=== PATIENT | male | born 1945 | race Caucasian/White ===

== ENCOUNTER 2018-04-29 17:33 | Inpatient (IN) ==
[2018-04-29] MEDS ORDERED: CARDIZEM ONE (17:41)
[2018-04-29] MEDS ORDERED: CARDIZEM IV ONE ×2 (17:46→18:08)
[2018-04-29] MEDS ORDERED: NITROGLYCERIN TOP ONE ×2 (17:47→19:08)
[2018-04-29 17:54] LABS: BE -1.7 mmoll (-3.0-3.0); BLOOD TYPE ARTERIAL; HCO3-(ACT) 23.5 mmoll (20.0-26.0); METHB 0.4 % (0.0-1.5); PCO2(98.6) 38 mmHg (35-45); PO2(98.6) 68 mmHg (60-100); SAMPLE BLOOD; SAO2 93.6 % (95.0-100.0); SRATE 20 BPM; THB 11.6 g/dL (11.5-17.4); pH(98.6) 7.39 (7.35-7.45)
--- NOTE | 2018-04-29 17:54 | EKG Report ---
Test Performed on : 04/29/2018 5:36:53 PM Test Reason : CHF Blood Pressure : / mmHG Vent. Rate : 139 BPM Atrial Rate : 133 BPM P-R Int : 000 ms QRS Dur : 136 ms QT Int : 358 ms P-R-T Axes : 000 234 170 degrees QTc Int : 544 ms Atrial fibrillation. with rapid ventricular response. with premature ventricular or aberrantly conduc angie complexes. Right superior axis deviation Nonspecific intraventricular block Cannot rule out Anteroseptal infarct (cited on or before 22-DEC-2017) Abnormal ECG When compared with ECG of 22-DEC-2017 23:27, Atrial fibrillation. has replaced Sinus rhythm. Vent. rate has increased BY 64 BPM Nonspecific intraventricular block has replaced Incomplete right bundle branch block Questionable change in initial forces of Anteroseptal leads Unconfirmed Result
[2018-04-29 18:04] LABS: ALLEN TEST YES; MODALITY BI PAP
[2018-04-29 18:15] LABS: BASO# 0.04 X1000 (0.0-0.2); BASO% 0.3 % (0.0-0.8); EOS# 0.08 X1000 (0.0-0.7); EOS% 0.6 % (0.0-10.0); HEMATOCRIT 36.1 % (42.0-52.0); HEMOGLOBIN 11.1 g/dL (14.0-18.0); IMM GRAN# 0.04 X1000 (0.0-0.04); IMM GRAN% 0.3 % (0.0-0.5); MCH 24.4 PG (27-31); MCHC 30.7 g/dL (33-37); MCV 79.3 FL (81-99); MONO% 6.4 % (1.7-9.3); MPV 10.5 FL (7.4-10.4); NEUT% 87.4 % (42.2-75.2); PLT 262 X1000 (130-400); RBC 4.55 XMIL (4.7-6.1); RDW 17.3 % (11.5-14.5); WBC 13.96 X1000 (4.8-10.8)
[2018-04-29] MEDS ORDERED: VANCOMYCIN 1 GM/NS 1 GM/250 ML IVPB IV ONE ×2 (18:32→21:00)
[2018-04-29] MEDS ORDERED: ZOSYN 3.375 GM in NS 50 ML IV ONE (18:33)
[2018-04-29] MEDS ORDERED: OFIRMEV 1000 MG/ISOTONIC SOLN 1,000 MG/100 ML BOTTLE IV STA (18:34)
[2018-04-29 18:43] LABS: INR 1.13; PROTIME 15.1 Seconds (11.0-16.0)
--- NOTE | 2018-04-29 18:43 | Diag Imaging Result Doc PS360 ---
EXAM: CHEST-PORTABLE INDICATION: sob TECHNIQUE: One view COMPARISON: 03/29/2018 FINDINGS: Lung volumes are low. There has been interval removal of the PICC line seen on the previous study. Central vasculature is prominent suggesting pulmonary venous congestion. There is suggestion of a small left effusion with adjacent atelectasis. Cardiac silhouette appears prominent similar to the previous study. IMPRESSION: Pulmonary venous congestion and left pleural effusion. Electronically signed by Tremaine Barajas 04/29/2018 6:40 PM
[2018-04-29 18:44] LABS: PTT 35.5 Seconds (22.3-41.8)
[2018-04-29] MEDS ORDERED: LASIX IV ONE (18:45)
[2018-04-29] MEDS ORDERED: ROCEPHIN 1 GM in NS 50 ML IV ONE (18:45)
[2018-04-29 18:49] LABS: AGAP 16; ALBUMIN 3.2 g/dL (3.5-5.0); ALKALINE PHOSPHATASE 64 U/L (32-122); BUN 9 mg/dL (8-22); CALCIUM 8.9 mg/dL (8.8-10.2); CHLORIDE 102 mmol/L (98-107); CK PROFILE 81 U/L (24-204); COSMO 281; CREATININE 0.5 mg/dL (0.7-1.2); ESTIMATED GFR > 60; GLUCOSE 192 mg/dL (70-104); GOT 23 U/L (10-34); GPT 7 U/L (10-44); POTASSIUM 3.7 mmol/L (3.5-5.1); SODIUM 139 mmol/L (136-145); TCO2 21 mmol/L (25-35); TOTAL PROTEIN 8.1 g/dL (6.3-8.3)
[2018-04-29] MEDS ORDERED: VANCOMYCIN IV PER PHARMACY MISC SCH (19:15)
--- NOTE | 2018-04-29 19:23 | PROVIDER DOCUMENTATION ---
This chart was entered by Eli Washington Scribe, acting as scribe for Venancio Gomez MD. HPI-Respiratory General - General Chief Complaint: Shortness of Breath Stated Complaint: RESPIRATORY Time Seen by Provider: 04/29/18 17:38 Source: patient Allergies/Adverse Reactions: Patient Allergies Allergy/AdvReac Type Severity Reaction Status Date / Time No Known Allergies Allergy Verified 04/28/18 19:16 Home Medications: Home Medication List Medication Instructions Recorded Confirmed Last Taken Type Bisoprolol Fumarate/Hctz 1 each PO DAILY 11/06/17 04/29/18 04/28/18 08:30 History [Bisoprolol-Hctz 5-6.25 mg Tab] Citalopram Hydrobromide 40 mg PO DAILY 11/06/17 04/29/18 04/28/18 08:30 History [Citalopram HBr] Metformin HCl [Metformin HCl ER] 500 mg PO TID 11/06/17 04/29/18 04/28/18 08:30 History Amlodipine [Norvasc] 10 mg PO DAILY #30 tab 11/10/17 04/29/18 04/28/18 08:30 Rx Hydralazine [Apresoline] 25 mg PO TID #90 tab 11/10/17 04/29/18 04/28/18 08:30 Rx Aspirin 81 mg PO DAILY 12/22/17 04/29/18 04/28/18 08:30 History Montelukast Sodium [Singulair] 10 mg PO DAILY 12/22/17 04/29/18 04/28/18 08:30 History SIMVAstatin [Zocor] 40 mg PO QHS 12/22/17 04/29/18 04/27/18 21:00 History Omeprazole [Prilosec] 40 mg PO DAILY@0700 capsule 12/27/17 04/29/18 04/28/18 08 :30 Rx Albuterol 2.5MG/Ipratrop 0.5MG 3 ml INH RTQ4H neb 02/24/18 04/28/18 Unknown Rx [Duoneb (A & A)] Clotrimazole/Bmethasone Cream 0 gm TOP BID tube 02/24/18 04/28/18 Unknown Rx [Lotrisone Cream] Furosemide [Lasix] 40 mg PO BID #60 02/24/18 04/29/18 04/28/18 08:30 Rx Insulin Glargine [Basaglar] 50 unit SUBQ HS insuln.pen 02/24/18 04/28/18 21:00 Rx Insulin Lispro [Humalog] 15 unit SQ TID AC #3 cartridge 02/24/18 04/28/18 08:30 Rx - History of Present Illness-Resp Nature of Presenting Problem: 73y/o white male with hx of diabetes, CHF, HTN who was recently treated with IV antibiotics for infection of R great toe presents via EMS with sob and productive cough with white sputum since yesterday. He denies chest pain currently. He denies hx of renal disease, cardiac disease, NM, stent placement. He denies smoking and alcohol use. He reports taking aspirin today. EMS gave the patient BiPAP, 4 units of nitro, and 40mg lasix en route to the ED. He denies diarrhea. Quality of Pain: reports: other (unsure) Severity in ED: reports: mild Onset/Duration: reports: 24 hours ago (yesterday) Timing: reports: still present, constant Cough Quality/Degree: reports: productive cough, sputum (white), blood streaked sputum Modifying Factors: improves with: nothing Associated Symptoms: reports: shortness of breath. denies: chest pain/soreness Similar Symptoms Previously?: No Recently seen or treated by another doctor?: No Review of Systems - Adult - REVIEW OF SYSTEMS - ADULT Constitutional: reports: fever. denies: chills Eyes: denies: discharge, dry eyes Ears, Nose, Mouth & Throat: denies: ear discharge, ear pain Cardiovascular: denies: chest pain, palpitations Respiratory: reports: cough, shortness of breath Gastrointestinal: denies: abdominal pain, diarrhea, vomiting Genitourinary: denies: dysuria, hematuria Musculoskeletal: denies: back pain, muscle aches, muscle weakness Integumentary: reports: no symptoms reported Neurological: denies: dizziness/vertigo, headache/migraines Psychiatric: reports: no symptoms reported Endocrine: reports: no symptoms reported Hematologic/Lymphatic: reports: no symptoms reported Allergic/Immunologic: reports: no symptoms reported All Other Systems: Reviewed and Negative Past History - Adult - PAST MEDICAL HISTORY-ADULT Review of Records: reports: Old Records Reviewed, Nursing Assessment Review, Medications Reviewed Major Childhood Illnesses: reports: denies history Cardiovascular: reports: CHF, HTN, hyperlipidemia Respiratory: reports: pneumonia Gastrointestinal: reports: denies history Obstetrical/Gynecological: reports: denies history Genitourinary: reports: denies history Musculoskeletal: reports: arthritis Neurological: reports: CVA, dementia Psychiatric: reports: depression Endocrine/Immune: reports: Diabetes Other Conditions: reports: denies history - PRIOR SURGERIES/PROCEDURES Surgical/Procedure History: reports: none - PRIOR HOSPITALIZATIONS Prior Hospitalizations: reports: none - IMMUNIZATION STATUS Childhood Immunizations: See Nurse Assessment Flu Vaccine: See Nurse Assessment - FAMILY HISTORY Family History: reviewed, not pertinent - SOCIAL HISTORY Smoking: non-smoker Substance Use: denies Living Situation: family Physical Exam-General - PHYSICAL EXAM-ADULT Exam Limited by: obesity Initial Vital Signs Reviewed: Yes - CONSTITUTIONAL General Appearance: alert, moderate distress, obese - EYES Eyes: PERRL/EOMI, pink conjunctivae - HEAD, EARS, NOSE, MOUTH & THROAT HENMT: pharynx normal. negative: moist mucous membranes (dry) - NECK Neck: non-tender, supple - RESPIRATORY Respiratory: respiratory distress, decreased breath sounds, accessory muscle use , crackles, rales, rhonchi, other (tachypneic) - CARDIOVASCULAR Cardiovascular: tachycardia - GASTROINTESTINAL (ABDOMEN) Abdominal Exam: non tender, soft - GENITOURINARY Male Genitalia: scrotal swelling. negative: erythema - MUSCULOSKELETAL Extremity: non-tender, pedal edema (LLE, RLE) - SKIN Integumentary: normal color, warm/dry, abrasion(s) (healing, RLE) - NEUROLOGIC Neurologic: grossly normal, no motor/sensory deficits - PSYCHIATRIC Psych/Mental Status: normal mood/affect, normal thought content, normal thought process, oriented x 3 Progress - PLAN OF CARE/RESULTS Progress/Plan/Lab Results: Vital Signs - 8 hr 04/29/18 17:35 04/29/18 17:36 04/29/18 18:07 Temperature Pulse Rate 146 H 145 H 130 H Respiratory Rate 36 H 36 H 30 H Blood Pressure 182/74 170/88 O2 Sat by Pulse Oximetry 95 94 L 94 L 04/29/18 18:24 04/29/18 18:45 Temperature 101.4 F H Pulse Rate 138 H Respiratory Rate 27 H Blood Pressure 149/77 O2 Sat by Pulse Oximetry 92 L Laboratory Results - last 24 hr 04/29/18 04/29/18 04/29/18 17:30 17:55 17:55 WBC 13.96 H RBC 4.55 L Hgb 11.1 L Hct 36.1 L MCV 79.3 L MCH 24.4 L MCHC 30.7 L RDW Std Deviation 17.3 H Plt Count 262 MPV 10.5 H Immature Gran % (Auto) 0.3 Neut % (Auto) 87.4 H Lymph % (Auto) 5.0 L Bailey % (Auto) 6.4 Eos % (Auto) 0.6 Baso % (Auto) 0.3 Immature Gran # (Auto) 0.04 Neut # (Auto) 12.20 H Lymph # (Auto) 0.70 L Bailey # (Auto) 0.90 H Eos # (Auto) 0.08 Baso # (Auto) 0.04 PT INR PTT (Actin FS) Specimen Type ARTERIAL Sample Site R RADIAL pH 7.39 pCO2 38 pO2 68 HCO3 23.5 Base Excess -1.7 Oxyhemoglobin 92.0 L ABG O2 Sat (Calculated) 15.0 ABG O2 Saturation 93.6 L ABG Carboxyhemoglobin 1.30 ABG Methemoglobin 0.4 Yeison Test YES A-a O2 Difference 241.0 Total Hemoglobin 11.6 Lactate 3.50 H Blood Gas Modality BI PAP Vent Mode BIPAP Spontaneous Rate 20 FiO2 % 50.0 Inspiratory BiPAP 22.0 Expiratory BiPAP 8.0 Sodium 139 Potassium 3.7 Chloride 102 Carbon Dioxide 21 L Anion Gap 16 BUN 9 Creatinine 0.5 L Estimated GFR/1.73 m2 > 60 BUN/Creatinine Ratio 18 Glucose 192 H Calculated Osmolality 281 Calcium 8.9 Magnesium Total Bilirubin 0.90 AST 23 ALT 7 L Alkaline Phosphatase 64 Creatine Kinase 81 Troponin T [id number] Pept Total Protein 8.1 Albumin 3.2 L Globulin 5.0 Albumin/Globulin Ratio 1.0 Plasma Lactate 04/29/18 04/29/18 04/29/18 17:55 17:55 17:55 WBC RBC Hgb Hct MCV MCH MCHC RDW Std Deviation Plt Count MPV Immature Gran % (Auto) Neut % (Auto) Lymph % (Auto) Bailey % (Auto) Eos % (Auto) Baso % (Auto) Immature Gran # (Auto) Neut # (Auto) Lymph # (Auto) Bailey # (Auto) Eos # (Auto) Baso # (Auto) PT 15.1 INR 1.13 PTT (Actin FS) 35.5 Specimen Type Sample Site pH pCO2 pO2 HCO3 Base Excess Oxyhemoglobin ABG O2 Sat (Calculated) ABG O2 Saturation ABG Carboxyhemoglobin ABG Methemoglobin Yeison Test A-a O2 Difference Total Hemoglobin Lactate Blood Gas Modality Vent Mode Spontaneous Rate FiO2 % Inspiratory BiPAP Expiratory BiPAP Sodium Potassium Chloride Carbon Dioxide Anion Gap BUN Creatinine Estimated GFR/1.73 m2 BUN/Creatinine Ratio Glucose Calculated Osmolality Calcium Magnesium Total Bilirubin AST ALT Alkaline Phosphatase Creatine Kinase Troponin T < 0.010 [id number]-Uzivzlqafxi Pept 1868 H Total Protein Albumin Globulin Albumin/Globulin Ratio Plasma Lactate 04/29/18 04/29/18 17:55 19:00 WBC RBC Hgb Hct MCV MCH MCHC RDW Std Deviation Plt Count MPV Immature Gran % (Auto) Neut % (Auto) Lymph % (Auto) Bailey % (Auto) Eos % (Auto) Baso % (Auto) Immature Gran # (Auto) Neut # (Auto) Lymph # (Auto) Bailey # (Auto) Eos # (Auto) Baso # (Auto) PT INR PTT (Actin FS) Specimen Type Sample Site pH pCO2 pO2 HCO3 Base Excess Oxyhemoglobin ABG O2 Sat (Calculated) ABG O2 Saturation ABG Carboxyhemoglobin ABG Methemoglobin Yeison Test A-a O2 Difference Total Hemoglobin Lactate Blood Gas Modality Vent Mode Spontaneous Rate FiO2 % Inspiratory BiPAP Expiratory BiPAP Sodium Potassium Chloride Carbon Dioxide Anion Gap BUN Creatinine Estimated GFR/1.73 m2 BUN/Creatinine Ratio Glucose Calculated Osmolality Calcium Magnesium 1.6 Total Bilirubin AST ALT Alkaline Phosphatase Creatine Kinase Troponin T Yyv-I-Eobjmfyzegy Pept Total Protein Albumin Globulin Albumin/Globulin Ratio Plasma Lactate 3.3 H Orders Category Date Time Status Admit - [facility] Routine AdmDCTranf 04/29/18 19:01 Active Activity - Strict Bedrest ORDERED Care 04/29/18 19:01 Active Cardiac Monitoring DIRECTED Care 04/29/18 17:34 Active Oxygen Therapy- ED Nursing DIRECTED Care 04/29/18 17:34 Active Resuscitation Status Routine Care 04/29/18 19:01 Ordered Saline Loc NOW Care 04/29/18 17:34 Active Vital Signs Order RTQ1H Care 04/29/18 19:01 Active Z-Document. for Tele Applied ORDERED Care 04/29/18 19:05 Active NPO Diet 04/29/18 19:04 Active CHEST-PORTABLE [RAD] Stat Exams 04/29/18 17:36 Completed ABG [RESP] Routine Lab 04/29/18 17:30 Completed BLOOD CULTURE [BLDCUL] Stat Lab 04/29/18 18:40 Ordered CBC WITH ELECTRONIC DIFF [HEME] Stat Lab 04/29/18 17:55 Completed CK PROFILE [SP CHEM] Stat Lab 04/29/18 17:55 Completed COMPREHENSIVE METABOLIC PANEL [CHEM] Stat Lab 04/29/18 17:55 Completed LACTATE, PLASMA [CHEM] Stat Lab 04/29/18 19:00 Completed MAGNESIUM [CHEM] Stat Lab 04/29/18 17:55 Completed PRO B-NATRIURETIC PEPTIDE Stat Lab 04/29/18 17:55 Completed PROTIME WITH INR [COAG] Stat Lab 04/29/18 17:55 Completed PTT [COAG] Stat Lab 04/29/18 17:55 Completed TROPONIN T Q4H Lab 04/29/18 20:00 Ordered TROPONIN T Q4H Lab 04/30/18 00:00 Ordered TROPONIN T Stat Lab 04/29/18 17:55 Completed Acetaminophen [Ofirmev 1000 mg/Isotonic Soln] Med 04/29/18 18:34 Discontinued 1,000 mg in 100 ml IV STAT CefTRIAXONE [Rocephin] 1 gm Med 04/29/18 18:45 Discontinued 0.9% Sodium Chloride Inj [Ns] 50 ml IV NOW Diltiazem [Cardizem] Med 04/29/18 17:46 Discontinued 10 mg IV NOW ONE Diltiazem [Cardizem] Med 04/29/18 18:08 Discontinued 10 mg IV NOW ONE Diltiazem [Cardizem] Med 04/29/18 17:41 Discontinued 25 mg .ROUTE .STK-MED ONE Furosemide [Lasix] Med 04/29/18 19:15 Ordered 40 mg IV Q12H Furosemide [Lasix] Med 04/29/18 18:45 Discontinued 60 mg IV NOW ONE Nitroglycerin Med 04/29/18 19:08 Discontinued 0.5 inch TOP NOW ONE Nitroglycerin Med 04/29/18 17:47 Discontinued 1 inch TOP NOW ONE Pharmacy Order [Vancomycin IV Per Pharmacy] Med 04/29/18 19:15 Ordered 1 each MISC DIRECTED Piperacillin/Tazobactam [Zosyn] 3.375 gm Med 04/29/18 18:33 Discontinued 0.9% Sodium Chloride Inj [Ns] 50 ml IV NOW Piperacillin/Tazobactam [Zosyn] 3.375 gm Med 04/29/18 19:15 Ordered 0.9% Sodium Chloride Inj [Ns] 50 ml IV Q6H Vancomycin 1 gm/Ns Med 04/29/18 18:32 Active 1 gm in 250 ml IV NOW BIPAP Stat Oth 04/29/18 17:40 Active CP/SOB/Palp >45 yrs of Age Stat Oth 04/29/18 17:34 Ordered Telemetry [OM.EQ] Routine Oth 04/29/18 19:01 Active EKG [EKG] Stat Ther 04/29/18 17:34 Draft Transfer/Admit Order [TRANSFER] Routine Transfer 04/29/18 19:06 Ordered patient is currently in right sided heart failure. IV fluid bolus would be contraindicated and very harmful to patient Result Diagrams: 04/29/18 17:55 04/29/18 17:55 - EKG 1 Time of EKG reading by physician:: 17:37 EKG Read and Signed by:: Satish Jennings EKG Interpretation (*Must complete 3 of following elements*): Abnormal Rate: 139 Rhythm: Atrial fibrillation w rapid vent response w erick. vent or aberr. cond. cpxs [place]: right Comments: wide based tachycardia, PVC's 2 Time of EKG reading by physician:: 18:00 EKG Read and Signed by:: Satish Jennings EKG Interpretation (*Must complete 3 of following elements*): Abnormal Rate: 135 Rhythm: Atrial fibrillation w rapid vent response w erick. vent or aberr. cond. cpxs [place]: right ST Wave: non-specific ST changes Comments: wide based tachycardia - CONSULTS/PCP/HOSPITALIST Notification #1 *Consult/PCP/Hospitalist*: Dr. Castle Time Discussed: 18:45 Consult Disposition: other (Patient has new onset A-fib and R-sided corpulmonale ) #2 Consult: Dr. Reed Time Discussed: 18:55 Consult Disposition: Admit - CHANGE OF SHIFT REPORT (ED Provider) Report Given and Care Transferred to:: Dr. Jennings transfer to Dr. Gomez Time of Transfer: 19:00 Items Pending: Other Departure - Departure Date of Disposition Decision: 12/29/18 Time of Disposition Decision: 19:25 DIAGNOSIS: New onset atrial fibrillation, Febrile illness, Diabetic foot infection CHF (congestive heart failure) Qualifiers: Heart failure type: right-sided Heart failure chronicity: acute Qualified Code( s): I50.811 - Acute right heart failure Disposition: ADMITTED INPATIENT 09 Certified Medical Emergency: Emergent Condition: Stable Additional Freetext Instructions: ED Follow Up Instructions: You have been treated by a care provider in the Emergency Department. These instructions are being provided to you so you can have an understanding of how to care for yourself upon discharge. Upon discharge from the Emergency Department, you are responsible for making arrangements for follow-up care by a physician of your choice. Take all prescribed medications as directed. Return to the Emergency Department immediately for any new or worsening symptoms. You may call the Physician Referral phone number at [phone] to obtain a list of Physicians who are taking new patients. - Critical Care Note This patient required my direct & personal management of CC.: Yes Total Time (mins): 95 Critical Care Statement: This patient required my direct personal management to treat or rule out processes, the absence of which, could potentiallly result in sudden, clinically significant life or limb threatening deterioration. Attestation - Physician/ NANNETTE Attestation Patient care was provided by Advanced Practice Provider:: Yes Advanced Practice Provider:: Cookie Carey Advanced Practice Provider documentation review:: The Mid-level provider documentation, treatment plan and medical decision making was reviewed by the physician who agrees with all treatment and medical decision making by the MLP. The physician spent face to face time with patient:: Yes Advanced Practice Provider documentation review:: Supervising physician onsite and consulted in the evaluation and care of this patient. The physician did have a face to face encounter with the patient. This chart was documented by the indicated scribe, (Eli Washington Scribe) and accurately reflects the services I performed and decisions made by me, Venancio Gomez MD, as attested by the provider's signature.
[2018-04-29] MEDS ORDERED: LOVENOX SUBQ ONE (19:28)
[2018-04-29] MEDS: TYLENOL PO PRN (21:51)
[2018-04-29] MEDS ORDERED: VANCOMYCIN 500 MG/NS 500 MG/100 ML IVPB IV ONE (22:00)
[2018-04-30] MEDS: ZOSYN 3.375 GM in NS 50 ML IV SCH ×4 (01:03→21:12)
[2018-04-30] MEDS: TYLENOL PR PRN (03:06)
[2018-04-30] MEDS: LASIX IV SCH ×3 (05:39→18:18)
[2018-04-30] MEDS ORDERED: XYLOCAINE 2% JELLY UROJECT TOP ONE (11:47)
--- NOTE | 2018-04-30 13:19 | EKG Report ---
Test Performed on : 04/30/2018 1:01:09 PM Test Reason : RYTHEM CHANGE Blood Pressure : / mmHG Vent. Rate : 109 BPM Atrial Rate : 129 BPM P-R Int : 392 ms QRS Dur : 078 ms QT Int : 354 ms P-R-T Axes : -76 056 -36 degrees QTc Int : 476 ms Unusual P axis, possible ectopic atrial tachycardia. with undetermined rhythm irregularity. Low voltage QRS Septal infarct (cited on or before 22-DEC-2017) Abnormal ECG When compared with ECG of 29-APR-2018 17:59, (Unconfirmed) Ectopic atrial rhythm. has replaced Atrial fibrillation. Questionable change in QRS duration Questionable change in initial forces of Anterior leads Confirmed by Satish Jennings MD ([id number]) on 05/02/2018 7:39:01 AM
[2018-04-30] MEDS ORDERED: LOVENOX SUBQ ONE (13:57)
[2018-04-30] MEDS ORDERED: MAGNESIUM SULFATE 2 GM/S.W.I. 2 GM/50 ML IVPB IV ONE (15:42)
[2018-04-30] MEDS ORDERED: HUMALOG DOSE (PARKWAY) SUBQ SCH (16:00)
[2018-04-30] MEDS ORDERED: CARDIZEM 125/NS 125 MG/125 ML IVPB IV SCH ×2 (16:00→19:00)
[2018-04-30] MEDS: VANCOMYCIN 2.5 GM in NS 500 ML IV SCH (17:49)
[2018-04-30] MEDS ORDERED: VANCOMYCIN 2.5 GM in NS 500 ML IV SCH (18:00)
[2018-04-30 18:36] LABS: URINE SOURCE CATH
[2018-04-30 18:40] LABS: BILIRUBIN URINE NEGATIVE (NEGATIVE); BLOOD URINE TRACE (NEGATIVE); COLOR YELLOW; GLUCOSE URINE NEGATIVE (NEGATIVE); KETONE URINE NEGATIVE (NEGATIVE); LEUKOCYTES URINE NEGATIVE (NEGATIVE); NITRITE URINE NEGATIVE (NEGATIVE); PH URINE 5.5; PROTEIN URINE 50 mg/dL (NEGATIVE); SP GRAVITY URINE 1.007; TURBIDITY URINE CLEAR (CLEAR); UROBILINOGEN URINE NORMAL (NORMAL)
[2018-04-30 18:41] LABS: UR EPITHELIAL CELLS <10 /HPF (<10); URINE BACTERIA NEGATIVE /HPF; URINE RBC <10 /HPF (<10); URINE WBC <10 /HPF (<10)
[2018-04-30 20:42] LABS: AGAP 14; BUN 13 mg/dL (8-22); CALCIUM 8.9 mg/dL (8.8-10.2); CHLORIDE 105 mmol/L (98-107); COSMO 286; CREATININE 0.7 mg/dL (0.7-1.2); ESTIMATED GFR > 60; GLUCOSE 151 mg/dL (70-104); MAGNESIUM 1.8 mg/dL (1.5-2.7); PHOSPHORUS 3.7 mg/dL (2.7-4.5); POTASSIUM 3.2 mmol/L (3.5-5.1); SODIUM 142 mmol/L (136-145); TCO2 23 mmol/L (25-35)
[2018-04-30] MEDS ORDERED: KLOR-CON PO SCH (21:00)
[2018-04-30] MEDS ORDERED: BASAGLAR SUBQ SCH (21:00)
[2018-04-30] MEDS: HUMALOG SUBQ SCH (21:11)
[2018-04-30] MEDS: ZOCOR PO SCH (21:12)
[2018-04-30] MEDS: PROTONIX IV SCH (21:12)
[2018-04-30] MEDS: LOTRISONE CREAM TOP SCH (21:12)
[2018-04-30] MEDS: GLUCOPHAGE XR PO SCH (21:12)
--- NOTE | 2018-04-30 21:56 | CARDIOLOGY CONSULTATION ---
DATE: 04/30/2018 INDICATION: Appearance of new onset atrial fibrillation CHIEF COMPLAINT: On presentation was shortness of breath. HISTORY OF PRESENT ILLNESS: Mr. Norton is a 73-year-old gentleman who appears to have a history of cor pulmonale and likely obstructive sleep apnea. He presented for evaluation of shortness of breath that has been going on over the last week or possibly longer. He has not had any heart racing with the exception of episodes that occur when he gets up and out of bed. He denies any orthopnea. The patient reports compliance with his medications. He has been on some outpatient antibiotic therapy for a diabetic foot wound. He has reported subjective fevers at home as high as 101. He did have a temperature of 101.4 degrees occurring yesterday evening at 1824 hours. Currently he is on diuretics however he has had some issues regarding voiding as he may have an obstruction and so his input and output is somewhat difficult to assess. PAST MEDICAL HISTORY: Per chart review is significant for 1. Morbid obesity. 2. Hypertension. 3. Hyperlipidemia. 4. Diabetes. 5. Lymphedema. 6. Osteoarthritis. 7. Diabetic foot wounds. 8. Likely obstructive sleep apnea. SOCIAL HISTORY: The patient does not currently smoke or drink alcohol. He is and lives in [place]. FAMILY HISTORY: Significant for diabetes, hypertension. REVIEW OF SYSTEMS: A 10 system review of systems is negative except for those things mentioned in HPI. PHYSICAL: T-max 101.4 degrees yesterday at 1824 hours. His heart rate is in the low 100s to 110s. His blood pressure is 135/71.General: He is in no acute distress. He is ill-appearing white male morbidly obese, lying relatively flat in bed. HEENT: Oropharynx is moist. He has poor dentition. His eye examination shows pink conjunctivae, white sclerae. Neck: Examination shows no obvious thyromegaly or thyroid tenderness. Cardiovascular: He sounds to be in a irregularly irregular rhythm. His current monitor seems to show a narrow complex tachycardia with some irregularity however it is a very difficult EKG, there does appear to be some occasional organized atrial activity suggesting the possibility of an atrial tach. He has marked bilateral lower extremity edema with skin changes consistent with lymphedema warm and well perfused. Chest: Has coarse breath sounds diffusely. Rales and rhonchi are heard throughout all lung vance as well as significant upper airway noise. No increased work of breathing. Abdomen: Soft, nontender, nondistended. He has no obvious organomegaly but it is a difficult exam secondary to his morbid obesity. Skin: Warm and dry throughout. He has lymphedema skin changes in his distal extremities with multiple areas of skin cracking. Neurological: He seems to be moving all extremities well. PERTINENT DATA: His original EKG yesterday at 1736 hours shows a wide complex tachycardia. This appears to be possibly aberrant conduction as there is some irregularity in it. His subsequent EKG occurring today at 1301 shows a narrow complex tachycardia 109 beats per minute. This may be an atrial tach. His chest x-ray demonstrates pulmonary venous congestion as well as a left pleural effusion. Does appear to be evidence of significant cardiomegaly on this examination. Difficult film. His laboratory data demonstrates white count of 13.9 which is up from his level of 6.2 on the 27 of March, his platelet count is 262,000, his hematocrit is 36, his sedimentation rate was 56 in March with a CRP of 22. His sodium is 139, potassium 3.7, BUN 9, creatinine 0.5. Cardiac enzymes are negative. His proBNP is 1868. ASSESSMENT: Mr. Norton is a 73-year-old morbidly obese white male with a history of a recent diabetic foot wound on home antibiotics. He presented with a new onset cardiac arrhythmia which appears most consistent with either atrial tach or atrial fibrillation. PLAN: I agree with continued use of diuretics. He is pending transfer over to [facility] for definitive management of his potential urinary obstruction/outlet issue. We will replete his magnesium. We will use a diltiazem infusion initially to try to control his heart rate. We will check a limited echocardiogram tomorrow to reevaluate his heart function. cc: MD Hayden Levine MD
[2018-04-30] MEDS ORDERED: POTASSIUM CHLORIDE 20% LIQUID PO ONE (22:14)
--- NOTE | 2018-04-30 22:36 | HISTORY AND PHYSICAL ---
CHIEF COMPLAINT: Shortness of breath. PRIMARY CARE PHYSICIAN: Dr. Alejandre. HISTORY OF PRESENT ILLNESS: This is a 73-year-old gentleman with a history of insulin-dependent diabetes mellitus, peripheral neuropathy, hypertension, cor pulmonale and recent MRSA secondary to osteomyelitis of his right great toe. He presents to the emergency room via EMS which he called for shortness of breath. On his arrival to the emergency room, he was on BiPAP and at that time he had an O2 saturation of 94-95% with blood gases with a pH of 7.39, pCO2 of 38 and pO2 of 68. He was found to be an atrial fibrillation with rapid ventricular rate and subsequently he was admitted to ICU for further evaluation and treatment. At the time of my exam, the patient is lying flat in the bed in the ICU with BiPAP in use, respirations are 18 to 20, heart rate 94 and he does state that he feels much better. PHYSICAL EXAMINATION: EYES: Pupils are equal, round, react to light. EOMs are intact. Sclerae are anicteric. HEENT: Head is normocephalic, atraumatic. Mucous membranes are dry. NECK: Supple with trachea midline. CARDIOVASCULAR: S1 and S2 are heard. He does have a 2-3/6 murmur at the apex. He has bilateral lower extremity edema with peripheral pulses palpable x4 extremities. PULMONARY: Breath sounds have wheezes scattered throughout. Chest rises and falls symmetrically with respiration. Chest wall is nontender to palpation. GASTROINTESTINAL: Abdomen is soft, nontender, nondistended with bowel sounds in all 4 quadrants. GENITOURINARY: Urine is light dante. NEUROLOGIC: He follows commands. He is alert. He nods yes and no to questions and he does try to talk through BiPAP. SKIN: Warm and dry. He does have a scab to his right foot with redness around his right great toe with known osteomyelitis. LABS: WBC is 13 with hemoglobin 11.1, hematocrit 36.1, and platelets 262,000. Sodium is 139, potassium 3.7, BUN 9, creatinine 0.5 with a glucose of 192. Troponins are negative on multiple occasions. Blood cultures are pending. Chest x-ray revealed pulmonary venous congestion and left pleural effusion. ASSESSMENT AND PLAN: 1. Tachycardia. It is not really clear if this is atrial fibrillation or aberrantly conducted complexes. We will consult Cardiology. We will give Lovenox 1 mg/kg and further treatment will be per Cardiology's expertise. 2. Uncontrolled diabetes mellitus. He will be placed on pattern blood glucose with sliding scale insulin. 3. Hypertension. We will trend his vital signs and restart home medications as appropriate. 4. Hyperlipidemia, aware. 5. Gastric reflux disease. We will start Protonix. 6. Cor pulmonale. We are aware. As stated above, cardiology consult. We will continue diuresis with Lasix 40 mg q.12 hours. 7. Recent osteomyelitis for methicillin-resistant Staphylococcus aureus to right toe. The patient has just recently completed antibiotics for 6 weeks, but as he has a white count we will get blood cultures and we will restart vancomycin and Zosyn and then further antibiotics will be culture dependent. Of course, we will continue telemetry. We will order CBC, CMP and magnesium in the morning. Further treatments pending hospital course. Dictated by CAROLINE Ruano for Delmar Reed MD This chart was documented by, CAROLINE Ruano and accurately reflects the services performed, treatment plan and medical decisions as attested by the providers signature Delmar eRed MD. cc: CAROLINE Ruano MD Bharat K. Vakharia, MD
[2018-04-30 22:38] LABS: ALLEN TEST YES; BE 4.8 mmoll (-3.0-3.0); BLOOD TYPE ARTERIAL; HCO3-(ACT) 28.7 mmoll (20.0-26.0); METHB 0.8 % (0.0-1.5); O2(CT) 14.3 mL/dL (15.0-23.0); O2HB 95.7 % (95.0-99.0); PCO2(98.6) 36 mmHg (35-45); PO2(98.6) 106 mmHg (60-100); SAMPLE BLOOD; SAO2 96.9 % (95.0-100.0); THB 10.5 g/dL (11.5-17.4)
[2018-04-30 22:38] LABS: AGAP 14; BUN 13 mg/dL (8-22); CALCIUM 8.8 mg/dL (8.8-10.2); CHLORIDE 104 mmol/L (98-107); COSMO 286; CREATININE 0.7 mg/dL (0.7-1.2); ESTIMATED GFR > 60; GLUCOSE 140 mg/dL (70-104); POTASSIUM 3.1 mmol/L (3.5-5.1); SODIUM 142 mmol/L (136-145); TCO2 24 mmol/L (25-35)
[2018-04-30 22:39] LABS: MODALITY CANNULA
--- NOTE | 2018-04-30 22:54 | HISTORY AND PHYSICAL ---
ADDENDUM: The patient seen and examined by myself. Full note dictated and discussed with nurse practitioner. Patient presented to the ER with a diabetic foot and ho was noted to be in atrial fibrillation with rapid ventricular response. Therefore, we will place him in the hospital ICU, ask Cardiology for assistance, continue his antibiotics for his foot and we will follow. cc: MD Hayden Almanza MD
--- NOTE | 2018-05-01 01:11 | HISTORY AND PHYSICAL ---
HISTORY OF PRESENT ILLNESS: Mr. Norton, who is a patient of Dr. Alejandre, went to [facility] for shortness of breath. He was found to be in congestive heart failure. He had left-sided pleural effusion, and was hospitalized there in the ICU. He was seeing Dr. Delmar Reed there. He was transferred this afternoon over here. He is being treated for congestive heart failure. He has a history of atrial fibrillation, without having any heart attack. He has a history of congestive heart failure. He says he gets lot of fluid on his legs. He was admitted in January here at [place] under Dr. Alejandre for stasis dermatitis and severe bilateral edema. There is a possibility of cirrhosis because he has splenomegaly. However, he says he does not have cirrhosis. He has insulin-dependent diabetes. MEDICATIONS: Diltiazem, furosemide, insulin, and Protonix at the present time. His medications at home include amlodipine, aspirin, bisoprolol HCT, citalopram, clotrimazole, or Lotrisone cream, furosemide tablets, hydralazine, Basaglar 75 units, Humalog, lisinopril, metformin, montelukast, omeprazole, and simvastatin. Currently, he stays at home with his . PAST SURGICAL HISTORY: No apparent surgeries in the past. He had a colonoscopy, which was negative. REVIEW OF SYSTEMS: Other than shortness of breath, he denies having any chest pain. He denies having any other issues, except for shortness of breath. PHYSICAL EXAMINATION: VITAL SIGNS: Pulse 121, irregularly irregular, respiratory rate 23 per minute, blood pressure 157/89, and his mean arterial blood pressure was felt. HEAD: Normocephalic. EYES: Pupils PERRLA. Fundus examination not done. NECK: Supple. JVP normal. ENT: Unremarkable. PERIPHERAL VASCULAR: There is no evidence of lymphadenopathy, thyroid enlargement, pedal edema, calf tenderness, anemia, cyanosis, or clubbing. Pedal pulses feeble. He has gross bilateral edema, but at present, with Lasix, the edema in the legs is about cleared up. BREAST: Reveals gynecomastia. He is grossly obese. HEART: PMI cannot be located. Heart sounds normal. No murmur, gallop, or rub noted. Heart is irregular. ABDOMEN: Obese. Hernial orifices normal. No guarding, rigidity, free fluid, masses, or organomegaly. Bowel sounds normal. RECTAL: Deferred. INDUSTRIAL PSYCHOLOGY PROFESSOR: Higher functions are normal. Cranial nerves normal. Motor and sensory system examination unremarkable. Deep tendon reflexes normal. Plantars downgoing. Skull and spine examination normal for age. He is in the bed, cannot move much. Gait was not checked. CLINICAL IMPRESSION: Congestive heart failure. Plan to continue the current management outlined for congestive heart failure. He had a Cardiology consult with Dr. Castle, and he has been followed by the type inspector. cc: MD Hayden Roca MD
[2018-05-01] MEDS: ZOSYN 3.375 GM in NS 50 ML IV SCH ×4 (02:34→21:32)
[2018-05-01] MEDS: TYLENOL PO PRN (02:43)
[2018-05-01 05:57] LABS: BASO# 0.04 X1000 (0.0-0.2); BASO% 0.5 % (0.0-0.8); EOS# 0.33 X1000 (0.0-0.7); EOS% 3.9 % (0.0-10.0); HEMATOCRIT 32.4 % (42.0-52.0); HEMOGLOBIN 9.8 g/dL (14.0-18.0); LYMPH# 0.89 X1000 (1.2-3.4); LYMPH% 10.6 % (20.5-51.1); MCH 24.4 PG (27-31); MCHC 30.2 g/dL (33-37); MCV 80.8 FL (81-99); MONO# 1.02 X1000 (0.11-0.59); MONO% 12.1 % (1.7-9.3); MPV 10.3 FL (7.4-10.4); NEUT# 6.13 X1000 (1.4-6.5); NEUT% 72.9 % (42.2-75.2); PLT 195 X1000 (130-400); RBC 4.01 XMIL (4.7-6.1); RDW 17.4 % (11.5-14.5); WBC 8.41 X1000 (4.8-10.8)
[2018-05-01] MEDS: LASIX IV SCH ×2 (06:09→17:13)
[2018-05-01] MEDS: HUMALOG SUBQ SCH ×6 (06:21→21:33)
[2018-05-01 06:52] LABS: AGAP 18; ALB/GLOB RATIO 0.5; ALBUMIN 2.5 g/dL (3.5-5.0); ALKALINE PHOSPHATASE 63 U/L (32-122); BUN 13 mg/dL (8-22); CALCIUM 8.7 mg/dL (8.8-10.2); CHLORIDE 93 mmol/L (98-107); COSMO 272; CREATININE 0.8 mg/dL (0.7-1.2); ESTIMATED GFR > 60; GLUCOSE 129 mg/dL (70-104); GOT 14 U/L (10-34); GPT 5 U/L (10-44); MAGNESIUM 1.7 mg/dL (1.5-2.7); POTASSIUM 3.3 mmol/L (3.5-5.1); SODIUM 135 mmol/L (136-145); TCO2 24 mmol/L (25-35); TOTAL BILIRUBIN 1.13 mg/dL (0.20-1.00); TOTAL PROTEIN 7.6 g/dL (6.3-8.3)
[2018-05-01] MEDS: PRINIVIL PO SCH (09:05)
[2018-05-01] MEDS: APRESOLINE PO SCH ×3 (09:05→17:12)
[2018-05-01] MEDS: ZIAC 5/6.25 MG PO SCH (09:05)
[2018-05-01] MEDS: ASPIRIN PO SCH (09:05)
[2018-05-01] MEDS: CELEXA PO SCH (09:05)
[2018-05-01] MEDS: NORVASC PO SCH (09:06)
[2018-05-01] MEDS: SINGULAIR PO SCH (09:06)
[2018-05-01] MEDS: LOTRISONE CREAM TOP SCH ×2 (09:06→21:34)
--- NOTE | 2018-05-01 10:27 | EKG Report ---
Test Performed on : 04/30/2018 10:12:21 PM Test Reason : CCU. No order in [place] Blood Pressure : / mmHG Vent. Rate : 118 BPM Atrial Rate : 131 BPM P-R Int : 000 ms QRS Dur : 078 ms QT Int : 332 ms P-R-T Axes : 000 106 244 degrees QTc Int : 465 ms Accelerated Junctional rhythm. with frequent premature ventricular complexes. Low voltage QRS Lateral infarct , age undetermined ST & T wave abnormality, consider inferior ischemia ST & T wave abnormality, consider anterior ischemia Abnormal ECG When compared with ECG of 30-APR-2018 22:11, (Unconfirmed) No significant change was found Confirmed by Alexandra PILLAI, Yeison Cole ([id number]) on 05/01/2018 3:19:40 PM
[2018-05-01] MEDS: VANCOMYCIN 2.5 GM in NS 500 ML IV SCH (11:53)
[2018-05-01] MEDS ORDERED: MAGNESIUM SULFATE 2 GM/S.W.I. 2 GM/50 ML IVPB IV ONE (13:30)
[2018-05-01] MEDS: POTASSIUM CHLORIDE 20% LIQUID PO SCH ×2 (13:49→21:33)
--- NOTE | 2018-05-01 14:19 | CARDIOLOGY PROGRESS NOTE ---
DATE: 05/01/2018 SUBJECTIVE: Mr. Norton has no complaints today. He reports he feels a little bit better. His breathing has improved. He has had no palpitations. He appears to have converted into a sinus mechanism. PHYSICAL EXAMINATION: Vital Signs: He is afebrile. His heart rate is in the 50s predominantly. His blood pressure is 111/56. His in and outs over the last 24 hours are -2.3 L. General: He is in no acute distress. Cardiovascular: He is in a regular rate and rhythm. He has no murmurs. No S3. He has marked bilateral lower extremity edema and lymphedema type changes. Chest: Clear but he has very poor inspiratory effort and distant heart sounds. Abdomen: Soft, nontender. PERTINENT DATA: White count 8.4, hematocrit is 32, his platelet count is 195, 000. His sodium is 135, potassium 3.3. His BUN is 13, creatinine 0.8. His magnesium level is 1.7. ASSESSMENT: Mr. Norton is a 73-year-old gentleman who presents with heart failure and new onset atrial fibrillation. PLAN: I have repleted his potassium and magnesium. We will discontinue his diltiazem. He is relatively bradycardic right now so would just continue on the current meds that he is on. I will check an echocardiogram on the patient, basic metabolic panel and a BNP and magnesium will be checked tomorrow morning. cc: MD Hayden Levine MD MTDD
[2018-05-01] MEDS ORDERED: LOVENOX SUBQ SCH (15:30)
--- NOTE | 2018-05-01 15:37 | PROGRESS NOTE ---
DATE: 05/01/2018 SUBJECTIVE: Mr. Norton is a 73-year-old, white gentleman, admitted with febrile illness. Patient had diabetic foot, some fever, chills. Also found to have atrial fibrillation with rapid ventricular response. The patient had shortness of breath. Initially admitted to [facility] ICU. They had hard time putting Kessler catheter. Plan was to send patient to [place] and they have sent patient here for urology evaluation. In [place], nurses were able to place the Kessler catheter. Regional Economist is following patient with us. The patient is feeling some better. The patient converted to sinus rhythm. He denied any chest pain. No nausea or vomiting. Denied any fever or chills. No typical chest pain. His vital sign for the admission history and physical noted. OBJECTIVE: Vital Signs: Noted. Blood pressure low normal. Neck: Supple. No JVD. Lungs: Bibasilar crepitations. Heart: S1 and S2 heard. Abdomen: Soft, globular. Bowel sounds present. Extremities: No cyanosis, clubbing. Patient does have bilateral leg swelling. Some toe infection. Central Nervous System: Alert, awake, answering questions fairly well. LABORATORY DATA: Done today, hemoglobin 9.8, hematocrit 32.4. WBC count 8.41 and platelet count 195,000. Electrolytes: Patient does have hypokalemia. His magnesium is 1.7. The patient's admission chest x-ray did reveal pulmonary venous congestion and left pleural effusion. ASSESSMENT: 1. Consideration atrial fibrillation with rapid ventricular response. Now converted to sinus rhythm. 2. Pulmonary edema. 3. Infected foot. 4. Morbid obesity. 5. Sleep apnea. 6. Chronic respiratory failure. 7. Hypertension. 8. Diabetes mellitus. I am going to cut back his insulin dose. 9. Hypokalemia, will supplement potassium. Overall plan discussed at length with the patient. cc: Hayden Alejandre MD
[2018-05-01] MEDS ORDERED: INSULIN PEN NEEDLES ONE (21:28)
[2018-05-01] MEDS: GLUCOPHAGE XR PO SCH (21:32)
[2018-05-01] MEDS: ZOCOR PO SCH (21:33)
[2018-05-01] MEDS: PROTONIX IV SCH (21:33)
[2018-05-01] MEDS: BASAGLAR SUBQ SCH (21:34)
[2018-05-02] MEDS: ZOSYN 3.375 GM in NS 50 ML IV SCH ×4 (02:57→20:31)
[2018-05-02] MEDS: TYLENOL PO PRN (03:03)
[2018-05-02] MEDS: LASIX IV SCH (06:04)
[2018-05-02] MEDS: HUMALOG SUBQ SCH ×4 (06:28→20:31)
[2018-05-02 07:54] LABS: BASO# 0.04 X1000 (0.0-0.2); BASO% 0.5 % (0.0-0.8); EOS# 0.45 X1000 (0.0-0.7); EOS% 5.5 % (0.0-10.0); HEMATOCRIT 31.5 % (42.0-52.0); HEMOGLOBIN 9.5 g/dL (14.0-18.0); IMM GRAN# 0.02 X1000 (0.0-0.04); IMM GRAN% 0.2 % (0.0-0.5); LYMPH# 0.71 X1000 (1.2-3.4); LYMPH% 8.7 % (20.5-51.1); MCH 24.7 PG (27-31); MCHC 30.2 g/dL (33-37); MCV 81.8 FL (81-99); MONO# 1.05 X1000 (0.11-0.59); MONO% 12.9 % (1.7-9.3); MPV 10.1 FL (7.4-10.4); NEUT% 72.2 % (42.2-75.2); PLT 218 X1000 (130-400); RBC 3.85 XMIL (4.7-6.1); RDW 17.7 % (11.5-14.5); WBC 8.17 X1000 (4.8-10.8)
[2018-05-02 08:14] LABS: AGAP 12; ALB/GLOB RATIO 0.6; ALBUMIN 2.9 g/dL (3.5-5.0); ALKALINE PHOSPHATASE 52 U/L (32-122); BUN 21 mg/dL (8-22); CALCIUM 8.2 mg/dL (8.8-10.2); CHLORIDE 101 mmol/L (98-107); COSMO 278; CREATININE 1.6 mg/dL (0.7-1.2); ESTIMATED GFR 43; GLUCOSE 117 mg/dL (70-104); GOT 10 U/L (10-34); GPT < 5 U/L (10-44); POTASSIUM 4.2 mmol/L (3.5-5.1); SODIUM 137 mmol/L (136-145); TCO2 24 mmol/L (25-35); TOTAL BILIRUBIN 0.89 mg/dL (0.20-1.00); TOTAL PROTEIN 7.5 g/dL (6.3-8.3)
--- NOTE | 2018-05-02 08:34 | Diag Imaging Result Doc PS360 ---
EXAM: CHEST-PORTABLE INDICATION: dyspnea TECHNIQUE: One view COMPARISON: 04/29/2018 FINDINGS: There has been interval complete opacification of the left hemithorax probably due to development of a large pleural effusion and/or marked atelectasis. On the right, pulmonary venous congestion and pulmonary edema have worsened. The cardiac silhouette is largely obscured by the dense opacification on the left. IMPRESSION: Interval development of complete opacification of the left lung as described with worsening pulmonary edema and pulmonary venous congestion. Electronically signed by Tremaine Barajas 05/02/2018 8:32 AM
[2018-05-02] MEDS: SINGULAIR PO SCH (08:36)
[2018-05-02] MEDS: PRINIVIL PO SCH (08:36)
[2018-05-02] MEDS: NORVASC PO SCH (08:36)
[2018-05-02] MEDS: ZIAC 5/6.25 MG PO SCH (08:36)
[2018-05-02] MEDS: CELEXA PO SCH (08:36)
[2018-05-02] MEDS: LOTRISONE CREAM TOP SCH ×2 (08:36→20:30)
[2018-05-02] MEDS: APRESOLINE PO SCH ×3 (08:36→17:34)
[2018-05-02] MEDS: ASPIRIN PO SCH (08:37)
--- NOTE | 2018-05-02 11:57 | ECHO REPORT ---
ORDER DATE: 05/01/2018 INDICATION: Congestive heart failure. FINDINGS: 1. The right atrium is moderately to severely enlarged with a dimension of 5 cm. 2. Mild tricuspid regurgitation. RV systolic pressure of 45. 3. Poor visualization of the right ventricle due to the patient's body habitus, but there appears to be moderate reduction in RV systolic function with an enlargement of the right ventricle. 4. No significant pulmonic insufficiency. 5. Severe left atrial enlargement with a dimension of 5.2 cm and a suggested volume index of 78. 6. No mitral valve prolapse. Trace mitral regurgitation. 7. The left ventricle is mildly dilated at 5.8 cm. Normal wall thicknesses with a posterior and interventricular septal wall thickness 1.1 cm each. Likely normal LV systolic function with an estimated EF of 60%. Definity echo contrast was used to help visualize. 8. The aortic valve opens well. No evidence of stenosis or insufficiency. 9. The aorta appears somewhat dilated with a dimension of 3.9 cm. This was noted previously on echo in August 2017. 10. No pericardial effusion seen. 11. The right ventricle and left ventricle appear to be relatively stable from the echo in August 2017. cc: MD Hayden Levine MD
[2018-05-02] MEDS ORDERED: D5 1/2 NS 500 ML IV SCH (12:45)
--- NOTE | 2018-05-02 13:28 | CARDIOLOGY PROGRESS NOTE ---
DATE: 05/02/2018 SUBJECTIVE: Mr. Norton reports he is feeling a little bit worse today but overall his breathing has improved. He has no other complaints. No pain complaints. PHYSICAL EXAMINATION: Vital signs: Patient is afebrile. His heart rates seem to be in the 50s to 70s. His telemetry currently shows sinus rhythm. His blood pressure is 113/66. His I's and O's seem to be positive over the last 24 hours. General: He is in no acute distress. Cardiovascular: He is in a regular rate and rhythm. He has no obvious murmurs. He has 1+ bilateral lower extremity edema with warm and well perfused lower extremities. Chest: Exam is clear bilaterally with poor inspiratory effort. Abdomen: Soft, nontender. PERTINENT DATA: His white count is 8.1, hematocrit 31, platelet count 218,000. His sodium is 137, potassium 4.2, BUN 21, creatinine 1.6, which is up from 13 and 0.8. ProBNP is 1,546. ASSESSMENT: Mr. Norton is a 73-year-old gentleman with what appears to be right-sided heart failure. In addition, he previously had atrial fibrillation during this hospitalization. PLAN: I will give him a slight fluid challenge. We will recheck his laboratories in the morning. I have stopped his diuretics. cc: MD Hayden Levine MD
--- NOTE | 2018-05-02 14:11 | PROGRESS NOTE ---
DATE: 05/02/2018 SUBJECTIVE: Mr. Norton is doing fair. Patient complaining of hemoptysis. He denied any typical chest pain. Mild cough. No high-grade fever or chills. Does have mild shortness of breath. No nausea or vomiting. Oral intake is poor. At times dysphagia. Urine output was low. Ssis Architect evaluated the patient. No leg swelling. OBJECTIVE: Vital Signs: Blood pressure 113/66, pulse 57, respirations 24, temperature 97.8 degrees. Skin: Senile turgor. The patient does have stasis dermatitis both the legs. CVS: S1 and S2 heard. Abdomen: Soft, globular. Bowel sounds present. Extremities: No cyanosis, clubbing. Dermatitis both the legs. TRIM ATTACHER: Alert, awake answering questions fairly well. LABORATORY DATA: Done today, hemoglobin 9.5, hematocrit 31.5, WBC count 8.17, platelet 218,000. Electrolytes potassium 4.2, BUN was 21, creatinine 1.6. ProBNP was 1546. Chest x-ray revealed interval development of complete opacification of the left lung with worsening pulmonary edema and pulmonary venous congestion. CONSIDERATION: 1. Paroxysmal atrial fibrillation. 2. Diabetes mellitus. 3. Pleural effusion. The patient does have hemoptysis. 4. Morbid obesity. 5. Osteoarthritis. The patient lab and medication noted. I am going to get pulmonary consult with Dr. Delgado for further evaluation. Overall plan discussed with the patient and he is in agreement. cc: Hayden Alejandre MD
[2018-05-02] MEDS ORDERED: D5 1/2 NS 1,000 ML IV SCH (14:15)
[2018-05-02] MEDS: DUONEB (A & A) INH SCH ×3 (15:39→23:44)
[2018-05-02] MEDS ORDERED: DUONEB (A & A) INH SCH (16:00)
--- NOTE | 2018-05-02 17:23 | Diag Imaging Result Doc PS360 ---
EXAM: CT THORAX W/O CONTRAST INDICATION: Atelectasis left lung TECHNIQUE: This exam was performed using automated exposure control, adjustment of mA or kV according to patient size, and/or use of iterative reconstruction technique. COMPARISON: 11/06/2017 FINDINGS: There is complete opacification of the left mainstem bronchus likely from severe mucous plugging. This has resulted in complete collapse of the left lung. There is a small amount of mucoid debris in the distal trachea. The right mainstem bronchus is clear. There is also a large pleural effusion on the left. There is a small to moderate-sized effusion on the right and there is right basilar subsegmental atelectasis. There are interstitial and airspace opacities involving the aerated portion of the right lung indicating edema most likely. There is marked cardiomegaly. There are calcified mediastinal and right hilar lymph nodes indicating prior granulomatous disease. There are other small shotty noncalcified lymph nodes in the mediastinum that are probably reactive. There is leftward mediastinal shift related to the volume loss on the left. There is material in the esophagus that appears semisolid. This may be due to gastroesophageal reflux. Limited views of the upper abdomen reveal a cirrhotic liver. There is splenomegaly and there are dilated splenic varices. There is small volume ascites tracking around the liver and the spleen. Cholelithiasis is noted incidentally. IMPRESSION: 1.Obstruction of the left mainstem bronchus that is probably due to severe mucous plugging with associated complete collapse of the left lung. 2.Large left pleural effusion and small to moderate-sized right pleural effusion. 3.Suggestion of pulmonary edema involving the aerated portion of the right lung. 4.Material within the esophagus which may represent food products or may be due to gastroesophageal reflux. 5.Cirrhosis with splenomegaly and dilated splenic varices suggesting portal hypertension. 6.Ascites. 7.Cholelithiasis. Electronically signed by Tremaine Barajas 05/02/2018 5:20 PM
--- NOTE | 2018-05-02 19:36 | PULMONOLOGY CONSULTATION ---
DATE: 05/02/2018 REQUESTING PHYSICIAN: Dr. Hayden Alejandre. REASON FOR CONSULTATION: Respiratory failure. HISTORY OF PRESENT ILLNESS: Mr. Norton is a 73-year-old white male with morbid obesity and a BMI of greater than 40, cirrhosis with portal hypertension, and gastroesophageal reflux. He presented to the emergency room on 04/30/2018 with increasing cough, increasing shortness of breath, and fevers. The patient was noted to be in atrial fibrillation with rapid ventricular response. His temperature in the emergency room was 101.4 degrees. He was in fluid overload and did improve following diuresis. A chest x-ray today reveals near-complete opacification of the left hemithorax which has developed over the last 48 hours. The patient does report a cough productive of bloody, purulent sputum. PAST MEDICAL HISTORY/PROBLEM LIST: 1. Morbid obesity. 2. Diabetes mellitus. 3. Cirrhosis with portal hypertension. 4. Depression. 5. Prior admission to the hospital with probable reflux and aspiration event. 6. Gastroesophageal reflux disease. 7. BPH. 8. New-onset atrial fibrillation 9. Prior evaluation by pulmonary in 2015. Sleep study was recommended, but I do not believe it was completed. SOCIAL HISTORY: No tobacco or alcohol use listed. FAMILY HISTORY: Noncontributory to current presentation. REVIEW OF SYSTEMS: As noted in the HPI but otherwise negative. PHYSICAL EXAMINATION: GENERAL: Reveals a morbidly obese white male who appears to be resting comfortably with no increased work of breathing on nasal cannula. HEENT: Pupils are equal and reactive. Oropharynx appears clear. NECK: Supple. CHEST: Reveals near-absence of breath sounds in the left lung. CARDIAC: Irregularly irregular. Normal S1 and S2. ABDOMEN: Obese and soft. EXTREMITIES: Reveal chronic dermatitis in both lower extremities . LABORATORIES: Chest x-ray reveals near-complete opacification on the left with increased pulmonary venous congestion. Arterial blood gas last evening revealed a pH of 7.52, pCO2 of 36, pO2 of 106. Chemistry: Sodium 137, potassium 4.2, chloride 101, bicarbonate 24, BUN 21, creatinine 1.6. White blood count 8.17, hemoglobin 9.5, platelet count 218,000. IMPRESSION: A 73-year-old with morbid obesity and gastroesophageal reflux with history of diastolic heart failure who presents with acute hypoxemic respiratory failure, cor pulmonale with fluid overload, pleural effusion. The patient now has complete opacification of the left lung. There are no breath sounds present. I suspect that this may be a combination of atelectasis and effusion, given the rapid onset. He may have had an aspiration event, given his prior history. RECOMMENDATIONS: 1. Obtain CT scan of the thorax to better evaluate the left hemithorax. 2. Agree with holding blood thinners. 3. Continue broad-spectrum antibiotics. 4. Initiate Mucomyst as a mucolytic. 5. Cycle BiPAP at bedtime. and p.r.n. 6. Patient may require bronchoscopy, depending on the results of the CT scan, but he would be a high-risk candidate for any procedures. cc: MD Hayden Epstein MD
[2018-05-02] MEDS: MUCOMYST 20% INH SCH (20:05)
[2018-05-02] MEDS: PROTONIX IV SCH (20:31)
[2018-05-02] MEDS: BASAGLAR SUBQ SCH (20:32)
[2018-05-02] MEDS: ZOCOR PO SCH (20:32)
[2018-05-02] MEDS: GLUCOPHAGE XR PO SCH (20:32)
[2018-05-03] MEDS: ZOSYN 3.375 GM in NS 50 ML IV SCH (00:44)
[2018-05-03] MEDS: DUONEB (A & A) INH SCH ×6 (03:29→23:12)
[2018-05-03 05:15] LABS: CALCIUM 8.1 mg/dL (8.8-10.2); CREATININE 2.3 mg/dL (0.7-1.2); MAGNESIUM 2.1 mg/dL (1.5-2.7); POTASSIUM 4.5 mmol/L (3.5-5.1)
[2018-05-03] MEDS ORDERED: NS 1,000 ML IV SCH ×2 (05:45→06:45)
[2018-05-03] MEDS: HUMALOG SUBQ SCH ×4 (06:34→21:57)
--- NOTE | 2018-05-03 07:03 | PROGRESS NOTE ---
DATE: 05/03/2018 SUBJECTIVE: Mr. Norton is doing fair. Mild cough, scanty sputum production which was bloody. No high-grade fever or chills. Nurses reported decreased urine output. O2 saturation at times staying low. I appreciate Dr. Delgado's help managing this patient. No diarrhea, blood or mucus in the stool. The patient does have, at times, problems swallowing. No typical chest pain or palpitations. History part is limited. OBJECTIVE: Vital Signs: Vital signs noted. Blood pressure 114/58, pulse 83, respirations 8 and 13, O2 saturation was 92%. Patient was afebrile. Neck: Supple. No JVD. Difficult to comment on thyromegaly. Lungs: Decreased air entry, left base. Occasional wheezing. CVS: S1 and S2 heard. Abdomen: Soft, globular. Bowel sounds present. Extremities: Minimal swelling. No acute DVT. CIRCLE EDGER: Alert, awake. Able to move all 4 limbs. Answering questions fairly well. Lab Data: Done today, his electrolytes, BUN was 29, creatinine 2.3. Patient's urine output was low. CONSIDERATION: 1. Patient admitted with paroxysmal atrial fibrillation. 2. Had left pleural effusion. Chest x-ray done yesterday did reveal opacification of left lung. The patient had CT scan done of the chest which did reveal obstruction of the left mainstem bronchus, probably due to severe mucus plugging with associated complete collapse of the left lung, large left pleural effusion, and small to moderate size right pleural effusion, suggestion of pulmonary edema involving the aerated portion of the right lung. 3. Gastroesophageal reflux disease. 4. Cirrhosis with splenomegaly and dilated splenic varices suggestive of portal hypertension. 5. Ascites. 6. Cholelithiasis. 7. Other problems include acute on chronic kidney disease, diabetes mellitus, hypertension. PLAN: Overall prognosis fair to guarded. The patient is morbidly obese. Because of renal failure, I am going to hold his metformin. We will do gentle hydration. Continue rest of the treatment and close observation. I did talk to his yesterday and discussed about his condition and prognosis. cc: Hayden Alejandre MD
--- NOTE | 2018-05-03 07:19 | Diag Imaging Result Doc PS360 ---
EXAM: CHEST-PORTABLE 05/03/2018 HISTORY: respiratory failure TECHNIQUE: AP portable at 0550 COMMENT: The left hemithorax is completely opacified. There may be pleural fluid on the left however the mediastinum is shifted to the left suggesting a degree of atelectasis and possible mucous plugging. There is interstitial and alveolar pulmonary edema on the right. IMPRESSION: 1. Left-sided mucous plugging and atelectasis. 2. Pulmonary edema. Electronically signed by Terry Díaz 05/03/2018 7:17 AM
[2018-05-03] MEDS: MUCOMYST 20% INH SCH ×2 (07:58→20:10)
[2018-05-03] MEDS: ZOSYN 2.25 GM in NS 50 ML IV SCH ×3 (08:11→21:57)
[2018-05-03] MEDS: NORVASC PO SCH (08:12)
[2018-05-03] MEDS: ZIAC 5/6.25 MG PO SCH (08:12)
[2018-05-03] MEDS: SINGULAIR PO SCH (08:13)
[2018-05-03] MEDS: ASPIRIN PO SCH (08:13)
[2018-05-03] MEDS: CELEXA PO SCH (08:13)
[2018-05-03] MEDS: APRESOLINE PO SCH ×3 (08:13→16:14)
[2018-05-03] MEDS: PRINIVIL PO SCH (08:14)
[2018-05-03] MEDS: LOTRISONE CREAM TOP SCH ×2 (09:15→21:58)
--- NOTE | 2018-05-03 09:27 | EKG Report ---
Test Performed on : 04/29/2018 5:59:34 PM Test Reason : ER Blood Pressure : / mmHG Vent. Rate : 135 BPM Atrial Rate : 141 BPM P-R Int : 000 ms QRS Dur : 136 ms QT Int : 364 ms P-R-T Axes : 000 249 177 degrees QTc Int : 546 ms Atrial fibrillation. with rapid ventricular response. with premature ventricular or aberrantly conduc angie complexes. Right superior axis deviation Nonspecific intraventricular block Cannot rule out Anteroseptal infarct (cited on or before 22-DEC-2017) T wave abnormality, consider inferolateral ischemia Abnormal ECG When compared with ECG of 29-APR-2018 17:36, (Unconfirmed) T wave inversion now evident in Inferior leads Unconfirmed Result
--- NOTE | 2018-05-03 11:25 | PULMONOLOGY PROGRESS NOTE ---
DATE: 05/03/2018 SUBJECTIVE: The patient is coughing. He is having minimal sputum production. He has no specific complaints. OBJECTIVE: Vital signs: Blood pressure 101/36, heart rate 59, respiratory rate 16, oxygen saturation 93% on nasal cannula. HEENT: Pupils are equal and reactive. Oropharynx is clear. Neck: Supple. Chest: Reveals absence of breath sounds in the left hemithorax. Cardiac: S1, S2. Abdomen: Obese and soft. Extremities: Reveal 1+ peripheral edema. LABORATORIES: Sodium 140, potassium 4.5, chloride 103, bicarbonate 24, BUN 29, creatinine 2.3. Chest x-ray reveals complete continued opacification of the left hemithorax. IMPRESSION: A 73-year-old with morbid obesity, gastroesophageal reflux, diastolic heart failure, cor pulmonale, fluid overload, and pleural effusion. CT scan of the thorax reveals moderate right- and left-sided pleural effusion with atelectasis of the left lung likely due to mucous plugging in the left mainstem. Despite nebulizer treatments including bronchodilators and mucolytics, he has not had an improvement in his chest x-ray. The patient has eaten breakfast this morning. He does not appear to be in overt respiratory distress. RECOMMENDATION: 1. N.P.O. after midnight. 2. Proceed with bronchoscopy for persistent mucous plugging likely related to a blood clot in the left mainstem tomorrow morning. cc: MD Hayden Epstein MD
--- NOTE | 2018-05-03 13:36 | CARDIOLOGY PROGRESS NOTE ---
DATE: 05/03/2018 SUBJECTIVE: Mr. Norton has no complaints today. OBJECTIVE: Vital signs: He is afebrile. His heart rate is 88. His blood pressure is 101/36. General: He is in no acute distress. Cardiovascular: He sounds to be in a regular rate and rhythm. I believe his telemetry currently seems to show sinus. He has lymphedema changes to his lower extremities. Abdomen: Soft, nontender, nondistended. He has no obvious organomegaly. Chest: Exam suggest reduced breath sounds on the left, clear on the right. LABORATORY DATA: Sodium is 140, potassium 4.5, BUN 29, creatinine 2.3, which is worsened from yesterday. ASSESSMENT: Mr. Norton is a 73-year-old male who presented with heart failure. Since that time, he has developed significant pleural effusions and renal insufficiency. He was given a fluid challenge yesterday and was positive around 1.5 L. It would be reasonable to give him slight fluid challenges secondary to his renal insufficiency, but must be cautious secondary to his respiratory status. His chest x-ray shows left-sided mucous plugging and atelectasis. He does have a preserved LV systolic function based on his echo. cc: MD Hayden Levine MD
[2018-05-03] MEDS ORDERED: NS 1,000 ML ONE (18:06)
[2018-05-03 18:27] LABS: URINE SOURCE CATH
[2018-05-03 18:41] LABS: BILIRUBIN URINE NEGATIVE (NEGATIVE); BLOOD URINE LARGE (NEGATIVE); COLOR BROWN; GLUCOSE URINE NEGATIVE (NEGATIVE); KETONE URINE NEGATIVE (NEGATIVE); LEUKOCYTES URINE MODERATE (NEGATIVE); NITRITE URINE NEGATIVE (NEGATIVE); PH URINE 5.5; PROTEIN URINE 200 mg/dL (NEGATIVE); SP GRAVITY URINE 1.019; TURBIDITY URINE TURBID (CLEAR); UR EPITHELIAL CELLS <10 /HPF (<10); URINE BACTERIA NEGATIVE /HPF; URINE RBC TNTC /HPF (<10); UROBILINOGEN URINE NORMAL (NORMAL)
[2018-05-03 18:47] LABS: URINE CASTS NONE SEEN; URINE CRYSTALS NONE SEEN; URINE SMALL ROUND CELLS NONE SEEN; URINE YEAST NONE SEEN
[2018-05-03 18:57] LABS: UR CREAT RANDOM 112.3 mg/dL (14-26); UR PROT RANDOM > 600.0 mg/dL; UR SODIUM 43 mmoll
[2018-05-03] MEDS: PROTONIX IV SCH (21:57)
[2018-05-03] MEDS: ZOCOR PO SCH (21:57)
[2018-05-04] MEDS: DUONEB (A & A) INH SCH ×6 (03:19→23:05)
[2018-05-04] MEDS: ZOSYN 2.25 GM in NS 50 ML IV SCH ×3 (03:38→20:04)
--- NOTE | 2018-05-04 04:07 | NEPHROLOGY CONSULTATION ---
DATE: 05/03/2018 REASON FOR CONSULTATION: Acute kidney injury. HISTORY OF PRESENT ILLNESS: Mr. Norton is a 73-year-old, white male with multiple medical problems including cor pulmonale, possible cirrhosis, a history of varices, COPD, etc. He has never had kidney disease of which he is aware. He presented to the hospital on the evening of the with a complaint of shortness of breath. No pain. He does have a cough with minimal sputum. He has been anorexic with some nausea. He relates some hematemesis as well. Minimal bowel movements. Minimal intake, however. He has had very little change in his symptomatology since admission. On admission, he did have atrial fibrillation with a rapid ventricular response. He was treated medically for this. He has a history of atrial fibrillation. In this context, he has had a couple of episodes of transient hypotension but he has not required vasopressor support. He was in negative fluid balance with diuretics over the first 48 hours. Since that time, his urine output has fallen dramatically and his creatinine has risen progressively from 0.8 on the to 2.3 today. He has not received any IV contrast. Review of his records finds no nephrotoxic medications with the possible exception of vancomycin. Vancomycin levels are 21 and 24 over the last 24 hours. PAST MEDICAL HISTORY: As above. HOME MEDICATIONS: Include citalopram, metformin, bisoprolol, hydrochlorothiazide, hydralazine, amlodipine, montelukast, simvastatin, aspirin, omeprazole, insulin, furosemide, lisinopril, and clotrimazole. ALLERGIES: None. SOCIAL HISTORY: He is and lives with his . He states she is in poor health as well. FAMILY HISTORY: Noncontributory. REVIEW OF SYSTEMS: Otherwise noncontributory. He is fixated on visual and auditory hallucinations related to a granddaughter. PHYSICAL EXAMINATION: Vital Signs: Blood pressure 139/64, heart rate 65, respirations 12, afebrile. General: No acute distress. Skin: Warm and dry. He has lichenification on the lower extremities. HEENT: Conjunctivae are pink. Pupils are equal. Oropharynx is clear. Neck: Supple. Neck veins are not appreciated. Trachea is midline. Heart: PMI is difficult to palpate. Auscultation demonstrates an irregular rhythm, rate controlled, with a systolic murmur. Lungs: Have equal breath sounds, with a few scattered crackles throughout. Decreased breath sounds on the left. He has increased respiratory rate. Abdomen: Obese and soft. Bowel sounds are present but diminished. No organomegaly or masses. Extremities: Have 2+ edema, primarily around the hips. No clubbing or cyanosis. IMPRESSION: Acute kidney injury. The pattern suggests acute tubular necrosis. He has been receiving intravenous fluids and has been in positive fluid balance over the last 2 days without improvement in his urine output. There is a suggestion in the chart that he has cirrhosis but his synthetic function does not appear to be that bad and it does not appear to be consistent with the diagnosis of hepatorenal syndrome. I will repeat his urinalysis as well as urine electrolytes, eosinophils, and protein. We will stop his intravenous fluids this afternoon and stop his GERALDINE inhibitor. Also stop his hydrochlorothiazide. Observe his response over the next 24 hours. No indications for hemodialysis at this time. cc: MD Hayden Lui MD
[2018-05-04] MEDS ORDERED: DIPRIVAN 1% 500 MG/50 ML BOTTLE ONE (06:32)
[2018-05-04] MEDS ORDERED: KETAMINE ONE (06:34)
[2018-05-04] MEDS ORDERED: FENTANYL ONE (06:42)
--- NOTE | 2018-05-04 06:58 | Diag Imaging Result Doc PS360 ---
EXAM: CHEST-PORTABLE HISTORY: respiratory failure TECHNIQUE: Chest, single view COMPARISON: 05/03/2018 FINDINGS: There is opacification of the left hemithorax similar to the prior study. There is vascular distention within the right lung. No right-sided pleural effusion identified. IMPRESSION: No interval improvement. Electronically signed by Bobo Jennings 05/04/2018 6:56 AM
[2018-05-04] MEDS ORDERED: XYLOCAINE 2% VISCOUS ONE (07:03)
[2018-05-04] MEDS ORDERED: SODIUM CHLORIDE 0.9% 20 ML ONE (07:03)
[2018-05-04] MEDS ORDERED: XYLOCAINE 2% ONE (07:03)
[2018-05-04] MEDS ORDERED: EPINEPHRINE ONE (07:03)
[2018-05-04] MEDS ORDERED: XYLOCAINE-MPF 2% ONE (07:26)
[2018-05-04] MEDS ORDERED: VERSED ONE (07:43)
[2018-05-04] MEDS: HUMALOG SUBQ SCH ×4 (08:35→20:05)
[2018-05-04] MEDS: MUCOMYST 20% INH SCH ×2 (08:39→09:37)
[2018-05-04] MEDS ORDERED: DIPRIVAN 1% ONE (08:39)
[2018-05-04] MEDS: DIPRIVAN 1% 1,000 MG/100 ML BOTTLE IV SCH ×9 (08:41→23:50)
--- NOTE | 2018-05-04 08:49 | OPERATIVE NOTE ---
PROCEDURE DATE: PROCEDURE PERFORMED: Bronchoscopy. CLINICAL INDICATIONS: Complete atelectasis of the left lung with respiratory failure. DESCRIPTION OF PROCEDURE: The patient was identified in the operating room. He reported that he had no questions prior to the initiation of the procedure. The procedure was initiated with light sedation/monitored anesthesia care but, midway into the procedure, the patient had progressive hypoxemia and was semiurgently intubated. He had no bradycardia associated with the intubation. PROCEDURE: Topical anesthesia was achieved. Viscous lidocaine to the left nostril with 2% lidocaine instilled above the vocal cords and 2% lidocaine below the vocal cords. The bronchoscope was advanced through the left nostril to the level of the vocal cords. The vocal cords had good movement. No lesions were identified. The bronchoscope was advanced into the trachea. There was copious amounts of purulent secretions noted in the trachea. A sample was suctioned for cultures and cytology. Airways to the right upper lobe, right middle lobe, and right lower lobe were patent without lesions. A large amount of mucus was obstructing the left mainstem. This required a significant amount of suctioning to clear. The airways were friable and bled easily. The patient had an oxygen desaturation at which point intubation was carried out as outlined above. When the patient was intubated, bronchoscope was advanced through the established airway and the airways were suctioned clear. All airways were examined. No endobronchial lesions were identified. There was mild bleeding which had ceased by the time the procedure was complete. There was some airway bruising associated with suctioning. The patient will be transported back to the Intensive Care Unit and placed on mechanical ventilation. cc: MD Hayden Epstein MD [facility]
[2018-05-04 08:55] LABS: ALLEN TEST YES; BE -2.5 mmoll (-3.0-3.0); BLOOD TYPE ARTERIAL; METHB 0.5 % (0.0-1.5); O2(CT) 15.8 mL/dL (15.0-23.0); O2HB 97.2 % (95.0-99.0); PCO2(98.6) 46 mmHg (35-45); PO2(98.6) 311 mmHg (60-100); SAMPLE BLOOD; SRATE 14 BPM; TVOL 700 mL; pH(98.6) 7.32 (7.35-7.45)
[2018-05-04 08:57] LABS: MODALITY VENTILATOR
[2018-05-04] MEDS ORDERED: ZEBETA PO SCH (09:00)
[2018-05-04 09:19] LABS: ALBUMIN 2.7 g/dL (3.5-5.0); CALCIUM 8.5 mg/dL (8.8-10.2); CREATININE 3.5 mg/dL (0.7-1.2); PHOSPHORUS 6.9 mg/dL (2.7-4.5); POTASSIUM 4.7 mmol/L (3.5-5.1); RANDOM VANCOMYCIN 17.8 ug/mL (5.0-80)
--- NOTE | 2018-05-04 09:20 | Diag Imaging Result Doc PS360 ---
EXAM: CHEST-1 VIEW HISTORY: intubation TECHNIQUE: Chest single view COMPARISON: 05/04/2018 at 5:23 AM FINDINGS: Interval placement of an endotracheal tube. The tip is located 2 cm above the melanie. There continues to be complete opacification of the left hemithorax as well as dense infiltrates/pulmonary edema on the right. IMPRESSION: Endotracheal tube in good position. Electronically signed by Bobo Jennings 05/04/2018 9:17 AM
--- NOTE | 2018-05-04 09:44 | Diag Imaging Result Doc PS360 ---
EXAM: CHEST/ABD TUBE PLACEMENT HISTORY: OG confirm placement TECHNIQUE: Portable chest abdomen single view COMPARISON: 05/04/2018 FINDINGS: Interval placement of a catheter which overlies the esophagus and upper stomach. There are multiple lines overlying the chest. Complete opacification of the left hemithorax remains. Electronically signed by Bobo Jennings 05/04/2018 9:42 AM
[2018-05-04] MEDS: LOTRISONE CREAM TOP SCH ×2 (09:45→20:04)
[2018-05-04] MEDS: APRESOLINE PO SCH ×3 (09:45→16:42)
[2018-05-04] MEDS: NORVASC PO SCH (09:45)
[2018-05-04] MEDS: ASPIRIN PO SCH (09:48)
[2018-05-04] MEDS: SINGULAIR PO SCH (09:48)
[2018-05-04] MEDS: CELEXA PO SCH (09:48)
--- NOTE | 2018-05-04 10:03 | NEPHROLOGY PROGRESS NOTE ---
DATE: 05/04/2018 SUBJECTIVE: He remained short of breath today. Still coughing, but perhaps less. OBJECTIVE: Vital Signs: Blood pressure 97/44, heart rate 55, respirations 15, afebrile. Intake 2.8 L; output 375 mL. General appearance: On physical exam, a chronically ill-appearing man with some increased work of breathing. Skin: Warm and dry. No new changes. Eyes: Conjunctivae are pink. Pupils are equal. Neck: Neck veins are distended with hepatojugular reflux. Oropharynx is dry. Heart: Regular with systolic murmur. Lungs: Have decreased breath sounds on the left with a few scattered rhonchi and crackles. Abdomen: Soft, obese, nontender. Bowel sounds present. Extremities: With 2+ edema. No clubbing or cyanosis. IMPRESSION: Acute kidney injury. Oliguric. BUN and creatinine are rising. He does not meet criteria for acute hemodialysis today, so we will continue close observation without change. He is not receiving maintenance intravenous fluids, and I have reviewed his medication again. The only change I see for today would be to decrease his piperacillin dose to every 8 hours. No other changes. cc: MD Hayden Lui MD
--- NOTE | 2018-05-04 12:42 | CARDIOLOGY PROGRESS NOTE ---
DATE: 05/04/2017 SUBJECTIVE: Mr. Norton is currently intubated and sedated. The results of the bronchoscopy were reviewed from earlier this morning. PHYSICAL EXAMINATION: Patient is afebrile. His heart rate is in the 50s. He is in sinus. His blood pressure is 118/52. Input and output, he has had a positive fluid balance documented over the last 48 hours or so. Generally, he is in no acute distress. Again, sedated on the ventilator. Cardiovascular: He sounds to be in a regular rate and rhythm. He has no murmurs. He has no S3. He has marked bilateral lower extremity with lymphedema-type changes. His chest exam shows improved air movement on the left with still some reduction on the left side. Right side is clear. He has no increased work of breathing. Abdomen is soft, nontender. PERTINENT DATA: His ABG was reviewed. His sodium is 136, potassium 4.7, BUN 43, creatinine 3.5. Yesterday, they were 29 and 2.3 respectively. ASSESSMENT: Mr. Norton is a 73-year-old gentleman with right-sided heart failure who had significant mucous plugging on the left and subsequently underwent a bronchoscopy. PLAN: I have no acute recommendations. He currently is in sinus rhythm. His renal function seems to be worsening overall. Hopefully, with adequate fluids, he will recover renal function. cc: MD Hayden Levine MD
--- NOTE | 2018-05-04 17:05 | Diag Imaging Result Doc PS360 ---
EXAM: US RENAL 2 (RETROPER) COMPLETE - 05/04/2018 HISTORY: decreased renal function TECHNIQUE: Bilateral renal ultrasound COMPARISON: 09/20/2017 FINDINGS: The right kidney measures 15.4 x 7.1 x 6.6 cm in size. The left is not visualized and presumably is obscured by artifacts. There is no right renal mass, stone, or hydronephrosis identified. There is fluid on the left which likely represents pleural fluid at the base of chest, although abdominal fluid such as ascites is not excluded. IMPRESSION: No visible right renal abnormality. No right hydronephrosis. The left kidney is obscured by artifacts. Fluid on the left which likely represents pleural fluid at the base of the chest, although fluid in the abdomen abdomen, such as ascites, is not excluded. Electronically signed by Anup Tolentino 05/04/2018 5:02 PM
[2018-05-04] MEDS: D5 1/2 NS 1,000 ML IV SCH (19:46)
[2018-05-04] MEDS: SODIUM CHLORIDE 0.9% INJ SCH (20:04)
[2018-05-04] MEDS: PROTONIX IV SCH (20:04)
[2018-05-04] MEDS: ZOCOR PO SCH (20:04)
[2018-05-04] MEDS: HYDROPHOR OINTMENT TOP SCH (20:05)
--- NOTE | 2018-05-04 20:27 | PROGRESS NOTE ---
DATE: 05/04/2018 SUBJECTIVE: Mr. Norton is doing fair. Patient underwent bronchoscopy and lavage today. Patient became hypoxemic requiring intubation and mechanical ventilation. The patient had collapse of his left lung, bilateral pleural effusions. Patient does have multiple medical problems, including cirrhosis of the liver. Renal failure which was deteriorating, diabetes mellitus. No high-grade fever or chills. The patient is intubated now, not able to give any history. OBJECTIVE: Neck: Supple. No JVD. Lungs: Bibasilar crepitation. Heart: S1 and S2 heard. Abdomen: Soft, globular. Bowel sounds present. Extremities: Patient does have dermatitis both the legs. Central Nervous System: Patient is sedated on the vent. CONSIDERATION: 1. Respiratory failure, acute on chronic on mechanical ventilation. 2. Acute on chronic kidney failure. 3. Cirrhosis of the liver. 4. Urinalysis done today did reveal UTI. The patient is on broad-spectrum antibiotics, longstanding diabetes mellitus, hypertension. LABORATORY DATA: Done today noted blood gas results reviewed. We will continue current treatment. Close observation. cc: Hayden Alejandre MD
[2018-05-05] MEDS: DIPRIVAN 1% 1,000 MG/100 ML BOTTLE IV SCH ×5 (01:25→14:36)
[2018-05-05] MEDS: ZOSYN 2.25 GM in NS 50 ML IV SCH ×3 (02:08→21:39)
[2018-05-05] MEDS: DUONEB (A & A) INH SCH ×6 (03:24→23:11)
[2018-05-05 04:30] LABS: ALLEN TEST YES; BE -5.1 mmoll (-3.0-3.0); BLOOD TYPE ARTERIAL; HCO3-(ACT) 20.9 mmoll (20.0-26.0); METHB 0.6 % (0.0-1.5); O2(CT) 15.3 mL/dL (15.0-23.0); O2HB 96.1 % (95.0-99.0); PCO2(98.6) 46 mmHg (35-45); PO2(98.6) 108 mmHg (60-100); SAMPLE BLOOD; SAO2 97.1 % (95.0-100.0); SRATE 12 BPM; THB 11.2 g/dL (11.5-17.4); TVOL 800 mL; pH(98.6) 7.28 (7.35-7.45)
[2018-05-05 04:31] LABS: MODALITY VENTILATOR
[2018-05-05 04:57] LABS: HEMATOCRIT 31.3 % (42.0-52.0); HEMOGLOBIN 9.5 g/dL (14.0-18.0); MCH 24.1 PG (27-31); MCHC 30.4 g/dL (33-37); MCV 79.2 FL (81-99); MPV 10.3 FL (7.4-10.4); RBC 3.95 XMIL (4.7-6.1); RDW 17.6 % (11.5-14.5); WBC 7.15 X1000 (4.8-10.8)
[2018-05-05 05:20] LABS: MAGNESIUM 2.4 mg/dL (1.5-2.7); PHOSPHORUS 7.1 mg/dL (2.7-4.5)
[2018-05-05 05:44] LABS: ALBUMIN 2.6 g/dL (3.5-5.0); CALCIUM 8.7 mg/dL (8.8-10.2); CREATININE 3.9 mg/dL (0.7-1.2); POTASSIUM 4.6 mmol/L (3.5-5.1); TOTAL BILIRUBIN 0.6 mg/dL (0.20-1.00); TOTAL PROTEIN 7.5 g/dL (6.3-8.3)
[2018-05-05 06:02] LABS: ALBUMIN 2.6 g/dL (3.5-5.0); CALCIUM 8.4 mg/dL (8.8-10.2); CREATININE 3.8 mg/dL (0.7-1.2); PHOSPHORUS 7.1 mg/dL (2.7-4.5); POTASSIUM 4.7 mmol/L (3.5-5.1)
[2018-05-05] MEDS: HUMALOG SUBQ SCH ×4 (06:38→21:46)
--- NOTE | 2018-05-05 06:41 | Diag Imaging Result Doc PS360 ---
EXAM: CHEST-PORTABLE HISTORY: respiratory failure TECHNIQUE: Portable chest single view COMPARISON: 05/04/2018 FINDINGS: Endotracheal tube in good position. The lungs are poorly expanded. Partial reexpansion of the upper left lung. There continues to be opacification of the lower right hemithorax. There is pulmonary edema although it is slightly less pronounced. There is cardiomegaly. IMPRESSION: Overall interval improvement. Electronically signed by Bobo Jennings 05/05/2018 6:39 AM
--- NOTE | 2018-05-05 06:46 | PROGRESS NOTE ---
DATE: 05/05/2018 SUBJECTIVE: Mr. Norton is doing fair. The patient is on ventilator. At times, bradycardic. Blood pressure is doing fair. Urine output was low. No vomiting. The patient is getting feeding through NG tube. No diarrhea, blood, or mucus in the stool. OBJECTIVE: His vital signs noted. Neck supple. No JVD. Lungs: Decreased air entry bilateral lung base. CVS: S1 and S2. Bradycardia. Abdomen soft, globular. Bowel sounds present. HELP DESK OPERATOR: Patient is on vent and sedated. Uncooperative for detailed exam. LABORATORY DATA: Lab data done today: Hemoglobin 9.5, hematocrit 31.3. WBC count 7.15. Blood gas: pH 7.28, pCO2 of 46, PO2 of 108. This was done on ventilator assist control at the rate of 12. FiO2 of 40%. Electrolytes: Sodium 134, potassium 4.7, chloride 99. CO2 was 18. BUN 48, creatinine 3.8. PROBLEMS: 1. Acute respiratory failure. 2. [id number] renal failure. 3. The patient does have cirrhosis of the liver. 4. Diastolic heart failure. 5. The patient does have aspiration pneumonia. The patient's labs and medication noted. Overall prognosis fair to guarded. Chest x-ray official result is pending. We will continue current treatment and close observation. I appreciate partner management consultant's help managing this patient. cc: Hayden Alejandre MD
[2018-05-05] MEDS: MUCOMYST 20% INH SCH ×2 (08:03→19:24)
[2018-05-05] MEDS: LOVENOX SUBQ SCH (08:07)
[2018-05-05] MEDS: SINGULAIR PO SCH (08:08)
[2018-05-05] MEDS: ZEBETA PO SCH (08:09)
[2018-05-05] MEDS: ASPIRIN PO SCH (08:09)
[2018-05-05] MEDS: CELEXA PO SCH (08:10)
[2018-05-05] MEDS: APRESOLINE PO SCH ×3 (09:47→18:23)
[2018-05-05] MEDS: HYDROPHOR OINTMENT TOP SCH ×2 (09:48→21:40)
[2018-05-05] MEDS: LOTRISONE CREAM TOP SCH ×2 (09:50→21:39)
[2018-05-05] MEDS: NORVASC PO SCH (09:50)
[2018-05-05] MEDS ORDERED: HEPARIN IV PRN (09:57)
[2018-05-05] MEDS ORDERED: NS 2,000 ML MISC PRN (09:57)
[2018-05-05] MEDS ORDERED: TIGHT: 0.2 ML/HR FOR DIALYSIS MISC PRN (09:57)
[2018-05-05] MEDS: D5 1/2 NS 1,000 ML IV SCH (11:24)
--- NOTE | 2018-05-05 11:27 | NEPHROLOGY PROGRESS NOTE ---
DATE: 05/05/2018 SUBJECTIVE: Mr. Norton is now intubated following his procedure yesterday, sedated. OBJECTIVE: Vital Signs: Blood pressure 135/52, heart rate 55, respirations 13. Intake 2.9 L. Output 260 mL. General: On physical exam, sedated, intubated. No distress. Skin: Warm and dry. HEENT: Conjunctivae are pink. Oropharynx is moist. Neck: Neck veins are not appreciated. Heart: Regular. No gallops. Lungs: Equal. No crackles. Few scattered crackles. Abdomen: Soft. Decreased bowel sounds. Obese. Extremities: Have 3+ edema. No clubbing or cyanosis. IMPRESSION: Acute kidney injury. No recovery and falling urine output. I discussed the case directly with Dr. Alejandre and with his . They are both in agreement that dialysis is appropriate and acceptable. I have consulted Dr. Dewey for placement of a Vas- Cath and we will plan for 3 hour treatment today using a 2 potassium bath and a goal of 2 L ultrafiltration as tolerated. cc: MD Hayden Lui MD
--- NOTE | 2018-05-05 12:52 | Diag Imaging Result Doc PS360 ---
EXAM: CHEST-PORTABLE 05/05/2018 HISTORY: VAs cath placement TECHNIQUE: AP portable at 1241 COMMENT: There is an endotracheal tube with its tip at thoracic inlet and an NG tube which apparently passes below the diaphragm. Compared to 05/05/2018 the left hemithorax is almost completely opacified and there is increased interstitial and alveolar opacity in the right lower chest. There is a right internal jugular central venous catheter tip of which is in the area of the superior vena cava. There is no evidence of pneumothorax. IMPRESSION: Worsened atelectasis on the left. Worsened pulmonary edema. Electronically signed by Terry Díaz 05/05/2018 12:49 PM
--- NOTE | 2018-05-05 12:54 | OPERATIVE NOTE ---
PROCEDURE DATE: 05/05/2018 I had been asked to place a Vas-Cath. The patient was placed in Trendelenburg. The right side of the neck was prepped and draped in a sterile fashion. We imaged the right internal jugular vein with ultrasound and proved it to be patent. We then made a small stab incision on his neck and introduced the large needle into the vein under direct visualization. We got good aspiration of blood. We then passed the guidewire without difficulty. We then dilated the tract sequentially and passed the Trialysis catheter to the extent that it would go. Blood came back in each lumen spontaneously. We then flushed each lumen with saline. We secured the flange to the skin with a nylon contained within the tray. The ChloraPrep again was used at the exit site again, and then dried, and then a sterile OpSite was applied. He tolerated it well. A chest x-ray was ordered. cc: MD Hayden Cintron MD
[2018-05-05] MEDS: PROTONIX IV SCH (21:39)
[2018-05-05] MEDS ORDERED: APRESOLINE IV PRN (22:09)
[2018-05-06] MEDS: D5 1/2 NS 1,000 ML IV SCH (00:07)
[2018-05-06] MEDS ORDERED: NS 500 ML ONE (01:19)
[2018-05-06] MEDS: DUONEB (A & A) INH SCH ×6 (03:18→23:37)
[2018-05-06] MEDS: TYLENOL PR PRN (03:25)
[2018-05-06] MEDS: DIPRIVAN 1% 1,000 MG/100 ML BOTTLE IV SCH ×4 (03:26→23:11)
[2018-05-06 04:57] LABS: ALLEN TEST YES; BE 0.4 mmoll (-3.0-3.0); BLOOD TYPE ARTERIAL; HCO3-(ACT) 25.2 mmoll (20.0-26.0); METHB 1.2 % (0.0-1.5); O2HB 95.3 % (95.0-99.0); PCO2(98.6) 37 mmHg (35-45); PO2(98.6) 92 mmHg (60-100); SAMPLE BLOOD; SAO2 96.9 % (95.0-100.0); SRATE 12 BPM; THB 9.6 g/dL (11.5-17.4); TVOL 800 mL; pH(98.6) 7.43 (7.35-7.45)
[2018-05-06 04:58] LABS: MODALITY VENTILATOR
[2018-05-06] MEDS: ZOSYN 2.25 GM in NS 50 ML IV SCH ×3 (04:58→20:47)
[2018-05-06 05:07] LABS: HEMOGLOBIN 8.9 g/dL (14.0-18.0)
[2018-05-06 05:39] LABS: ALB/GLOB RATIO 0.7; ALBUMIN 2.6 g/dL (3.5-5.0); CALCIUM 8.2 mg/dL (8.8-10.2); PHOSPHORUS 6.8 mg/dL (2.7-4.5); TOTAL BILIRUBIN 0.59 mg/dL (0.20-1.00); TOTAL PROTEIN 6.2 g/dL (6.3-8.3)
[2018-05-06 06:13] LABS: HEMATOCRIT 28.4 % (42.0-52.0); MCH 24.7 PG (27-31); MCHC 31.3 g/dL (33-37); MCV 78.7 FL (81-99); MPV 10.8 FL (7.4-10.4); RBC 3.61 XMIL (4.7-6.1); RDW 17.7 % (11.5-14.5); WBC 7.91 X1000 (4.8-10.8)
[2018-05-06] MEDS: HUMALOG SUBQ SCH ×4 (06:28→20:55)
--- NOTE | 2018-05-06 07:06 | Diag Imaging Result Doc PS360 ---
EXAM: CHEST-PORTABLE 05/06/2018 HISTORY: respiratory failure TECHNIQUE: AP portable chest at 0602 COMMENT: There is an endotracheal tube with its tip at the thoracic inlet. There is an NG tube with its tip below the diaphragm. The left hemithorax is completely opacified and there is shift of the mediastinum to the left presumably due to complete atelectasis of the lung. There is some interstitial as well as alveolar pulmonary edema in the right lung particularly in the lower lobe. This is slightly improved since the previous study. IMPRESSION: Complete atelectasis of the left lung which is probably due to mucous plugging. There may also be a pleural effusion on the left. Pulmonary edema. Electronically signed by Terry Díaz 05/06/2018 7:04 AM
[2018-05-06] MEDS: SINGULAIR PO SCH (08:10)
[2018-05-06] MEDS: ASPIRIN PO SCH (08:10)
[2018-05-06] MEDS: ZEBETA PO SCH (08:10)
[2018-05-06] MEDS: CELEXA PO SCH (08:10)
[2018-05-06] MEDS: HYDROPHOR OINTMENT TOP SCH ×2 (08:11→20:48)
[2018-05-06] MEDS: LOTRISONE CREAM TOP SCH ×2 (08:11→20:49)
[2018-05-06] MEDS: LOVENOX SUBQ SCH (08:11)
[2018-05-06] MEDS: MUCOMYST 20% INH SCH ×2 (08:33→19:42)
[2018-05-06] MEDS: NORVASC PO SCH (08:39)
[2018-05-06] MEDS: APRESOLINE PO SCH ×3 (09:24→16:01)
[2018-05-06] MEDS ORDERED: NS 2,000 ML MISC PRN ×2 (09:36→12:58)
[2018-05-06] MEDS ORDERED: VANCOMYCIN 1 GM/NS 1 GM/250 ML IVPB IV SCH (09:45)
[2018-05-06] MEDS ORDERED: HEPARIN IV PRN (12:58)
--- NOTE | 2018-05-06 13:00 | PROGRESS NOTE ---
DATE: 05/06/2018 SUBJECTIVE: The patient is asleep, on a ventilator. He is getting dialysis right now. OBJECTIVE: Vital Signs: Blood pressure 101/53, respirations 14, pulse 68, temperature 98.6 degrees Fahrenheit. HEENT: Normocephalic. Lungs: Faint breath sounds. Chest x-ray shows almost complete collapse of the left lung vance and some opacification of the right lung field as well. Heart: Regular rate and rhythm. Abdomen: Soft with active bowel sounds. ASSESSMENT: 1. Respiratory distress and arrest. 2. Renal failure. 3. Cirrhosis. 4. Diastolic heart failure. 5. Pneumonia. PLAN: Continue support. Condition critical. cc: MD Hayden Larios Jr, MD
--- NOTE | 2018-05-06 15:02 | NEPHROLOGY PROGRESS NOTE ---
DATE: 05/06/2018 SUBJECTIVE: Sedated, unresponsive, on the ventilator. OBJECTIVE: Vital Signs: Blood pressure 96/53, heart rate 62, respirations 14, afebrile. General: No acute distress. Skin: Warm and dry. Conjunctivae are pink. Neck: Neck veins are not visible. Heart: Regular with systolic murmur. Lungs: Equal. Decreased. A few scattered crackles. Abdomen: Soft, obese, nontender. Bowel sounds are present. Extremities: 3+ edema. No clubbing or cyanosis. IMPRESSION: Acute kidney injury. Continue sustained low-efficiency dialysis today with 4-K bath, 27-bicarbonate, with a goal of 3 to 4 L ultrafiltration. Chest x-ray again has opacity on the left consistent with atelectasis. Defer to Pulmonary. cc: MD Hayden Lui MD
[2018-05-06] MEDS ORDERED: VANCOMYCIN 1 GM/NS 1 GM/250 ML IVPB IV ONE (17:00)
[2018-05-06] MEDS: PROTONIX IV SCH (20:47)
[2018-05-07] MEDS: DIPRIVAN 1% 1,000 MG/100 ML BOTTLE IV SCH ×5 (03:24→23:32)
[2018-05-07] MEDS: ZOSYN 2.25 GM in NS 50 ML IV SCH ×3 (03:26→20:56)
[2018-05-07] MEDS: DUONEB (A & A) INH SCH ×6 (03:37→23:40)
[2018-05-07 05:07] LABS: HEMATOCRIT 27.2 % (42.0-52.0); HEMOGLOBIN 8.3 g/dL (14.0-18.0); MCH 24.6 PG (27-31); MCHC 30.5 g/dL (33-37); MCV 80.7 FL (81-99); MPV 10.8 FL (7.4-10.4); RBC 3.37 XMIL (4.7-6.1); RDW 17.7 % (11.5-14.5); WBC 6.55 X1000 (4.8-10.8)
[2018-05-07 05:25] LABS: ALB/GLOB RATIO 0.5; ALBUMIN 2.1 g/dL (3.5-5.0); CALCIUM 8.1 mg/dL (8.8-10.2); CREATININE 2.4 mg/dL (0.7-1.2); PHOSPHORUS 5.2 mg/dL (2.7-4.5); POTASSIUM 4.8 mmol/L (3.5-5.1); TOTAL BILIRUBIN 0.52 mg/dL (0.20-1.00); TOTAL PROTEIN 6.4 g/dL (6.3-8.3)
[2018-05-07 05:30] LABS: ALLEN TEST YES; BE 0.1 mmoll (-3.0-3.0); BLOOD TYPE ARTERIAL; METHB 0.5 % (0.0-1.5); MODALITY VENTILATOR; O2(CT) 7.2 mL/dL (15.0-23.0); PCO2(98.6) 38 mmHg (35-45); PO2(98.6) 111 mmHg (60-100); SAMPLE BLOOD; SAO2 98.1 % (95.0-100.0); SRATE 12 BPM; THB 5.1 g/dL (11.5-17.4); TVOL 800 mL; pH(98.6) 7.42 (7.35-7.45)
[2018-05-07] MEDS: HUMALOG SUBQ SCH ×4 (06:20→20:59)
--- NOTE | 2018-05-07 07:28 | Diag Imaging Result Doc PS360 ---
EXAM: CHEST-PORTABLE 05/07/2018 HISTORY: respiratory failure TECHNIQUE: AP portable at 0436 COMMENT: There is marked improvement with regard to the atelectasis in the left upper lobe. There is still opacification of the left base and hazy pulmonary edema in the parahilar region of the right lung. The endotracheal tube remains with its tip at the thoracic inlet and the NG tube passes below the diaphragm. IMPRESSION: Pulmonary edema and/or pneumonia. Improved atelectasis in the left upper lobe. Electronically signed by Terry Díaz 05/07/2018 7:26 AM
[2018-05-07] MEDS: APRESOLINE PO SCH ×3 (08:06→16:18)
[2018-05-07] MEDS: MUCOMYST 20% INH SCH ×2 (08:06→19:40)
[2018-05-07] MEDS: NORVASC PO SCH (08:07)
[2018-05-07] MEDS: ZEBETA PO SCH (08:07)
[2018-05-07] MEDS: CELEXA PO SCH (08:10)
[2018-05-07] MEDS: SINGULAIR PO SCH (08:10)
[2018-05-07] MEDS: LOVENOX SUBQ SCH (08:10)
[2018-05-07] MEDS: ASPIRIN PO SCH (08:11)
[2018-05-07] MEDS: HYDROPHOR OINTMENT TOP SCH ×2 (08:12→20:56)
[2018-05-07] MEDS: LOTRISONE CREAM TOP SCH ×2 (08:13→20:57)
[2018-05-07 10:33] LABS: HEPATITIS PROFILE ACUTE SEE COMMENTS
--- NOTE | 2018-05-07 12:50 | PROGRESS NOTE ---
DATE: 05/07/2018 SUBJECTIVE: The patient is asleep on the ventilator. OBJECTIVE: Vital Signs: Blood pressure 116/64, respirations 15, pulse 55, temperature 97.2 degrees core temperature. Sputum has grown out some yeast. HEENT: Normocephalic. Lungs: Dull, especially in the left base. Sounds better in the left upper lobe than it did yesterday. Heart: Regular rate and rhythm without murmurs, gallops, friction rubs at this time. Abdomen: Soft. Active bowel sounds. No organomegaly or tenderness. Neurological: Exam hard to methods analyst at this point as he is on the ventilator. IMAGING: Chest x-ray also shows clearing of the opacification of left upper lobe, but continued opacification of left lower lobe. LABORATORY: White count 6550, hemoglobin 8.3, hematocrit 27.2, blood gas is 7.42, pCO2 of 38, PO2 of 111, creatinine is 2.4. BUN is 25. ASSESSMENT: 1. Respiratory arrest. 2. Renal failure. 3. Cirrhosis. 4. Diastolic heart failure. 5. Pneumonia. 6. Yeast in sputum. We will place him on diflucan. cc: MD Hayden Larios Jr, MD
[2018-05-07] MEDS: DIFLUCAN 100 MG/NS 100 MG/50 ML IVPB IV SCH (13:56)
[2018-05-07] MEDS: PROTONIX IV SCH (20:56)
[2018-05-08] MEDS: DUONEB (A & A) INH SCH ×6 (03:10→23:48)
[2018-05-08 04:36] LABS: ALLEN TEST YES; BE -2.2 mmoll (-3.0-3.0); BLOOD TYPE ARTERIAL; HCO3-(ACT) 23.2 mmoll (20.0-26.0); METHB 0.6 % (0.0-1.5); O2(CT) 10.4 mL/dL (15.0-23.0); O2HB 96.5 % (95.0-99.0); PCO2(98.6) 35 mmHg (35-45); PO2(98.6) 108 mmHg (60-100); SAMPLE BLOOD; SAO2 97.6 % (95.0-100.0); SRATE 12 BPM; THB 7.5 g/dL (11.5-17.4); TVOL 800 mL; pH(98.6) 7.41 (7.35-7.45)
[2018-05-08 04:37] LABS: MODALITY VENTILATOR
[2018-05-08] MEDS: ZOSYN 2.25 GM in NS 50 ML IV SCH ×3 (04:43→19:50)
[2018-05-08] MEDS: DIPRIVAN 1% 1,000 MG/100 ML BOTTLE IV SCH ×6 (04:44→22:20)
[2018-05-08 05:28] LABS: HEMOGLOBIN 8.6 g/dL (14.0-18.0); MCH 24.7 PG (27-31); MCHC 30.7 g/dL (33-37); MCV 80.5 FL (81-99); MPV 10.6 FL (7.4-10.4); RBC 3.48 XMIL (4.7-6.1); RDW 18.2 % (11.5-14.5); WBC 6.95 X1000 (4.8-10.8)
[2018-05-08 05:49] LABS: ALBUMIN 2.5 g/dL (3.5-5.0); CALCIUM 8.8 mg/dL (8.8-10.2); CREATININE 3.1 mg/dL (0.7-1.2); PHOSPHORUS 6.6 mg/dL (2.7-4.5); POTASSIUM 5.1 mmol/L (3.5-5.1)
[2018-05-08 05:52] LABS: ALB/GLOB RATIO 0.5; ALBUMIN 2.3 g/dL (3.5-5.0); CALCIUM 8.8 mg/dL (8.8-10.2); CREATININE 3.2 mg/dL (0.7-1.2); TOTAL BILIRUBIN 0.45 mg/dL (0.20-1.00); TOTAL PROTEIN 6.6 g/dL (6.3-8.3)
[2018-05-08] MEDS: HUMALOG SUBQ SCH ×4 (06:07→20:54)
--- NOTE | 2018-05-08 06:12 | Diag Imaging Result Doc PS360 ---
EXAM: CHEST-PORTABLE HISTORY: respiratory failure TECHNIQUE: Portable chest single view COMPARISON: 05/07/2018 FINDINGS: No change in the endotracheal tube or nasogastric tube. The heart is not enlarged. Pulmonary edema remains. There is a [id number] sized left pleural effusion with basilar atelectasis. The overall appearance is similar to the prior study. IMPRESSION: No interval improvement. A chest abdomen film is suggested to determine the location of the nasogastric tube to ensure it is not coiled back into the esophagus. Electronically signed by Bobo Jennings 05/08/2018 6:10 AM
[2018-05-08] MEDS ORDERED: NS 2,000 ML MISC PRN (07:06)
--- NOTE | 2018-05-08 07:10 | PROGRESS NOTE ---
DATE: 05/08/2018 SUBJECTIVE: Mr. Norton is with respiratory failure and on ventilator. Patient had possible aspiration pneumonia, left pleural effusion, acute on chronic kidney disease, diabetes mellitus, cirrhosis of the liver, tolerating vent well. Patient is getting hemodialysis, not able to give any history. OBJECTIVE: Vital signs: Blood pressure 112/84, pulse 73, respirations 20. Temperature 100.2 degrees. Lungs: Decreased air entry both bases. CVS: S1 and S2 heard. Abdomen: Soft, globular. Bowel sounds present. Extremities: Patient does have callosity on the feet. 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 LABORATORY DATA DONE TODAY: Hemoglobin 8.6, hematocrit 28, WBC count 6.95, platelet 199,000. Blood gas: pH 7.41, pCO2 35, pO2 was 108. This was done on FiO2 of 40% on PEEP of 5. BUN 36, creatinine 3.1. Hepatitis panel was negative. CONSIDERATION: 1. Respiratory failure on ventilatory support. 2. Possible aspiration pneumonia. 3. Left pleural effusion. 4. Diabetes mellitus. 5. Acute on chronic kidney disease on hemodialysis. PLAN: Overall prognosis fair to guarded. I did discuss with his on telephone on Tuesday, and she is aware. We will continue current treatment and close observation. cc: Hayden Alejandre MD
[2018-05-08] MEDS: NORVASC PO SCH (08:24)
[2018-05-08] MEDS: MUCOMYST 20% INH SCH ×2 (08:29→19:48)
--- NOTE | 2018-05-08 08:30 | Diag Imaging Result Doc PS360 ---
EXAM: CHEST/ABD TUBE PLACEMENT HISTORY: check NGT placement TECHNIQUE: Portable chest abdomen COMPARISON: 5:31 AM FINDINGS: Nasogastric tube overlies the esophagus and stomach. This appears to be in good position. Electronically signed by Bobo Jennings 05/08/2018 8:28 AM
[2018-05-08] MEDS: APRESOLINE PO SCH ×3 (08:52→16:24)
[2018-05-08] MEDS: LOVENOX SUBQ SCH (08:52)
[2018-05-08] MEDS: TYLENOL PO PRN (08:53)
[2018-05-08] MEDS: CELEXA PO SCH (08:53)
[2018-05-08] MEDS: ASPIRIN PO SCH (08:53)
[2018-05-08] MEDS: ZEBETA PO SCH (08:53)
[2018-05-08] MEDS: SINGULAIR PO SCH (08:53)
[2018-05-08] MEDS: HYDROPHOR OINTMENT TOP SCH ×2 (08:54→20:59)
[2018-05-08] MEDS: LOTRISONE CREAM TOP SCH ×2 (08:54→20:59)
--- NOTE | 2018-05-08 11:27 | PULMONOLOGY PROGRESS NOTE ---
DATE: 05/08/2018 SUBJECTIVE: Patient is sedated but is responsive. He is currently on hemodialysis. OBJECTIVE: Vital Signs: BP 126/54, heart rate 72, respiratory rate 12. Oxygen saturation 95% on mechanical ventilation. Maximum temperature in the last 24 hours of 100.2 degrees. HEENT: Pupils are equal and reactive. Oropharynx appears clear. Neck: Supple. Chest: Reveals decreased breath sounds, left base. Cardiac exam: S1-S2. Abdomen: Obese and soft. Extremities: Reveal decreased peripheral edema. LABORATORIES: Chest x-ray reveals increased vascular markings. Small pleural effusion and atelectasis at the left base. No change consultant the last 24 hours. Arterial blood gas, pH 7.41, pCO2 of 35, pO2 of 108. White blood count 6.95, hemoglobin 8.6, platelet count 199,000. Sodium 136, potassium 5.1, chloride 101, bicarbonate 20. BUN 36, creatinine 3.1. IMPRESSION: A 73-year-old with: 1. Morbid obesity. 2. Diastolic heart failure. 3. Cor pulmonale. 4. Fluid overload. 5. Acute hypoxemic respiratory failure. 6. Acute renal failure. He remains on mechanical ventilation. His rapid shallow breathing index remains over 100. RECOMMENDATIONS: 1. Continue full ventilatory support. We will discontinue PEEP because this will make it difficult to dialyze extra fluid and to extubate. 2. Tube feeding as tolerated. 3. Continue bronchodilators and mucolytics. 4. Continue current antibiotic regimen. Time spent in critical care management: 30+ minutes cc: MD Hayden Epstein MD MTDD
--- NOTE | 2018-05-08 11:33 | EKG Report ---
Test Performed on : 05/06/2018 00:18:56 AM Test Reason : CCU. No order in [place] Blood Pressure : / mmHG Vent. Rate : 079 BPM Atrial Rate : 074 BPM P-R Int : 400 ms QRS Dur : 096 ms QT Int : 476 ms P-R-T Axes : 000 039 078 degrees QTc Int : 545 ms Sinus rhythm. with 1st degree AV block. Low voltage QRS Incomplete right bundle branch block Nonspecific T wave abnormality Prolonged QT Abnormal ECG When compared with ECG of 30-APR-2018 22:12, sinus rhythm has returned, non-sustained V-tach is no longer seen. QRS axis is now normal, suspect lead reversal on 30 APR 2018(lateral infarct no longer suggested) Confirmed by Leona PILLAI, Floyd Blandon ([id number]) on 05/08/2018 9:25:47 PM
--- NOTE | 2018-05-08 13:04 | NEPHROLOGY PROGRESS NOTE ---
DATE: 05/08/2018 TIME SEEN: 0725. SUBJECTIVE: Mr. Norton remains sedated and ventilator dependent. OBJECTIVE: His most recent vital signs. His last temperature during the night was 100.2, blood pressure 120/55, heart rate 73, respirations 14. He remains on 40% FiO2. His last recorded saturation is 95%. He has had 1897 in with only 300 mL out to Kessler catheter. LABS: Sodium is 137, potassium 5, chloride 102, CO2 of 20, BUN 37, creatinine 3.2, glucose 110. Anion gap of 15, calcium 8.8, phosphorus 6.6, albumin 2.5. White count 6.95, hemoglobin 8.6, hematocrit 28, platelet count 199. ABGs: pH 7.41, CO2 of 35, pO2 of 108, bicarb 23.2 on 40% FiO2. PHYSICAL EXAMINATION: General: This is a 73-year-old white male. He is in no acute distress. He remains ventilator dependent with sedation, unresponsive. HEENT: Normocephalic, atraumatic. Conjunctiva is pale pink. Mucous membranes are dry. Oral ET tube is in place. Neck: Supple. Unable to determine JVD. Cardiovascular: Regular rate and rhythm. Unable to determine murmur or gallop with a previous systolic murmur present. Lungs: He does have fine, scattered crackles. Diminished breath sounds to the bases anteriorly. Remains on O2 support. Abdomen: Slightly distended. Positive bowel sounds. Genitourinary: Not inspected. Minimal urine out to Kessler catheter. Extremities: Continues with 3+ edema. No clubbing or cyanosis. ASSESSMENT AND PLAN: 1. Acute kidney injury. The patient is requiring dialysis support secondary to fluid volume overload. We will place him on SLED today. He will be on a 4 K bath 27 bicarb with a goal of 4 to 6 L of ultrafiltration if tolerated. 2. Electrolytes, acid-base balance. These are acceptable. 3. Anemia. This is low but acceptable. 4. Respiratory failure. We will defer to Pulmonary. I would like to thank you for allowing us to follow with this patient. Dictated by CAROLINE Charles for Benito Watson MD Face to face encounter, data reviewed, discussed with Ever [place] on 05/08/18. I agree with the above assessment and plan of care. cc: CAROLINE Charles MD Bharat K. Vakharia, MD MTDD
[2018-05-08] MEDS: DIFLUCAN 100 MG/NS 100 MG/50 ML IVPB IV SCH (13:08)
--- NOTE | 2018-05-08 16:24 | CARDIOLOGY PROGRESS NOTE ---
DATE: 05/08/2018 SUBJECTIVE: Mr. Norton is sedated, on the ventilator. OBJECTIVE: Vital Signs: His most recent temperature was 99.0 degrees. He is currently on dialysis. Heart rate in the 60s. Blood pressure 107/47. General: He is in no acute distress, ill-appearing. Cardiovascular: He sounds to be in a regular rate and rhythm. He has no obvious murmurs. He has no S3. He has lower extremity edema and skin changes consistent with lymphedema type changes. Chest: Exam is difficult. Mechanical breath sounds are heard throughout his lung vance. Abdomen: Soft, nontender. Did not hear any obvious bowel sounds. PERTINENT DATA: His white count is 6.9. His hematocrit is 28. His platelet count is 199,000. His sodium is 136, potassium 5.1, BUN 36, creatinine 3.1. ASSESSMENT: Mr. Norton is a 73-year-old gentleman with respiratory failure. PLAN: I have no acute recommendations from a cardiovascular standpoint. He seems to be maintaining sinus rhythm. Unfortunately, he has not recovered renal function yet and continues on dialysis. In addition, he continues on the ventilator. cc: MD Hayden Levine MD
[2018-05-08] MEDS ORDERED: VANCOMYCIN 1 GM/NS 1 GM/250 ML IVPB IV ONE (17:00)
[2018-05-08] MEDS: PROTONIX IV SCH (20:58)
[2018-05-09] MEDS: DIPRIVAN 1% 1,000 MG/100 ML BOTTLE IV SCH ×3 (00:57→06:21)
[2018-05-09] MEDS: DUONEB (A & A) INH SCH ×6 (03:48→22:30)
[2018-05-09] MEDS: ZOSYN 2.25 GM in NS 50 ML IV SCH ×3 (04:39→20:40)
[2018-05-09 05:32] LABS: HEMATOCRIT 28.7 % (42.0-52.0); HEMOGLOBIN 8.7 g/dL (14.0-18.0); MCH 24.8 PG (27-31); MCHC 30.3 g/dL (33-37); MCV 81.8 FL (81-99); MPV 10.4 FL (7.4-10.4); RBC 3.51 XMIL (4.7-6.1); RDW 18.1 % (11.5-14.5); WBC 7.1 X1000 (4.8-10.8)
[2018-05-09 05:37] LABS: ALLEN TEST YES; BLOOD TYPE ARTERIAL; HCO3-(ACT) 22.6 mmoll (20.0-26.0); METHB 0.6 % (0.0-1.5); O2(CT) 14.4 mL/dL (15.0-23.0); O2HB 96.7 % (95.0-99.0); PCO2(98.6) 38 mmHg (35-45); PO2(98.6) 123 mmHg (60-100); SAMPLE BLOOD; SRATE 8 BPM; THB 10.4 g/dL (11.5-17.4); TVOL 800 mL; pH(98.6) 7.37 (7.35-7.45)
[2018-05-09 05:39] LABS: MODALITY VENTILATOR
[2018-05-09 06:04] LABS: ALB/GLOB RATIO 0.6; ALBUMIN 2.6 g/dL (3.5-5.0); CREATININE 2.2 mg/dL (0.7-1.2); TOTAL BILIRUBIN 0.49 mg/dL (0.20-1.00); TOTAL PROTEIN 7.1 g/dL (6.3-8.3)
[2018-05-09] MEDS: HUMALOG SUBQ SCH ×4 (06:21→20:24)
[2018-05-09] MEDS ORDERED: NS 2,000 ML MISC PRN ×2 (06:54→07:34)
[2018-05-09] MEDS ORDERED: HEPARIN IV PRN (06:54)
[2018-05-09] MEDS ORDERED: TIGHT: 0.2 ML/HR FOR DIALYSIS MISC PRN (06:54)
--- NOTE | 2018-05-09 07:27 | Diag Imaging Result Doc PS360 ---
EXAM: CHEST-PORTABLE 05/09/2018 HISTORY: respiratory failure TECHNIQUE: AP portable at 0521 COMMENT: There is an endotracheal tube with its tip at the thoracic inlet and an NG tube which passes below the diaphragm. There is a double-lumen right internal jugular central venous catheter with its tip in the superior vena cava. There is cardiomegaly. There is opacification of the retrocardiac portion of the left lower lobe. Considering differences in technique there has been little change since the previous study of 05/08/2018 and compared to the previous study of that date at 0531 there has been some slight improvement in the opacities in the medial right base. IMPRESSION: Cardiomegaly. Slightly improved pulmonary edema versus pneumonia. Electronically signed by Terry Díaz 05/09/2018 7:25 AM
--- NOTE | 2018-05-09 07:49 | PROGRESS NOTE ---
DATE: 05/09/2018 SUBJECTIVE: Mr. Norton is on the ventilator. Nurse reported some purulent drainage from his penis, some scrotal dermatitis. The patient is on vancomycin and Zosyn, which we will continue. No high-grade fever or chills. Tolerating feeding well. OBJECTIVE: Vital Signs: Noted. Neck: Supple. Lungs: Decreased air entry, left lower lung field. Cardiovascular: S1 and S2 heard. Abdomen: Soft, globular. Bowel sounds present. Extremities: Leg swelling improving. 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 Laboratory Data: Done today, WBC count 7.1, hemoglobin 8.7, hematocrit 28.7, platelet count 212,000. Blood gas results reviewed. Potassium was 5, sodium 135. The patient does have purulent drainage from the penis. We are going to send for culture and sensitivity. Currently, the patient is covered with vancomycin and Zosyn, which we will continue. Chest x-ray, official result is pending. PLAN: Plan is to continue current treatment. Close observation. Renal function improving. We are going to continue dialysis. cc: Hayden Alejandre MD
[2018-05-09] MEDS: MUCOMYST 20% INH SCH ×2 (07:52→19:00)
[2018-05-09] MEDS: LOVENOX SUBQ SCH (08:40)
[2018-05-09] MEDS: ASPIRIN PO SCH (08:40)
[2018-05-09] MEDS: ZEBETA PO SCH (08:40)
[2018-05-09] MEDS: CELEXA PO SCH (08:40)
[2018-05-09] MEDS: NORVASC PO SCH (08:40)
[2018-05-09] MEDS: SINGULAIR PO SCH (08:40)
[2018-05-09] MEDS: APRESOLINE PO SCH ×3 (08:40→20:50)
[2018-05-09] MEDS: HYDROPHOR OINTMENT TOP SCH ×2 (09:27→21:00)
[2018-05-09] MEDS: LOTRISONE CREAM TOP SCH ×2 (09:28→21:00)
[2018-05-09 10:11] LABS: ALLEN TEST YES; BE -1.5 mmoll (-3.0-3.0); BLOOD TYPE ARTERIAL; HCO3-(ACT) 23.8 mmoll (20.0-26.0); METHB 0.6 % (0.0-1.5); O2HB 95.6 % (95.0-99.0); PCO2(98.6) 41 mmHg (35-45); PO2(98.6) 83 mmHg (60-100); SAMPLE BLOOD; SAO2 96.7 % (95.0-100.0); THB 8.8 g/dL (11.5-17.4); pH(98.6) 7.37 (7.35-7.45)
[2018-05-09 10:12] LABS: MODALITY VENTILATOR
--- NOTE | 2018-05-09 12:15 | NEPHROLOGY PROGRESS NOTE ---
DATE: 05/09/2018 TIME SEEN: 0725. SUBJECTIVE: Mr. Norton is resting quietly in bed. He is ventilator dependent and sedated. OBJECTIVE: Vitals: His most recent vital signs, temperature 98 degrees, blood pressure 119/59, heart rate 67, respirations are 17. He is on 40% FiO2. Last recorded saturation 95%. General: This is a 73-year-old white male. He is currently resting quietly, ventilator dependent with sedation. HEENT: Normocephalic, atraumatic. Unable to determine JVD. Cardiovascular: He is regular rate and rhythm, unable to determine murmur or gallop with a previous systolic murmur present. Lungs: Fine, scattered crackles. Diminished breath sounds. Ventilatory support. Abdomen: Obese, slightly distended. Positive bowel sounds. Hypoactive. Genitourinary: Not inspected. Minimal urine out to Kessler catheter with dialysis assist. Extremities: He continues with 3+ edema into the upper hip region. No clubbing or cyanosis. Neurological : As mentioned above. INPUT AND OUTPUT: He has had 2282 in, 6225 out with 6 L on dialysis. LABORATORY DATA: Sodium 135, potassium 5, chloride 102, CO2 21, BUN 21, creatinine 2.2, glucose 128, anion gap of 12, calcium 9, albumin 2.6. White count 7.1, hemoglobin 8.7, hematocrit 28.7, platelet count 212,000. ABGs: PH 7.37, bicarb 38, PO2 123, CO2 22.6 on 40%. ASSESSMENT AND PLAN: 1. Acute kidney injury. Patient continues to require dialysis support secondary to fluid volume overload. We will place him on SLED today. He is to be on a 4K bath. We will dialyze him for 8 hours, 27 bicarbonate. We will attempt to pull 4 to 6 L of ultrafiltration as tolerated. 2. Electrolytes with mild hyperkalemia, correction on dialysis. 3. Acid-base balance, again with correction on dialysis. 4. Anemia. This remains low, but stable. 5. Respiratory failure, followed by Pulmonary. I would to thank you for allowing us to follow with this patient. Dictated by CAROLINE Charles for Benito Watson MD Face to face encounter, data reviewed, discussed with Ever [place] on 05/09/18. I agree with the above assessment and plan of care. carmine Reaves#: [id number] cc: CAROLINE Charles MD Bharat K. Vakharia, MD MTDD
[2018-05-09] MEDS: DIFLUCAN 100 MG/NS 100 MG/50 ML IVPB IV SCH ×2 (13:57→20:41)
[2018-05-09] MEDS ORDERED: VANCOMYCIN 1 GM/NS 1 GM/250 ML IVPB IV ONE (17:00)
[2018-05-09] MEDS: PROTONIX IV SCH (20:40)
[2018-05-10] MEDS: ZOSYN 2.25 GM in NS 50 ML IV SCH ×3 (03:28→20:42)
[2018-05-10] MEDS: DUONEB (A & A) INH SCH ×6 (03:31→23:16)
--- NOTE | 2018-05-10 04:30 | PULMONOLOGY PROGRESS NOTE ---
DATE: 05/09/2018 SUBJECTIVE: The patient has been placed on a spontaneous breathing trial. He does not have increased work of breathing, despite being off propofol. He does not follow commands. He currently is on hemodialysis. OBJECTIVE: Vital Signs: The patient has been afebrile for the last 24 hours. Blood pressure 120/54, heart rate 71, respiratory rate 15, oxygen saturation 94%. HEENT: Pupils are equal. The patient will not track the examiner. Oropharynx appears clear, but dry. Neck: Supple. Chest: Reveals good air entry bilaterally, with prolonged expiratory phase and with bilateral rhonchi. Cardiac: S1-S2. Abdomen: Obese and soft. Extremities: Reveal chronic edema. LABORATORIES: Arterial blood gas reveals pH 7.37, pCO2 of 38, PO2 of 123. White blood count 7.10, hemoglobin 8.7, platelet count 212,000. Sodium 135, potassium 5.0, chloride 102, bicarbonate 21, BUN 21, creatinine 2.2. Chest x-ray reveals cardiomegaly, with slight decreased pulmonary edema. IMPRESSION: A 73-year-old with acute hypoxemic respiratory failure, cor pulmonale, morbid obesity, diastolic heart failure, fluid overload, with acute renal failure. The patient has altered mental status/delirium, which continues at present, despite holding Diprivan. His pulmonary status is improving, but his mental status will cause delay in extubation. RECOMMENDATION: 1. Continue to hold propofol and avoid sedation if tolerated. 2. Re-initiate spontaneous breathing trial tomorrow morning. 3. Continue tube feeds as tolerated. 4. Continue antibiotics, bronchodilators, and mucolytics. TIME SPENT IN CRITICAL CARE: 30+ minutes. cc: MD Hayden Epstein MD
[2018-05-10 05:34] LABS: ALLEN TEST YES; BE -1.7 mmoll (-3.0-3.0); BLOOD TYPE ARTERIAL; HCO3-(ACT) 23.6 mmoll (20.0-26.0); METHB 0.5 % (0.0-1.5); O2(CT) 11.8 mL/dL (15.0-23.0); O2HB 95.5 % (95.0-99.0); PCO2(98.6) 37 mmHg (35-45); PO2(98.6) 84 mmHg (60-100); SAMPLE BLOOD; SAO2 96.6 % (95.0-100.0); SRATE 8 BPM; THB 8.7 g/dL (11.5-17.4); TVOL 800 mL
[2018-05-10 05:35] LABS: MODALITY VENTILATOR
[2018-05-10 06:18] LABS: HEMATOCRIT 28.9 % (42.0-52.0); HEMOGLOBIN 8.7 g/dL (14.0-18.0); MCH 24.4 PG (27-31); MCHC 30.1 g/dL (33-37); MCV 81.2 FL (81-99); MPV 10.5 FL (7.4-10.4); RBC 3.56 XMIL (4.7-6.1); RDW 17.8 % (11.5-14.5); WBC 7.95 X1000 (4.8-10.8)
[2018-05-10] MEDS: TYLENOL PO PRN (06:31)
[2018-05-10] MEDS ORDERED: NS 2,000 ML MISC PRN (06:44)
[2018-05-10 06:50] LABS: ALB/GLOB RATIO 0.6; ALBUMIN 2.7 g/dL (3.5-5.0); CALCIUM 9.1 mg/dL (8.8-10.2); POTASSIUM 4.7 mmol/L (3.5-5.1); TOTAL BILIRUBIN 0.7 mg/dL (0.20-1.00); TOTAL PROTEIN 7.2 g/dL (6.3-8.3)
--- NOTE | 2018-05-10 06:59 | PROGRESS NOTE ---
DATE: 05/10/2018 SUBJECTIVELY: Mr. Norton is placed back on ventilatory support. The patient was on spontaneous breathing trial, but he was restless, and we had to put him back on ventilatory support. Plan is to do weaning trial again today. The patient is still getting hemodialysis. Leg swelling improving. Yesterday, he was trying to pull his endotracheal tube, and we had to put soft restraint. The patient is tolerating NG tube feeding well. No diarrhea. No typical chest pain. The patient is not able to give any history. OBJECTIVE: Vital signs: Noted. Neck: Supple. No JVD. Lungs: Decreased air entry, left lower lung field. CVS: S1 and S2 heard. Abdomen: Soft, globular. Bowel sounds present. Extremities: Swelling is improving. 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 LABORATORY DATA: Blood work done today. WBC count 7.95, hemoglobin 8.7, hematocrit 28.9, platelet count 217,000. Blood gas: pH 7.4, pCO2 37, pO2 was 84. Chest x-ray, done today, result is pending. PLAN: Plan is to continue current treatment. Close observation. I appreciate all sales enablement consultant's help. Overall prognosis fair to guarded. Family is aware of the prognosis. cc: Hayden Alejandre MD
[2018-05-10] MEDS: HUMALOG SUBQ SCH ×4 (07:20→20:42)
--- NOTE | 2018-05-10 07:43 | Diag Imaging Result Doc PS360 ---
EXAM: CHEST-PORTABLE INDICATION: respiratory failure TECHNIQUE: One view COMPARISON: 05/09/2018 FINDINGS: The patient is rotated toward the left. Support tubes and lines are in stable position. There has been interval complete opacification of the left hemithorax suggesting collapse and/or a large effusion. Consolidation at the medial right lung base is approximately stable. Cardiomegaly is again noted. IMPRESSION: Interval complete opacification of the left thorax. Electronically signed by Tremaine Barajas 05/10/2018 7:40 AM
[2018-05-10] MEDS: MUCOMYST 20% INH SCH ×2 (08:26→19:57)
[2018-05-10] MEDS: LOVENOX SUBQ SCH (08:31)
[2018-05-10] MEDS: NORVASC PO SCH (08:32)
[2018-05-10] MEDS: ASPIRIN PO SCH (08:32)
[2018-05-10] MEDS: LOTRISONE CREAM TOP SCH ×2 (08:32→20:43)
[2018-05-10] MEDS: ZEBETA PO SCH (08:32)
[2018-05-10] MEDS: SINGULAIR PO SCH (08:32)
[2018-05-10] MEDS: CELEXA PO SCH (08:32)
[2018-05-10] MEDS: HYDROPHOR OINTMENT TOP SCH ×2 (08:32→20:43)
[2018-05-10] MEDS: APRESOLINE PO SCH ×3 (08:32→17:00)
[2018-05-10 09:23] LABS: ALLEN TEST YES; BE -2.2 mmoll (-3.0-3.0); BLOOD TYPE ARTERIAL; HCO3-(ACT) 23.2 mmoll (20.0-26.0); METHB 0.5 % (0.0-1.5); O2(CT) 10.1 mL/dL (15.0-23.0); PCO2(98.6) 36 mmHg (35-45); PO2(98.6) 82 mmHg (60-100); SAMPLE BLOOD; SAO2 97.1 % (95.0-100.0); THB 7.4 g/dL (11.5-17.4)
[2018-05-10 09:24] LABS: MODALITY VENTILATOR
--- NOTE | 2018-05-10 09:53 | NEPHROLOGY PROGRESS NOTE ---
DATE: 05/10/2018 TIME SEEN: 0735 SUBJECTIVE: Mr. Norton remains unresponsive. He is ventilator-dependent. He is on a sedation vacation at this time. VITAL SIGNS: Highest temperature during the night was 100.2. Blood pressure 162/62, heart rate 82, respirations 18. He is currently on 40% FiO2. Last recorded saturation 94% . He has had 824 in, 6098 out with 5.9 L on dialysis. LABORATORY DATA: Sodium 135, potassium 4.7, chloride 103, CO2 21, BUN 19, creatinine 2, glucose 114. Anion gap of 11, calcium 9.1, phosphorus 1, albumin 2.7. White count 7.95 , hemoglobin 8.7, hematocrit 28.9 with a platelet count of 217,000. ABGs: pH 7.4, CO2 37, PO2 84 , bicarb 23.1, plasma lactate of 1.6 on 40%. PHYSICAL EXAMINATION: General: This is a 73-year-old, elderly male who is currently resting quietly in bed. He appears chronically ill. No acute distress, ventilator- dependent. Skin: Warm and dry. HEENT: Normocephalic, atraumatic. Conjunctivae pale. He has SALONI. Mucous membranes are moist with oral ET tube in place. Neck: Supple. Trachea midline. Unable to determine JVD. Cardiovascular: Regular rate and rhythm with a possible systolic murmur today. Lungs: Fine scattered rhonchi, ventilator-dependent. Abdomen: Obese, slightly distended, nontender. Hypoactive bowel sounds present. Genitourinary: Not inspected. Minimal void with Kessler catheter in place. Dialysis assist. Extremities: Continues with 3+ edema up from the lower extremities into the mid hip region. No clubbing or cyanosis. Neurological: As mentioned above. ASSESSMENT AND PLAN: 1. Acute kidney injury. The patient has minimal urine output requiring hemodialysis assistance. We will place him on sustained low efficiency dialysis today. He is to be on a 4-K bath. We will dialyze him for 8 hours, 27-bicarb. We will attempt to pull 4 L of ultrafiltration as tolerated. 2. Electrolytes and acid-base balance. These have been corrected with correction on dialysis continued. 3. Anemia. This remains low, but stable. 4. Respiratory status. This is followed by Pulmonary. Remains intubated with ventilatory assistance. I would to thank you for allowing us to follow with this patient. Dictated by CAROLINE Charles for Benito Watson MD Face to face encounter, data reviewed, discussed with Ever [place] on 05/10/17. I agree with the above assessment and plan of care. cc: CAROLINE Charles MD Bharat K. Vakharia, MD [facility]ITAL[facility]
--- NOTE | 2018-05-10 10:17 | PULMONOLOGY PROGRESS NOTE ---
DATE: 05/10/2018 SUBJECTIVE: The patient is a little more awake this morning. He will not follow commands. OBJECTIVE: Vital signs: Patient's maximum temperature in the last 24 hours was 100.4 degrees. Blood pressure 142/60, heart rate 79, respiratory rate 15, oxygen saturation 94%. HEENT: Pupils are equal and reactive. Oropharynx is clear. Neck: Supple. Chest: Reveals diminished breath sounds left base. Cardiac: S1, S2. Abdomen: Obese and soft. Extremities: Without edema. LABORATORIES: Chest x-ray reveals recurrent atelectasis in the left lung. Arterial blood gas, pH 7.40, pCO2 of 36, PO2 of 82. White blood count 7.95, hemoglobin 8.7, platelet count 117,000. IMPRESSION: This is a 73-year-old with acute hypoxemic respiratory failure, cor pulmonale, morbid obesity, diastolic heart failure, acute renal failure, with fluctuating complete atelectasis of the left lung. The patient's mental status has markedly improved compared to yesterday but not adequate for extubation. In addition, he has developed recurrent atelectasis in the left lung. RECOMMENDATION: 1. Reinitiate pressure released volume control mode of ventilation and discontinue pressure support. 2. Continue bronchial hygiene. 3. We will use p.r.n. morphine for comfort. 4. Prognosis is guarded. CRITICAL CARE TIME: Time spent in critical care 30+ minutes. cc: MD Hayden Epstein MD
[2018-05-10] MEDS ORDERED: HEPARIN IV PRN (10:18)
[2018-05-10] MEDS: MORPHINE IV PRN ×2 (13:29→22:23)
[2018-05-10] MEDS ORDERED: VANCOMYCIN 1 GM/NS 1 GM/250 ML IVPB IV ONE (17:00)
[2018-05-10] MEDS: DIFLUCAN 100 MG/NS 100 MG/50 ML IVPB IV SCH (17:33)
[2018-05-10] MEDS: PROTONIX IV SCH (20:42)
[2018-05-11] MEDS: MORPHINE IV PRN (02:50)
[2018-05-11] MEDS: DUONEB (A & A) INH SCH ×6 (03:51→23:02)
[2018-05-11 04:44] LABS: ALLEN TEST YES; BE -2.9 mmoll (-3.0-3.0); BLOOD TYPE ARTERIAL; HCO3-(ACT) 22.7 mmoll (20.0-26.0); PCO2(98.6) 38 mmHg (35-45); PO2(98.6) 139 mmHg (60-100); SAMPLE BLOOD; SRATE 8 BPM; TVOL 900 mL; pH(98.6) 7.37 (7.35-7.45)
[2018-05-11 04:46] LABS: MODALITY VENTILATOR
[2018-05-11 04:48] LABS: HEMATOCRIT 29.9 % (42.0-52.0); HEMOGLOBIN 8.9 g/dL (14.0-18.0); MCH 24.6 PG (27-31); MCHC 29.8 g/dL (33-37); MCV 82.6 FL (81-99); MPV 10.2 FL (7.4-10.4); RBC 3.62 XMIL (4.7-6.1); RDW 17.8 % (11.5-14.5); WBC 9.49 X1000 (4.8-10.8)
[2018-05-11] MEDS: ZOSYN 2.25 GM in NS 50 ML IV SCH ×3 (04:54→20:05)
[2018-05-11 05:24] LABS: ALB/GLOB RATIO 0.6; ALBUMIN 2.7 g/dL (3.5-5.0); CALCIUM 9.2 mg/dL (8.8-10.2); CREATININE 1.7 mg/dL (0.7-1.2); POTASSIUM 4.6 mmol/L (3.5-5.1); TOTAL BILIRUBIN 0.6 mg/dL (0.20-1.00); TOTAL PROTEIN 7.6 g/dL (6.3-8.3)
[2018-05-11] MEDS: HUMALOG SUBQ SCH ×4 (06:05→20:23)
[2018-05-11] MEDS ORDERED: TIGHT: 0.2 ML/HR FOR DIALYSIS MISC PRN (07:06)
[2018-05-11] MEDS ORDERED: HEPARIN IV PRN (07:06)
[2018-05-11] MEDS ORDERED: NS 2,000 ML MISC PRN (07:06)
--- NOTE | 2018-05-11 07:07 | PROGRESS NOTE ---
DATE: 05/11/2018 SUBJECTIVELY: Mr. Norton is doing fair. The patient is still on ventilator. No high-grade fever or chills. Tolerating feeding well. Not communicating. The patient seems to be responding, obeying simple command well. OBJECTIVE: Vital Signs: Noted. Patient remains afebrile. T-max this production weigher was 99. Neck: Supple. Lungs: Decreased air entry, left lung. Cardiovascular: S1 and S2 heard. Abdomen: Soft, globular. Bowel sounds present. Extremities: No cyanosis, clubbing. 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 Moving his legs. LABORATORY DATA DONE TODAY: Hemoglobin 8.9, hematocrit 29.9, platelet count 220,000. Blood gas results reviewed which is satisfactory. Electrolytes: BUN was 17, creatinine 1.7, potassium 4.6. Penile culture grew yeast. Chest x-ray done yesterday did reveal complete opacifications of the left lung. Patient is on Diflucan. PROBLEMS: 1. Respiratory failure. 2. Diabetes mellitus. 3. Anemia of chronic disease. 4. Acute on chronic kidney disease. The patient is on dialysis. 5. Possible aspiration pneumonia. LABS AND MEDICATION: Noted. OVERALL PROGNOSIS: Fair. PLAN: We will continue current treatment and close observation. cc: Hayden Alejandre MD
--- NOTE | 2018-05-11 07:12 | Diag Imaging Result Doc PS360 ---
EXAM: CHEST-PORTABLE 05/11/2018 HISTORY: respiratory failure TECHNIQUE: AP portable at 0522 COMMENT: There is an endotracheal tube with its tip at the thoracic inlet and an NG tube which passes below the diaphragm. The left hemithorax is completely opacified and there is some shift of the mediastinum to the left suggesting that much of this is due to atelectasis. There is some slight increased interstitial opacity on the right suggesting a degree of pulmonary edema. IMPRESSION: Mild pulmonary edema. Atelectasis and/or pneumonia throughout the left lung. The possibility of a mucous plug or other bronchial obstruction in the left mainstem bronchus is suggested. Electronically signed by Terry Díaz 05/11/2018 7:10 AM
[2018-05-11] MEDS: MUCOMYST 20% INH SCH ×2 (07:54→19:14)
[2018-05-11] MEDS: NORVASC PO SCH (08:27)
[2018-05-11] MEDS: CELEXA PO SCH (08:27)
[2018-05-11] MEDS: LOVENOX SUBQ SCH (08:27)
[2018-05-11] MEDS: APRESOLINE PO SCH ×3 (08:28→16:45)
[2018-05-11] MEDS: SINGULAIR PO SCH (08:28)
[2018-05-11] MEDS: ZEBETA PO SCH (08:28)
[2018-05-11] MEDS: ASPIRIN PO SCH (08:28)
[2018-05-11] MEDS: HYDROPHOR OINTMENT TOP SCH ×2 (09:00→20:05)
[2018-05-11] MEDS: LOTRISONE CREAM TOP SCH ×2 (09:00→20:05)
--- NOTE | 2018-05-11 09:58 | PULMONOLOGY PROGRESS NOTE ---
DATE: 05/11/2018 SUBJECTIVE: Patient opens his names to voice. He does not follow commands. OBJECTIVE: Vital signs: Maximum temperature in the last 24 hours is 99.3 degrees. HEENT: Pupils are equal and reactive. Oropharynx is clear. Neck: Supple. Chest : Reveals markedly diminished breath sounds, left base. Cardiac: S1, S2. Abdomen: Obese and soft. Extremities: Without edema. LABORATORIES: Chest x-ray reveals continued atelectasis of the left lung. Arterial blood gas: pH 7.37, pCO2 of 38, pO2 of 139. White blood count 9.49, hemoglobin 8.9, platelet count 220,000. Chemistry: Sodium 138, potassium 4.6, chloride 106, bicarbonate 20, BUN 17, creatinine 1.7, glucose 100. IMPRESSION: A 73-year-old with acute hypoxemic respiratory failure, morbid obesity, acute cor pulmonale, diastolic heart failure, acute renal failure, with fluctuating atelectasis of the left lung. It was hoped with continuous higher volumes on the ventilator, his left lung would open up. It remains atelectatic. I will ask Respiratory Therapy to begin chest physiotherapy in an attempt to re-expand this left lung. RECOMMENDATION: 1. Continue full ventilatory support. 2. Augment bronchial hygiene with chest physical therapy. 3. Continue fluid removal per hemodialysis. 4. Prognosis is guarded. Time spent in critical care management: 30+ minutes cc: MD Hayden Epstein MD MTDD
--- NOTE | 2018-05-11 14:09 | NEPHROLOGY PROGRESS NOTE ---
DATE: 05/11/2018 TIME SEEN: 0705 hours. SUBJECTIVE: Mr. Norton is currently resting quietly in bed. He is off his sedation. He remains ventilator dependent. He does open his eyes to tactile stimuli. OBJECTIVE: Vital Signs: Temperature 99 degrees, blood pressure 111/43, heart rate 55, respirations 17. He is currently on 40% FiO2. His last recorded saturation is 96%. He has had 1590 in and 6.1 liters out with 6 liters on dialysis yesterday. The patient is in a total of negative 18 liters on dialysis in the last 72 hours, negative fluid balance of 12 liters as of today. LABS: Sodium is 138, potassium 4.6, chloride 106, CO2 20. BUN 17, creatinine 1.7, glucose 100. Anion gap of 12, calcium 9.2, albumin 2.7. White count 9.49, hemoglobin 8.9, hematocrit 29.9, platelet count 220. ABGs: A pH 7.37, CO2 38, PO2 139, bicarbonate 22.7 on 40% FiO2. PHYSICAL EXAMINATION: General: This is a 73-year-old elderly male. He is resting quietly. He is in no acute distress, though he appears chronically ill. Skin: Warm and dry with ventilator dependence. HEENT: Normocephalic, atraumatic. Conjunctiva is pale. Mucous membranes are dry. Unable to determine JVD secondary to body habitus. Cardiovascular: He is irregular. He has sinus jose today, frequent PACs. No murmur or gallop. Lungs: Diminished breath sounds. Poor inspiratory effort on the ventilatory support, although he does have improved breath sounds to the left. Abdomen: Large, obese, soft, nontender. Positive bowel sounds. Genitourinary: Not inspected. Minimal urine out to Kessler catheter with dialysis assist. Extremities: Continues with 2+ to 3+ lower extremity edema. Neurological: As mentioned above. ASSESSMENT AND PLAN: 1. Acute kidney injury. The patient has had no recovery in urine output requiring daily dialysis for fluid volume control. We will place him on dialysis today. He is to dialyze for [address] him on a 2 potassium bath. He is to have 3 to 4 liters of ultrafiltration removal as tolerated. 2. Electrolytes, acid-base balance, and anemia. These all remain fairly acceptable and stable. 3. Respiratory failure. This is followed by Pulmonary. I would to thank you for allowing us to follow with this patient. Dictated by CAROLINE Charles for Benito Watson MD Face to face encounter, data reviewed, discussed with Ever Dallas on 05/11/18. I agree with the above assessment and plan of care. cc: CAROLINE Charles MD Bharat K. Vakharia, MD [facility]
[2018-05-11] MEDS: DIFLUCAN 100 MG/NS 100 MG/50 ML IVPB IV SCH (17:01)
[2018-05-11] MEDS ORDERED: VANCOMYCIN 1 GM/NS 1 GM/250 ML IVPB IV ONE (18:00)
[2018-05-11] MEDS: PROTONIX IV SCH (20:05)
[2018-05-11] MEDS: SODIUM CHLORIDE 0.9% INJ SCH (20:05)
[2018-05-11] MEDS: TYLENOL PO PRN (22:44)
[2018-05-12] MEDS: MORPHINE IV PRN (00:13)
[2018-05-12] MEDS: DUONEB (A & A) INH SCH ×6 (03:20→23:17)
[2018-05-12] MEDS: ZOSYN 2.25 GM in NS 50 ML IV SCH ×3 (04:00→22:05)
[2018-05-12 05:03] LABS: ALLEN TEST YES; BE 3.3 mmoll (-3.0-3.0); BLOOD TYPE ARTERIAL; HCO3-(ACT) 27.5 mmoll (20.0-26.0); METHB 0.7 % (0.0-1.5); MODALITY VENTILATOR; O2(CT) 13.4 mL/dL (15.0-23.0); O2HB 96.6 % (95.0-99.0); PCO2(98.6) 33 mmHg (35-45); PO2(98.6) 148 mmHg (60-100); SAMPLE BLOOD; SAO2 98.1 % (95.0-100.0); SRATE 8 BPM; THB 9.6 g/dL (11.5-17.4); TVOL 900 mL; pH(98.6) 7.51 (7.35-7.45)
[2018-05-12 05:44] LABS: HEMATOCRIT 29.9 % (42.0-52.0); HEMOGLOBIN 9.2 g/dL (14.0-18.0); MCH 24.9 PG (27-31); MCHC 30.8 g/dL (33-37); MPV 10.6 FL (7.4-10.4); RBC 3.69 XMIL (4.7-6.1); RDW 17.7 % (11.5-14.5); WBC 10.49 X1000 (4.8-10.8)
[2018-05-12 06:26] LABS: ALB/GLOB RATIO 0.6; ALBUMIN 2.8 g/dL (3.5-5.0); CALCIUM 8.7 mg/dL (8.8-10.2); CREATININE 2.1 mg/dL (0.7-1.2); POTASSIUM 3.8 mmol/L (3.5-5.1); TOTAL BILIRUBIN 0.64 mg/dL (0.20-1.00); TOTAL PROTEIN 7.8 g/dL (6.3-8.3)
[2018-05-12] MEDS: HUMALOG SUBQ SCH ×4 (06:35→22:06)
--- NOTE | 2018-05-12 06:35 | Diag Imaging Result Doc PS360 ---
EXAM: CHEST-PORTABLE HISTORY: respiratory failure TECHNIQUE: Portable chest single view COMPARISON: 05/11/2018 FINDINGS: Endotracheal and nasogastric tubes remain in good position. No change in the right jugular line. There is partial aeration of the upper left lung on the current exam. There is no longer complete opacification of the left hemithorax. Right lung remains clear. IMPRESSION: Mild interval improvement. Electronically signed by Bobo Jennings 05/12/2018 6:33 AM
--- NOTE | 2018-05-12 07:05 | PROGRESS NOTE ---
DATE: 05/12/2018 SUBJECTIVE: Mr. Norton is doing better. The patient is more alert and awake, following simple commands. Patient is still on vent. Urine output is not well at all. The patient is requiring dialysis. Chest x-ray is showed mild interval improvement. No high-grade fever or chills. The patient is tolerating feeding well through NG tube. OBJECTIVE: Vital signs: Blood pressure 151/67, pulse 79, respirations 15, temperature was 99.9. Neck: Supple. No JVD. Lungs: Decreased air entry in both bases. CVS: S1 and S2 heard. Abdomen: Soft, globular. Bowel sounds present. Extremities: Leg swelling improved. MANAGER MARITIME: Alert, awake, and answering questions fairly well. LABORATORY DATA DONE TODAY: WBC count 10.49, hemoglobin 9.2, hematocrit 29.9, platelet count 247,000. Blood gas: pH 7.51, pCO2 33, pO2 148. Electrolytes: BUN 22, creatinine 2.1. Chest x- ray did show mild improvement. PATIENT'S PROBLEM LIST: 1. Acute on chronic respiratory failure. 2. Diabetes mellitus. 3. Acute on chronic kidney failure. 4. Possible aspiration pneumonia. 5. Morbid obesity. The patient lost weight. 6. Hypertension. PLAN: 1. Patient is on broad-spectrum antibiotics. 2. Will continue current treatment. 3. We are monitoring his blood sugar, electrolytes, and chest x-ray. I appreciate Dr. Delgado and Dr. Watson's help managing this patient. 4. Overall plan, fair to guarded. cc: Hayden Alejandre MD
[2018-05-12] MEDS ORDERED: NS 2,000 ML MISC PRN (07:43)
[2018-05-12] MEDS: MUCOMYST 20% INH SCH ×2 (08:25→19:18)
--- NOTE | 2018-05-12 09:10 | Diag Imaging Result Doc PS360 ---
EXAM: CHEST/ABD TUBE PLACEMENT HISTORY: abdominal tube placement confirmation TECHNIQUE: Chest abdomen single view COMPARISON: 5:35 AM FINDINGS: There is a nasogastric tube overlying the esophagus and upper stomach. It is coiled upon itself and the tip extends into the distal esophagus and not within the stomach. This report was discussed with Nila the patient's nurse in the intensive care unit on 05/12/2018 at 9:05 AM and was readback. Electronically signed by Bobo Jennings 05/12/2018 9:08 AM
[2018-05-12] MEDS: LOVENOX SUBQ SCH (09:45)
[2018-05-12] MEDS: HYDROPHOR OINTMENT TOP SCH ×2 (09:46→22:06)
[2018-05-12] MEDS: LOTRISONE CREAM TOP SCH ×2 (09:46→22:05)
--- NOTE | 2018-05-12 10:33 | Diag Imaging Result Doc PS360 ---
CHEST/ABD TUBE PLACEMENT - 05/12/2018 9:50 AM INDICATION: ng tube placement COMPARISON: 8:39 AM FINDINGS: There is a nasogastric tube in good position with the tip in the stomach. IMPRESSION: Nasogastric tube in the stomach. Electronically signed by Mirza Baker 05/12/2018 10:31 AM
--- NOTE | 2018-05-12 10:42 | NEPHROLOGY PROGRESS NOTE ---
DATE: 05/12/2018 SUBJECTIVE: He is sedated on the ventilator, unresponsive. OBJECTIVE: Vital Signs: Blood pressure 151/67, heart rate 79, respirations 12, intake 2L, output 6.1 L. Physical Exam: No acute distress. Sedated. Skin: Warm and dry. Neck: Neck veins are not appreciated. Heart: Regular. Lungs: Equal no crackles. Abdomen: Soft, obese, nontender. Bowel sounds present. Extremities: 1+ edema. No clubbing or cyanosis. IMPRESSION: Acute kidney injury. No urine output. SLED today with a 4 K bath 27 bicarbonate and a goal of 4-6 L ultrafiltration. cc: MD Hayden Lui MD
[2018-05-12] MEDS: APRESOLINE PO SCH ×3 (11:05→18:00)
[2018-05-12] MEDS: CELEXA PO SCH (11:45)
[2018-05-12] MEDS: NORVASC PO SCH (11:45)
[2018-05-12] MEDS: ASPIRIN PO SCH (11:46)
[2018-05-12] MEDS: ZEBETA PO SCH (11:46)
[2018-05-12] MEDS: SINGULAIR PO SCH (11:46)
--- NOTE | 2018-05-12 12:02 | PULMONOLOGY PROGRESS NOTE ---
DATE: 05/12/2018 SUBJECTIVE: The patient is awake. He will follow commands. OBJECTIVE: Maximum temperature in the last 24 hours is 100.0 degrees, blood pressure 143/62, heart rate 79, respiratory rate 15, oxygen saturation 95%. HEENT: Pupils are equal and reactive. Oropharynx is clear. Neck is supple. Chest reveals diminished breath sounds and rhonchi throughout the left chest. Cardiac: S1, S2. Abdomen is obese and soft. Extremities reveal some edema. DIAGNOSTIC DATA: White blood count is 10.49, hemoglobin 9.2, platelet count 247 ,000. Sputum cultures reveal only roman. Sodium is 140, potassium 3.8, chloride 103, bicarbonate 24, BUN is 13, creatinine 2.1, glucose 112. Chest x-ray reveals marginal reexpansion of the left lung. IMPRESSION: A 73 year old with acute hypoxemic respiratory failure, morbid obesity, acute cor pulmonale, diastolic heart failure, acute renal failure, with fluctuating atelectasis of the left lung. The patient is placed on pressure support and lavage. He has a large amount of grossly purulent secretions which were suctioned until clear. It is hoped with continued bronchial hygiene, the left lung will reexpand. RECOMMENDATIONS: 1. Continue ventilatory support. 2. Continue augmented chest physical therapy. 3. Prognosis is guarded. Time spent in critical care management: 30+ minutes cc: MD Hayden Epstein MD [facility]
[2018-05-12] MEDS: TYLENOL PO PRN (15:09)
[2018-05-12] MEDS ORDERED: VANCOMYCIN 1 GM/NS 1 GM/250 ML IVPB IV ONE (17:00)
[2018-05-12] MEDS: DIFLUCAN 100 MG/NS 100 MG/50 ML IVPB IV SCH (18:01)
[2018-05-12] MEDS: TYLENOL PR PRN (19:23)
[2018-05-12] MEDS: PROTONIX IV SCH (22:05)
[2018-05-13] MEDS: MORPHINE IV PRN (00:38)
[2018-05-13] MEDS: DUONEB (A & A) INH SCH ×6 (03:24→23:29)
[2018-05-13] MEDS: ZOSYN 2.25 GM in NS 50 ML IV SCH ×3 (04:03→23:34)
[2018-05-13 04:52] LABS: ALLEN TEST YES; BE -4.2 mmoll (-3.0-3.0); BLOOD TYPE ARTERIAL; HCO3-(ACT) 21.5 mmoll (20.0-26.0); METHB 0.7 % (0.0-1.5); O2(CT) 17.8 mL/dL (15.0-23.0); PCO2(98.6) 38 mmHg (35-45); PO2(98.6) 68 mmHg (60-100); SAMPLE BLOOD; SAO2 95.6 % (95.0-100.0); SRATE 8 BPM; THB 13.6 g/dL (11.5-17.4); TVOL 900 mL; pH(98.6) 7.35 (7.35-7.45)
[2018-05-13 04:53] LABS: MODALITY VENTILATOR
[2018-05-13 05:06] LABS: HEMATOCRIT 31.7 % (42.0-52.0); HEMOGLOBIN 9.7 g/dL (14.0-18.0); MCH 24.9 PG (27-31); MCHC 30.6 g/dL (33-37); MCV 81.5 FL (81-99); MPV 10.5 FL (7.4-10.4); RBC 3.89 XMIL (4.7-6.1); RDW 17.7 % (11.5-14.5); WBC 28.78 X1000 (4.8-10.8)
[2018-05-13 05:20] LABS: ALB/GLOB RATIO 0.5; ALBUMIN 2.8 g/dL (3.5-5.0); CALCIUM 9.2 mg/dL (8.8-10.2); CREATININE 2.1 mg/dL (0.7-1.2); POTASSIUM 4.7 mmol/L (3.5-5.1); TOTAL BILIRUBIN 1.01 mg/dL (0.20-1.00)
[2018-05-13] MEDS: HUMALOG SUBQ SCH ×4 (07:54→23:34)
[2018-05-13] MEDS: ZEBETA PO SCH (08:20)
[2018-05-13] MEDS: NORVASC PO SCH (08:20)
[2018-05-13] MEDS: APRESOLINE PO SCH ×3 (08:21→16:40)
[2018-05-13] MEDS: LOTRISONE CREAM TOP SCH ×2 (08:24→23:34)
[2018-05-13] MEDS: LOVENOX SUBQ SCH (08:24)
[2018-05-13] MEDS: HYDROPHOR OINTMENT TOP SCH ×2 (08:24→23:34)
[2018-05-13] MEDS: ASPIRIN PO SCH (08:24)
[2018-05-13] MEDS: SINGULAIR PO SCH (08:24)
[2018-05-13] MEDS: CELEXA PO SCH (08:24)
[2018-05-13] MEDS: MUCOMYST 20% INH SCH ×2 (08:37→19:57)
--- NOTE | 2018-05-13 08:52 | Diag Imaging Result Doc PS360 ---
CHEST-PORTABLE - 05/13/2018 INDICATION: respiratory failure COMPARISON: 05/12/2018 FINDINGS: Stable endotracheal tube, nasogastric tube, temperature probe, and right dialysis catheter in good position. Stable severe cardiomegaly and pulmonary vascular congestion. There is worsening infiltrate or atelectasis at the right lung base, with significant improvement at the left upper lobe. There is significant consolidation or collapse of the left lower lobe. IMPRESSION: Shifting opacities in the lungs. No complication. Electronically signed by Mirza Baker 05/13/2018 8:50 AM
--- NOTE | 2018-05-13 14:35 | PROGRESS NOTE ---
DATE: 05/13/2018 SUBJECTIVE: Patient remains in ICU on mechanical ventilation per Dr. Delgado and the pulmonary team. He has had some marginal blood pressures running around 90 this morning, and so his antihypertensives have been held that he had been taking per NG tube. OBJECTIVE: Vital Signs: T-max 100.4 degrees. 102.8, pulse 57, respirations 13 on ventilator, BP 92, 90 3/40. yesterday with 1980 in 40 and 50 out. X-RAY: Today reveals stable cardiomegaly and pulmonary vascular congestion, worsening atelectasis or infiltrate at the right lung base with improvement noted at the left upper lobe. Significant consolidation or collapse of the left lower lobe. ASSESSMENT: 1. Respiratory failure on mechanical ventilation. 2. Pneumonia. 3. Morbid obesity. 4. Cor pulmonale. 5. Diastolic congestive heart failure. 6. Acute on chronic renal failure. 7. Prominent atelectasis, left lung. 8. Hypotension. PLAN: Nurses holding his blood pressure medications. He is on intravenous antibiotics in the form of Zosyn, and he is also on Diflucan and vancomycin nebulizer treatments like DuoNebs are in progress along with Mucomyst. Continue vigorous supportive measures. cc: MD Hayden Perez MD
--- NOTE | 2018-05-13 14:45 | PULMONOLOGY PROGRESS NOTE ---
DATE: 05/13/2018 SUBJECTIVE: The patient opens his eyes and does respond to voice. He is not following commands. OBJECTIVE: Vital signs: T-max in the last 24 hours 102.8 degrees. Current temperature 97.7. HEENT: Pupils are equal and reactive. Oropharynx appears clear. Neck: Supple. Chest: Reveals better breath sounds bilaterally. Cardiac: S1, S2. Abdomen: Obese and soft. Extremities: Without edema. LABORATORY: WBC is elevated at 28,000, hemoglobin 9.7, platelet count 248,000. Arterial blood gas: pH 7.35, pCO2 of 38, pO2 68. Chest x-ray reveals some continued reexpansion on the left with some new infiltrate at the right base. Microbiology: bronchial washings reveal roman. Sputum culture is pending. IMPRESSION: 73-year-old with acute hypoxemic respiratory failure, morbid obesity, acute cor pulmonale, diastolic heart failure, fever, fluctuating infiltrates, and acute renal failure. The patient's respiratory secretions have significantly diminished today compared to yesterday. He did have a fever in the evening which may be related to the large lavage that was required yesterday to clear his mucus plugging. If fever does not reoccur, and he clinically looks similar tomorrow, I will potentially plan an extubation. He is at high risk for failing extubation, and I will discuss code status with his before he is extubated. RECOMMENDATIONS: 1. Continue ventilatory support. 2. Await sputum cultures. 3. Daily spontaneous breathing trial. 4. Continue augmented chest physical therapy. 5. End of life discussions planned as outlined above prior to extubation. Time spent critical care management: 30+ minutes cc: MD Hayden Epstein MD [facility]
--- NOTE | 2018-05-13 16:11 | NEPHROLOGY PROGRESS NOTE ---
DATE: 05/30/2018 SUBJECTIVE: He remains sedated on the ventilator. OBJECTIVE: Vital Signs: Blood pressure 96/40, heart rate 66, respirations 13. Intake 2 L; output 4 L. General: Physical exam sedated and unresponsive. Skin: Warm and dry. Eyes: Conjunctivae are pink. Neck: Neck veins are not distended. Oropharynx is dry. Heart: Regular. Lungs: Equal breath sounds. No crackles or wheezes. Abdomen: Soft, obese, nontender. Bowel sounds are present. Extremities: With only trace edema. No clubbing or cyanosis. IMPRESSION: Acute kidney injury. No recovery. Electrolytes acid-base and volume status are all markedly improved. Oxygenation is improved. No dialysis over the weekend. cc: MD Hayden Lui MD
[2018-05-13] MEDS: DIFLUCAN 100 MG/NS 100 MG/50 ML IVPB IV SCH (17:42)
[2018-05-13] MEDS: PROTONIX IV SCH (23:33)
[2018-05-14] MEDS: DUONEB (A & A) INH SCH ×6 (03:23→22:56)
[2018-05-14 04:39] LABS: HEMATOCRIT 30.6 % (42.0-52.0); HEMOGLOBIN 9.2 g/dL (14.0-18.0); MCH 24.3 PG (27-31); MCHC 30.1 g/dL (33-37); MPV 10.6 FL (7.4-10.4); RBC 3.78 XMIL (4.7-6.1); RDW 18.3 % (11.5-14.5); WBC 20.43 X1000 (4.8-10.8)
[2018-05-14 04:40] LABS: ALLEN TEST YES; BE -3.6 mmoll (-3.0-3.0); BLOOD TYPE ARTERIAL; HCO3-(ACT) 22.1 mmoll (20.0-26.0); METHB 0.7 % (0.0-1.5); O2(CT) 13.2 mL/dL (15.0-23.0); O2HB 94.4 % (95.0-99.0); PCO2(98.6) 42 mmHg (35-45); PO2(98.6) 75 mmHg (60-100); SAMPLE BLOOD; SAO2 95.8 % (95.0-100.0); SRATE 8 BPM; THB 9.9 g/dL (11.5-17.4); TVOL 900 mL; pH(98.6) 7.33 (7.35-7.45)
[2018-05-14 04:43] LABS: MODALITY VENTILATOR
[2018-05-14 05:04] LABS: ALB/GLOB RATIO 0.5; ALBUMIN 2.7 g/dL (3.5-5.0); CALCIUM 9.2 mg/dL (8.8-10.2); CREATININE 3.5 mg/dL (0.7-1.2); POTASSIUM 4.6 mmol/L (3.5-5.1); TOTAL BILIRUBIN 0.63 mg/dL (0.20-1.00); TOTAL PROTEIN 7.7 g/dL (6.3-8.3)
[2018-05-14] MEDS: HUMALOG SUBQ SCH ×4 (06:28→22:03)
[2018-05-14] MEDS: ZOSYN 2.25 GM in NS 50 ML IV SCH ×3 (06:29→22:00)
--- NOTE | 2018-05-14 07:29 | Diag Imaging Result Doc PS360 ---
CHEST-PORTABLE - 05/14/2018 INDICATION: respiratory failure COMPARISON: 05/13/2018 FINDINGS: Stable endotracheal tube, nasogastric tube, and temperature probe in good position. Stable right dialysis catheter. Stable severe cardiomegaly and pulmonary vascular congestion. Stable extensive bilateral central infiltrates. No pneumothorax or large pleural effusion. IMPRESSION: No change from prior. Electronically signed by Mirza Baker 05/14/2018 7:27 AM
[2018-05-14] MEDS: MUCOMYST 20% INH SCH ×2 (08:38→19:44)
[2018-05-14] MEDS: ASPIRIN PO SCH (08:41)
[2018-05-14] MEDS: LOTRISONE CREAM TOP SCH ×2 (08:41→22:03)
[2018-05-14] MEDS: LOVENOX SUBQ SCH (08:41)
[2018-05-14] MEDS: SINGULAIR PO SCH (08:41)
[2018-05-14] MEDS: CELEXA PO SCH (08:41)
[2018-05-14] MEDS: HYDROPHOR OINTMENT TOP SCH ×2 (08:41→22:03)
[2018-05-14] MEDS: NORVASC PO SCH (08:44)
[2018-05-14] MEDS: APRESOLINE PO SCH ×3 (08:45→16:05)
[2018-05-14] MEDS: ZEBETA PO SCH (08:46)
--- NOTE | 2018-05-14 10:36 | PULMONOLOGY PROGRESS NOTE ---
DATE: 05/14/2018 SUBJECTIVE: The patient is arousable. He nods to simple questions. OBJECTIVE: Vital signs: The patient has been afebrile. For the last 24 hours. BP 129/63, heart rate 69, respiratory rate 21, oxygen saturation 97% on mechanical ventilation. HEENT: Pupils are equal and reactive. Oropharynx is clear. Neck: Supple. Chest: Reveals good air entry bilaterally. Cardiac exam S1-S2. Abdomen: Obese and soft. Extremities: Warm to the touch. LABORATORIES: Chest x-ray reveals relatively good expansion with residual changes at the left base and right base. White blood count 20,000, hemoglobin 9.2, platelet count 236,000. Sodium 138, potassium 4.6, chloride 103, bicarbonate 20, BUN 46, creatinine 3.5, glucose 140. Arterial blood gas, pH 7.33, pCO2 of 42, PO2 of 75. IMPRESSION: A 73-year-old with acute hypoxemic respiratory failure, morbid obesity, cor pulmonale, diastolic heart failure, fluctuating infiltrates and atelectasis, acute renal failure. The patient's fevers have resolved. Sputum production has markedly diminished. He has been initiated on a spontaneous breathing trial. If extubation is planned, I will call his and discuss whether the patient would request re-intubation and address his code status before extubation. RECOMMENDATION: 1. Initiate and continue a breathing trial this morning. 2. Continue current antibiotic regimen. 3. Continue physical therapy. 4. End of life discussions with the prior to extubation. The patient's is unable to get to the hospital due to her physical condition and a phone call will be made. Time spent critical care: 30+ minutes cc: MD Hayden Epstein MD [facility]
[2018-05-14 11:20] LABS: ALLEN TEST YES; BE -4.3 mmoll (-3.0-3.0); BLOOD TYPE ARTERIAL; HCO3-(ACT) 21.6 mmoll (20.0-26.0); METHB 0.5 % (0.0-1.5); O2(CT) 12.9 mL/dL (15.0-23.0); O2HB 96.8 % (95.0-99.0); PCO2(98.6) 43 mmHg (35-45); PO2(98.6) 109 mmHg (60-100); SAMPLE BLOOD; SAO2 98.2 % (95.0-100.0); THB 9.3 g/dL (11.5-17.4); pH(98.6) 7.31 (7.35-7.45)
[2018-05-14 11:21] LABS: MODALITY VENTILATOR
--- NOTE | 2018-05-14 12:15 | PROGRESS NOTE ---
DATE: 05/14/2018 SUBJECTIVE: This progress note is concerning his code status. The patient has been on a breathing trial this morning and has been doing well. He is ready for extubation. I discussed with his over the phone his wishes if he were to fail extubation, realizing that he will be difficult to extubate if he fails today given his comorbidities. It is her belief that he would not want to be reintubated and that if he were going to pass, he would not want aggressive care to stop his . Ms. Norton has difficulty traveling without a special bus. She has asked me to proceed with the extubation and she would try to arrange a ride to the hospital today or tomorrow if possible. cc: MD Hayden Epstein MD [facility]
--- NOTE | 2018-05-14 13:07 | PROGRESS NOTE ---
DATE: 05/14/2018 SUBJECTIVE: Patient is currently undergoing extubation this morning. He has undergone a breathing trial off the ventilator this morning and so far has done well. Dr. Delgado has discussed with the family and some of the family is in attendance now. OBJECTIVE: Vital signs: Afebrile, pulse 87, respirations 19, blood pressure 100/58, O2 saturation 91 to 95% as the extubation is in progress. No exam done. LAB DATA: Reviewed in detail and shows creatinine 3.5, potassium 4.6. White count 20, hemoglobin 9.2, platelets 236,000. Chest x-ray shows no major change from yesterday. ASSESSMENT: 1. Respiratory failure, improved overall. 2. Pneumonia. 3. Morbid obesity. 4. Cor pulmonale. 5. Diastolic congestive heart failure. 6. Acute on chronic renal failure. 7. Left lung atelectasis. PLAN: Patient undergoing extubation. Remains on vigorous IV antibiotics in the form of Zosyn and vancomycin. He is on Diflucan, DuoNeb, Mucomyst. Dr. Delgado has spoken with the patient's regarding end-of-life measures and she does not want re-intubation should that be necessary. We will continue to follow along with Dr. Delgado and his excellent care. cc: MD Hayden Perez MD
[2018-05-14] MEDS: DIFLUCAN 100 MG/NS 100 MG/50 ML IVPB IV SCH (17:09)
[2018-05-14] MEDS: SODIUM CHLORIDE 0.9% INJ SCH (22:00)
[2018-05-14] MEDS: PROTONIX IV SCH (22:00)
[2018-05-15] MEDS: DUONEB (A & A) INH SCH ×6 (03:08→23:50)
[2018-05-15 04:34] LABS: ALLEN TEST YES; BE -4.8 mmoll (-3.0-3.0); BLOOD TYPE ARTERIAL; HCO3-(ACT) 21.2 mmoll (20.0-26.0); METHB 0.7 % (0.0-1.5); O2(CT) 13.5 mL/dL (15.0-23.0); O2HB 96.4 % (95.0-99.0); PCO2(98.6) 45 mmHg (35-45); PO2(98.6) 123 mmHg (60-100); SAMPLE BLOOD; SAO2 97.9 % (95.0-100.0); THB 9.8 g/dL (11.5-17.4); pH(98.6) 7.29 (7.35-7.45)
[2018-05-15 04:39] LABS: MODALITY BI PAP
[2018-05-15] MEDS: ZOSYN 2.25 GM in NS 50 ML IV SCH ×3 (04:58→20:44)
[2018-05-15 05:46] LABS: HEMOGLOBIN 9.4 g/dL (14.0-18.0); MCH 24.5 PG (27-31); MCHC 30.3 g/dL (33-37); MCV 80.9 FL (81-99); MPV 10.8 FL (7.4-10.4); RBC 3.83 XMIL (4.7-6.1); RDW 18.3 % (11.5-14.5); WBC 13.65 X1000 (4.8-10.8)
[2018-05-15] MEDS: HUMALOG SUBQ SCH ×4 (06:10→20:36)
[2018-05-15 06:50] LABS: ALB/GLOB RATIO 0.4; ALBUMIN 2.2 g/dL (3.5-5.0); CALCIUM 9.6 mg/dL (8.8-10.2); CREATININE 4.6 mg/dL (0.7-1.2); TOTAL BILIRUBIN 0.67 mg/dL (0.20-1.00); TOTAL PROTEIN 7.4 g/dL (6.3-8.3)
--- NOTE | 2018-05-15 06:57 | Diag Imaging Result Doc PS360 ---
EXAM: CHEST-PORTABLE HISTORY: respiratory failure TECHNIQUE: Portable chest COMPARISON: 05/14/2018 FINDINGS: There is now near complete opacification of the left hemithorax. Infiltrates remain in the right lung. The endotracheal tube is been removed. A nasogastric tube overlies the esophagus and stomach. IMPRESSION: Interval opacification of the left hemithorax. This may be due to a mucous plug. No improvement on the right. Electronically signed by Bobo Jennings 05/15/2018 6:55 AM
--- NOTE | 2018-05-15 07:03 | PROGRESS NOTE ---
DATE: 05/15/2018 SUBJECTIVE: Mr. Norton is doing fair. The patient was extubated yesterday. The patient is on BiPAP, tolerating it fair. At times, he was trying to pull the BiPAP mask, requiring restraint. Occasional cough. No expectoration. No nausea or vomiting. We restarted his NG tube feeding. OBJECTIVE: Vital signs: Noted blood pressure 111/61, pulse 76, respirations 15, temperature 97.2 degrees. Skin: Senile turgor. Neck: Supple. No JVD. Lungs: Bibasilar crepitation. Heart: S1 and S2 heard. Abdomen: Soft, globular. Bowel sounds present. Extremities: Leg swelling improved. METAL ROOFER: Alert, awake, answering questions fairly well. LABORATORY DATA: Done today: WBC count 13.65, hemoglobin 9.4, hematocrit 31, platelet 259,000. Blood gas result reviewed. Blood sugar was 109. ASSESSMENT: The patient's problems include: 1. Chronic respiratory failure. 2. Possible aspiration pneumonia. 3. Leukocytosis, improved. 4. Acute on chronic kidney failure, on dialysis. 5. Diabetes mellitus. 6. History of hypertension. Blood pressure is staying low. Appreciate Dr. Delgado's and Dr. Watson's help managing this patient. CMP result is pending. Will continue current treatment and close observation. I am going to decrease Norvasc to 5 mg. Continue rest of the treatment and close observation. cc: Hayden Alejandre MD
[2018-05-15 07:20] LABS: POTASSIUM 5.5 mmol/L (3.5-5.1)
[2018-05-15] MEDS: MUCOMYST 20% INH SCH ×2 (08:04→20:08)
[2018-05-15] MEDS: LOVENOX SUBQ SCH (08:40)
[2018-05-15] MEDS: HYDROPHOR OINTMENT TOP SCH ×2 (08:41→20:43)
[2018-05-15] MEDS: LOTRISONE CREAM TOP SCH ×2 (08:41→20:44)
[2018-05-15] MEDS ORDERED: NS 2,000 ML MISC PRN (08:47)
[2018-05-15] MEDS ORDERED: TIGHT: 0.2 ML/HR FOR DIALYSIS MISC PRN (08:47)
[2018-05-15] MEDS ORDERED: HEPARIN IV PRN (08:47)
[2018-05-15] MEDS: CELEXA PO SCH (09:40)
[2018-05-15] MEDS: SINGULAIR PO SCH (09:40)
[2018-05-15] MEDS: NORVASC PO SCH (09:41)
[2018-05-15] MEDS: APRESOLINE PO SCH ×3 (09:41→16:06)
[2018-05-15] MEDS: ZEBETA PO SCH (09:41)
[2018-05-15] MEDS: ASPIRIN PO SCH (09:41)
--- NOTE | 2018-05-15 11:33 | NEPHROLOGY PROGRESS NOTE ---
DATE: 05/15/2018 SUBJECTIVE: The patient is sitting up in bed. He will make eye contact. He will follow commands. Nonverbal. OBJECTIVE: Vital Signs: Temperature 97.2 degrees, pulse 87, respiratory rate 21, blood pressure 95/64. Intake 360 mL. Output 15 mL. General: This is an elderly gentleman, resting in bed. He is awake and alert. Nonverbal. HEENT: Normocephalic, atraumatic. Oral mucosa appears dry. Neck: Supple without JVD. Cardiovascular: Regular rate and rhythm. Pulmonary : He has some rhonchi bilaterally. No increased work of breathing. Abdomen: Obese with positive bowel sounds. : Kessler catheter. Scant urine. Extremities: Trace edema. He has wrinkling noted bilateral lower extremities. He has venous stasis changes noted bilateral lower extremities. Integumentary: Skin is warm and dry. LAB DATA: WBC of 13.6, hemoglobin 9.4. Sodium 132, CO2 14, creatinine 4.6. ASSESSMENT AND PLAN: Acute kidney injury without recovery. His creatinine went up a point yesterday without dialysis. We will plan to dialyze him today on a 2 K bath/UF 2-3 L as tolerated/4 hour treatment. If he can tolerate, we will dialyze him on IHD. As he is on no pressor support, we will try to dialyze over in the dialysis unit today. Dictated by CAROLINE Bella for Benito Watson MD Face to face encounter, data reviewed, discussed with Jose Resendiz on 05/15/18. I agree with the above assessment and plan of care. cc: MD Hayden Lui MD [facility]
--- NOTE | 2018-05-15 13:15 | PULMONOLOGY PROGRESS NOTE ---
DATE: 05/15/2018 SUBJECTIVE: Patient is awake, alert. His voice is very weak. He has a weak cough effort. He does not appear to be in distress. OBJECTIVE: Vital Signs: Blood pressure 101/53, heart rate 85, respiratory rate 19, oxygen saturation 92% on nasal cannula. HEENT: Pupils are equal and reactive. Oropharynx is clear. Neck: Supple. Chest: Reveals diminished breath sounds in the left lung. Cardiac exam: S1-S2. Abdomen: Obese and soft. Extremities are without edema. LABORATORIES: Chest x-ray reveals re-opacifications of the left hemithorax with atelectasis. Arterial blood gas, pH 7.29, pCO2 of 45, pO2 of 123. White blood count 13.65, hemoglobin 9.4, platelet count 259,000. IMPRESSION: A 73-year-old with acute hypoxemic respiratory failure. 1. Morbid obesity. 2. Cor pulmonale. 3. Acute renal failure. 4. Diastolic heart failure. 5. Recurrent atelectasis of the left lung. Bronchoscopy did not reveal endobronchial lesion. 6. The patient is having difficulty with deep breath and cough due to weakness and his obesity. 7. His prognosis is guarded. RECOMMENDATIONS: 1. Continue vancomycin for MRSA identified in the sputum. 2. Continue bronchodilators. 3. Continue aggressive chest physical therapy. The patient will be placed in the right decubitus position and an aid to help clear the mucus from the left lung. 4. Overall prognosis is guarded to poor. cc: MD Hayden Epstein MD
[2018-05-15] MEDS ORDERED: VANCOMYCIN 1 GM/NS 1 GM/250 ML IVPB IV ONE (17:00)
[2018-05-15] MEDS: DIFLUCAN 100 MG/NS 100 MG/50 ML IVPB IV SCH (17:08)
[2018-05-15] MEDS: PROTONIX IV SCH (20:44)
[2018-05-16] MEDS: DUONEB (A & A) INH SCH ×6 (03:48→23:16)
[2018-05-16] MEDS: ZOSYN 2.25 GM in NS 50 ML IV SCH ×2 (04:23→17:23)
[2018-05-16 04:45] LABS: ALLEN TEST YES; BE -1.5 mmoll (-3.0-3.0); BLOOD TYPE ARTERIAL; HCO3-(ACT) 23.8 mmoll (20.0-26.0); METHB 0.5 % (0.0-1.5); O2(CT) 13.2 mL/dL (15.0-23.0); O2HB 95.9 % (95.0-99.0); PCO2(98.6) 41 mmHg (35-45); PO2(98.6) 98 mmHg (60-100); SAMPLE BLOOD; SAO2 97.6 % (95.0-100.0); THB 9.7 g/dL (11.5-17.4); pH(98.6) 7.37 (7.35-7.45)
[2018-05-16 04:46] LABS: MODALITY BI PAP
[2018-05-16 05:00] LABS: HEMATOCRIT 29.8 % (42.0-52.0); HEMOGLOBIN 9.3 g/dL (14.0-18.0); MCH 24.9 PG (27-31); MCHC 31.2 g/dL (33-37); MCV 79.7 FL (81-99); MPV 10.4 FL (7.4-10.4); RBC 3.74 XMIL (4.7-6.1); RDW 17.9 % (11.5-14.5); WBC 9.49 X1000 (4.8-10.8)
[2018-05-16 05:24] LABS: ALB/GLOB RATIO 0.5; ALBUMIN 2.5 g/dL (3.5-5.0); CALCIUM 8.2 mg/dL (8.8-10.2); POTASSIUM 4.6 mmol/L (3.5-5.1); TOTAL BILIRUBIN 0.79 mg/dL (0.20-1.00); TOTAL PROTEIN 7.3 g/dL (6.3-8.3)
[2018-05-16] MEDS: HUMALOG SUBQ SCH ×4 (06:07→20:08)
--- NOTE | 2018-05-16 07:08 | PROGRESS NOTE ---
DATE: 05/16/2018 SUBJECTIVE: Mr. Norton is doing fair. Oral intake is poor. Blood pressure is staying low at times. No high-grade fever or chills. Temperature sustainability manager was 97.8. No diarrhea. OBJECTIVE: His vital signs noted. Lungs: Decreased air entry both the bases. Patient does have poor air entry on the left lung. CVS: S1 and S2 heard. Abdomen: Soft, globular. Bowel sounds present. DIRECTOR PEOPLESOFT: Alert, awake. The patient is sleeping, but arousable. Uncooperative for detailed exam. The patient does have a decubitus ulcer. We are doing local wound care. LABORATORY DATA: Done today, hemoglobin 9.3, hematocrit 29.8, WBC count 9.49, platelet 262,000. Blood gas results reviewed. Potassium 4.6, BUN 59, creatinine was 4, patient is getting hemodialysis. LFT results reviewed. Chest x-ray done yesterday noted. Patient is on broad- spectrum antibiotics. Pulmonary toilet. PLAN: We will continue current treatment. Close observation. Local wound care for decubitus. Overall prognosis fair to guarded. Family is aware of the prognosis. cc: Hayden Alejandre MD
--- NOTE | 2018-05-16 07:12 | Diag Imaging Result Doc PS360 ---
EXAM: CHEST-PORTABLE 05/16/2018 HISTORY: respiratory failure TECHNIQUE: AP portable at 0536 COMMENT: Compared to 05/15/2018 the atelectasis in the left upper lobe has nearly completely resolved. There is still some interstitial and alveolar opacity in both lower lobes however this is also improved with respect to the right lung. IMPRESSION: Improved left upper lobe atelectasis and pulmonary edema. Residual atelectasis versus pneumonia in both lower lobes. Electronically signed by Terry Díaz 05/16/2018 7:10 AM
[2018-05-16] MEDS: CELEXA PO SCH (08:06)
[2018-05-16] MEDS: SINGULAIR PO SCH (08:06)
[2018-05-16] MEDS: LOVENOX SUBQ SCH (08:07)
[2018-05-16] MEDS: MUCOMYST 20% INH SCH ×2 (08:08→19:32)
[2018-05-16] MEDS: HYDROPHOR OINTMENT TOP SCH ×2 (08:13→20:09)
[2018-05-16] MEDS: LOTRISONE CREAM TOP SCH ×2 (08:14→20:09)
[2018-05-16] MEDS: NORVASC PO SCH (08:22)
[2018-05-16] MEDS ORDERED: HEPARIN IV PRN (08:22)
[2018-05-16] MEDS ORDERED: TIGHT: 0.2 ML/HR FOR DIALYSIS MISC PRN (08:22)
[2018-05-16] MEDS ORDERED: NS 2,000 ML MISC PRN (08:22)
[2018-05-16] MEDS: ZEBETA PO SCH (08:22)
[2018-05-16] MEDS: ASPIRIN PO SCH (08:23)
[2018-05-16] MEDS: APRESOLINE PO SCH ×3 (08:23→16:59)
--- NOTE | 2018-05-16 15:19 | NEPHROLOGY PROGRESS NOTE ---
DATE: 05/16/2018 DATE AND TIME: Today's date 05/16/2018, time seen 0830 a.m. SUBJECTIVE: Patient is sitting up in bed, interacting. OBJECTIVE: Vital Signs: Temperature 97.8, pulse 81, respiratory 19, blood pressure 115/45. Intake 400 mL. Output 2 L. General: Elderly gentleman resting in bed. No acute distress. HEENT: Normocephalic, atraumatic. Oral mucosa dry. Neck: Supple. No JVD. Cardiovascular: Regular rate and rhythm. Pulmonary: He has rhonchi significantly bilaterally. Genitourinary: Kessler catheter. Extremities: He has trace edema. Integumentary: Skin is warm and dry. LAB DATA: WBC of 9.4, hemoglobin 9.3, sodium 139, potassium 4.6, CO2 23, creatinine 4.0, albumin 2.5. ASSESSMENT AND PLAN: 1. Acute kidney injury without recovery. He continues with rhonchi and appears to have continued fluid volume on. We will dialyze today with a goal of 2 L of fluid removal. 2. MRSA in the sputum. Appropriately dosed antibiotics. Followed by Infectious Disease. Dictated by CAROLINE Bella for Benito Watson MD Face to face encounter, data reviewed, discussed with Jose Resendiz on 05/16/17. I agree with the above assessment and plan of care. cc: MD Hayden Lui MD [facility]
[2018-05-16] MEDS: DIFLUCAN 100 MG/NS 100 MG/50 ML IVPB IV SCH (17:23)
[2018-05-16] MEDS: PROTONIX IV SCH (20:09)
--- NOTE | 2018-05-16 22:36 | PULMONOLOGY PROGRESS NOTE ---
DATE: 05/16/2018 SUBJECTIVE: Patient is awake and alert. He reports he is thirsty. He was given several ice chips which he tolerated without difficulty. He has a marginal cough effort. OBJECTIVE: The patient has been afebrile for the last 24 hours. BP 118/50, heart rate 85, respiratory rate 25, oxygen saturation 93% on nasal cannula.HEENT: Pupils are equal and reactive. Oropharynx is clear. Neck: Is supple. Chest: Reveals better air flow on the left apex. Cardiac: S1-S2. Abdomen: Obese and soft. EXTREMITIES: Without edema. LABORATORIES: White blood count 9.49, hemoglobin 9.3, platelet count 262,000. Sodium 139, potassium 4.6, chloride 101, bicarbonate 23, BUN 59, creatinine 4.0. Arterial blood gas reveals a pH of 7.37, pCO2 of 41, pO2 of 98 on BiPAP. Chest x-ray reveals partial reexpansion of the left lung. IMPRESSION: A 73-year-old with acute hypoxemic respiratory failure, morbid obesity, cor pulmonale, acute renal failure, diastolic heart failure, methicillin-resistant Staphylococcus aureus with recurrent atelectasis of the left lung, generalized weakness. His overall prognosis is guarded. He has had some clinical improvement with partial reexpansion of the left upper lobe. RECOMMENDATIONS: 1. Continue bronchodilators and aggressive chest physical therapy. 2. Continue vancomycin for methicillin-resistant Staphylococcus aureus identified in the sputum. 3. Begin ice chips. If he does well would consider advancing diet as tolerated but his overall prognosis remains poor. cc: MD Hayden Epstein MD
[2018-05-17] MEDS: ZOSYN 2.25 GM in NS 50 ML IV SCH ×3 (01:09→17:33)
[2018-05-17] MEDS: DUONEB (A & A) INH SCH ×6 (03:09→23:20)
[2018-05-17 04:43] LABS: HEMATOCRIT 29.6 % (42.0-52.0); HEMOGLOBIN 9.2 g/dL (14.0-18.0); MCH 24.3 PG (27-31); MCHC 31.1 g/dL (33-37); MCV 78.3 FL (81-99); MPV 10.2 FL (7.4-10.4); RBC 3.78 XMIL (4.7-6.1); RDW 17.7 % (11.5-14.5); WBC 7.87 X1000 (4.8-10.8)
[2018-05-17 05:20] LABS: ALB/GLOB RATIO 0.6; ALBUMIN 2.7 g/dL (3.5-5.0); CALCIUM 8.1 mg/dL (8.8-10.2); CREATININE 3.3 mg/dL (0.7-1.2); POTASSIUM 4.2 mmol/L (3.5-5.1); TOTAL BILIRUBIN 0.96 mg/dL (0.20-1.00); TOTAL PROTEIN 7.6 g/dL (6.3-8.3)
[2018-05-17 05:20] LABS: ALLEN TEST YES; BLOOD TYPE ARTERIAL; HCO3-(ACT) 27.3 mmoll (20.0-26.0); METHB 0.5 % (0.0-1.5); MODALITY BI PAP; O2(CT) 13.4 mL/dL (15.0-23.0); O2HB 96.5 % (95.0-99.0); PCO2(98.6) 38 mmHg (35-45); PO2(98.6) 132 mmHg (60-100); SAMPLE BLOOD; SAO2 98.1 % (95.0-100.0); THB 9.7 g/dL (11.5-17.4); pH(98.6) 7.46 (7.35-7.45)
[2018-05-17] MEDS: HUMALOG SUBQ SCH ×4 (06:23→21:28)
[2018-05-17] MEDS: MORPHINE IV PRN ×2 (07:05→20:34)
--- NOTE | 2018-05-17 07:30 | PROGRESS NOTE ---
DATE: 05/17/2018 SUBJECTIVELY: Mr. Norton is doing fair. Oral intake is poor. No high-grade fever or chills, mild cough. No expectoration. The patient does have generalized weakness. History part is limited. The patient is using BiPAP at night. OBJECTIVE: Vital Signs: Noted. Neck: Supple. Lungs: Decreased air entry, right lower lung. Patient has complete opacification of the left lung. CVS: S1 and S2 heard. Abdomen: Soft, globular. Bowel sounds present. WORLD HISTORY TEACHER: Alert, awake able to move all 4 limbs. Wounds: Patient does have a decubitus ulcer. LABORATORY DATA DONE TODAY: Hemoglobin 9.2, hematocrit 29.6, WBC count 7.87, platelet 258,000. Blood gas results reviewed. BUN 41, creatinine 3.3. PLAN: Plan is to continue current treatment. Physical therapy for generalized strengthening. Continue rest of the treatment, supportive care. I did discuss his condition and prognosis with his yesterday on telephone. cc: Hayden Alejandre MD
--- NOTE | 2018-05-17 07:46 | Diag Imaging Result Doc PS360 ---
EXAM: CHEST-PORTABLE INDICATION: respiratory failure TECHNIQUE: One view COMPARISON: 05/16/2018 FINDINGS: The right double-lumen central catheter is in stable position. The patient is rotated toward the left. Interstitial and airspace consolidations involving both lower lung zones are essentially stable. No new consolidation is identified. Cardiac silhouette is stable. IMPRESSION: Stable chest. Electronically signed by Tremaine Barajas 05/17/2018 7:44 AM
[2018-05-17] MEDS: MUCOMYST 20% INH SCH ×2 (07:53→19:57)
--- NOTE | 2018-05-17 09:53 | PULMONOLOGY PROGRESS NOTE ---
DATE: 05/17/2018 SUBJECTIVE: The patient is arousable. He will answer questions. He has a fair cough effort. OBJECTIVE: Vital Signs: Blood pressure 131/79, heart rate 93, respiratory rate 23, oxygen saturation 94%. HEENT: Pupils are equal and reactive. Oropharynx is clear. Neck: Supple. Chest: Reveals diminished breath sounds left lung vance. Cardiac exam: S1 and S2. Abdomen: Obese and soft. Extremities: Reveal trace to 1+ edema. DIAGNOSTIC STUDIES: Chest x-ray reveals infiltrates and airspace disease in the left lung and left base without significant change. LABORATORY DATA: Arterial blood gas reveals pH 7.46, pCO2 of 38, PO2 of 132. White blood count 7.87, hemoglobin 9.2, platelet count 258,000. IMPRESSION: A 73-year-old with acute hypoxemic respiratory failure, morbid obesity, cor pulmonale, acute renal failure, diastolic heart failure, pneumonia, and recurrent atelectasis of the left lung. He remains weak, but has had some marginal improvement over the last 24 hours. RECOMMENDATIONS: 1. Continue bronchodilators and aggressive chest physical therapy. 2. Continue vancomycin for methicillin-resistant Staphylococcus aureus. 3. Consider advancing diet if he continues to improve. cc: MD Hayden Epstein MD
[2018-05-17] MEDS: APRESOLINE PO SCH ×3 (10:06→16:41)
[2018-05-17] MEDS: CELEXA PO SCH (10:06)
[2018-05-17] MEDS: HYDROPHOR OINTMENT TOP SCH ×2 (10:06→21:29)
[2018-05-17] MEDS: ASPIRIN PO SCH (10:06)
[2018-05-17] MEDS: NORVASC PO SCH (10:07)
[2018-05-17] MEDS: LOVENOX SUBQ SCH (10:07)
[2018-05-17] MEDS: SINGULAIR PO SCH (10:07)
[2018-05-17] MEDS: LOTRISONE CREAM TOP SCH ×2 (10:07→21:29)
[2018-05-17] MEDS: ZEBETA PO SCH (10:08)
[2018-05-17] MEDS: DIFLUCAN 100 MG/NS 100 MG/50 ML IVPB IV SCH (18:08)
[2018-05-17] MEDS: PROTONIX IV SCH (20:24)
[2018-05-17] MEDS: SODIUM CHLORIDE 0.9% INJ SCH (20:34)
[2018-05-18] MEDS: MORPHINE IV PRN ×2 (01:18→22:11)
[2018-05-18] MEDS: ZOSYN 2.25 GM in NS 50 ML IV SCH ×3 (01:19→17:53)
[2018-05-18] MEDS: DUONEB (A & A) INH SCH ×6 (03:15→23:11)
[2018-05-18 04:58] LABS: ALLEN TEST YES; BLOOD TYPE ARTERIAL; HCO3-(ACT) 25.7 mmoll (20.0-26.0); O2(CT) 13.1 mL/dL (15.0-23.0); PCO2(98.6) 46 mmHg (35-45); PO2(98.6) 145 mmHg (60-100); SAMPLE BLOOD; SAO2 97.9 % (95.0-100.0); THB 9.5 g/dL (11.5-17.4); pH(98.6) 7.37 (7.35-7.45)
[2018-05-18 04:59] LABS: MODALITY VENTILATOR
[2018-05-18 05:59] LABS: HEMATOCRIT 29.7 % (42.0-52.0); HEMOGLOBIN 9.2 g/dL (14.0-18.0); MCH 24.7 PG (27-31); MCV 79.6 FL (81-99); MPV 10.2 FL (7.4-10.4); RBC 3.73 XMIL (4.7-6.1); RDW 17.6 % (11.5-14.5); WBC 6.86 X1000 (4.8-10.8)
[2018-05-18] MEDS: HUMALOG SUBQ SCH ×4 (06:44→21:21)
[2018-05-18] MEDS ORDERED: TIGHT: 0.2 ML/HR FOR DIALYSIS MISC PRN (06:44)
[2018-05-18] MEDS ORDERED: NS 2,000 ML MISC PRN (06:44)
[2018-05-18] MEDS ORDERED: HEPARIN IV PRN (06:44)
--- NOTE | 2018-05-18 07:09 | Diag Imaging Result Doc PS360 ---
EXAM: CHEST-PORTABLE 05/18/2018 HISTORY: respiratory failure TECHNIQUE: AP portable at 0509 COMMENT: There is volume loss on the left. There is opacification of the retrocardiac left lower lobe. The left upper lobe is also somewhat opacified. Compared to 05/17/2018 there has been slight improvement in the right lower lobe. IMPRESSION: Atelectasis versus pneumonia on the left. Improved pulmonary edema versus pneumonia right lower lobe. Electronically signed by Terry Díaz 05/18/2018 7:06 AM
--- NOTE | 2018-05-18 07:14 | NEPHROLOGY PROGRESS NOTE ---
DATE: 05/17/2018 SUBJECTIVE: He is off the ventilator. He is asking to go home and . No cough. Denies shortness of breath. OBJECTIVE: Vital Signs: Blood pressure 125/58, heart rate 73, respirations 20. His exam was performed at approximately 8 a.m. General: He is an obese, white male, chronically ill, disheveled, no distress. Skin: Warm and dry. HEENT/Neck: Conjunctivae are pink. Neck veins are not visible. Oropharynx is dry. Heart: Irregular, but rate controlled. Lungs: Shallow. A few scattered crackles. Abdomen: Soft, nontender. Diminished bowel sounds. Extremities: The extremities have 2+ edema. No clubbing or cyanosis. IMPRESSION: Acute kidney injury, with volume overload. He will receive hemodialysis again on tomorrow. Though he does have edema, his chest is stable. Electrolytes and acid-base are acceptable. cc: MD Hayden Lui MD
[2018-05-18 07:30] LABS: ALB/GLOB RATIO 0.5; ALBUMIN 2.7 g/dL (3.5-5.0); CALCIUM 8.8 mg/dL (8.8-10.2); CREATININE 5.1 mg/dL (0.7-1.2); POTASSIUM 4.5 mmol/L (3.5-5.1); TOTAL BILIRUBIN 0.77 mg/dL (0.20-1.00); TOTAL PROTEIN 7.7 g/dL (6.3-8.3)
[2018-05-18] MEDS: MUCOMYST 20% INH SCH ×2 (07:39→19:10)
--- NOTE | 2018-05-18 07:56 | PROGRESS NOTE ---
DATE: 05/18/2018 SUBJECTIVE: Mr. Norton is doing fair. The patient is more alert and awake. Answering questions fair. At times, some confusion. Mild cough. No expectoration. No high-grade fever or chills. Oral intake is fair to poor. OBJECTIVE: Vital Signs: Noted. Neck: Supple. No JVD. Lungs: Bibasilar crepitation. Decreased air entry in both bases, especially left lung air entry is less. CVS: S1 and S2 heard. A 2/6 systolic murmur at the apex. Abdomen: Soft, globular. Bowel sounds present. LOSS PREVENTION CONSULTANT: Alert, awake, answering questions fair. IMAGING AND LABORATORY DATA: WBC count 9.2, hematocrit 29.7, WBC count 6.86, platelet count 244,000. Electrolytes: Result reviewed. Blood gas shows pH 7.37, pCO2 of 46, PO2 of 145 (this was done on BiPAP). Chest x-ray did show some improvement. PROBLEM LIST: 1. Acute on chronic respiratory failure. 2. Pneumonia. 3. Diabetes mellitus. 4. Hypertension. Overall, the patient seems to be doing better. I am planning to transfer him to step-down unit. I am going to discuss plan with his today. Overall prognosis is fair to guarded. Family is aware. cc: Hayden Alejandre MD
[2018-05-18] MEDS: SINGULAIR PO SCH (09:11)
[2018-05-18] MEDS: LOTRISONE CREAM TOP SCH ×2 (09:12→21:00)
[2018-05-18] MEDS: LOVENOX SUBQ SCH (09:12)
[2018-05-18] MEDS: ZEBETA PO SCH (09:12)
[2018-05-18] MEDS: CELEXA PO SCH (09:12)
[2018-05-18] MEDS: HYDROPHOR OINTMENT TOP SCH ×2 (09:13→21:01)
[2018-05-18] MEDS: NORVASC PO SCH (09:26)
[2018-05-18] MEDS: APRESOLINE PO SCH ×4 (09:26→18:10)
[2018-05-18] MEDS: ASPIRIN PO SCH (09:29)
--- NOTE | 2018-05-18 12:05 | NEPHROLOGY PROGRESS NOTE ---
DATE: 05/18/2018 SUBJECTIVE: He seemed a little better today. His voice is stronger and answers my questions appropriately. He states he feels better. Denies shortness of breath. He is still coughing. OBJECTIVE: Vital Signs: Blood pressure 126/56, heart rate 67, respirations 17, afebrile. General: No acute distress. Skin: Warm and dry. Conjunctivae are pink. Neck: Neck veins are not distended. Heart: Regular. No gallops. Lungs: Equal. Decreased breath sounds. No crackles. Abdomen: Soft, nontender. Bowel sounds are present. Extremities: Have 1+ edema. No clubbing or cyanosis. IMPRESSION AND PLAN: Acute kidney injury. No recovery. Dialysis again today with a goal of 2-4 L ultrafiltration. Two K bath. Electrolytes/acid base/anemia all acceptable. cc: MD Hayden Lui MD
[2018-05-18] MEDS ORDERED: VANCOMYCIN 1 GM/NS 1 GM/250 ML IVPB IV ONE (16:00)
[2018-05-18] MEDS: SODIUM CHLORIDE 0.9% INJ SCH (21:00)
[2018-05-18] MEDS: DIFLUCAN 100 MG/NS 100 MG/50 ML IVPB IV SCH (21:00)
[2018-05-18] MEDS: PROTONIX IV SCH (21:00)
[2018-05-19] MEDS ORDERED: BLISTEX MEDICATED BERRY LIP BALM TOP PRN (01:04)
[2018-05-19] MEDS: DUONEB (A & A) INH SCH ×6 (03:09→23:10)
--- NOTE | 2018-05-19 03:32 | PULMONOLOGY PROGRESS NOTE ---
DATE: 05/18/2018 SUBJECTIVE: The patient greeted me with a good morning. He is significantly stronger than yesterday. OBJECTIVE: Vital Signs: The patient has been afebrile for the last 24 hours. Blood pressure is 126/56, heart rate 67, respiratory rate 17, oxygen saturation 97% on 50% face mask. HEENT: Pupils are equal and reactive. Oropharynx is clear. Neck: Supple. Chest: Reveals continued decreased breath sounds at the left base. Cardiac: S1 and S2. Abdomen: Obese and soft. Extremities: Unchanged. LABORATORIES: Chest x-ray reveals decreased edema at the right base with continued pneumonia/atelectasis at the left base. Arterial blood gas on BiPAP reveals a pH of 7.37, pCO2 of 46, PO2 of 145. IMPRESSION: This is a 73-year-old patient with acute hypoxemic respiratory failure, morbid obesity, methicillin-resistant Staphylococcus aureus pneumonia, acute renal failure, diastolic heart failure, acute on chronic renal failure. He is weak but has had some continued marginal improvement over the last 24-48 hours. RECOMMENDATIONS: 1. Perform a swallowing trial and advance to renal diet as tolerated. 2. Continue bronchial hygiene. 3. Continue to cycle BiPAP at bedtime and as needed. 4. Continue hemodialysis per Dr. Watson/Nephrology. cc: MD Hayden Epstein MD
[2018-05-19 04:31] LABS: ALLEN TEST YES; BLOOD TYPE ARTERIAL; HCO3-(ACT) 26.5 mmoll (20.0-26.0); METHB 0.6 % (0.0-1.5); O2(CT) 14.9 mL/dL (15.0-23.0); O2HB 96.1 % (95.0-99.0); PO2(98.6) 103 mmHg (60-100); SAMPLE BLOOD; SAO2 97.7 % (95.0-100.0); THB 10.9 g/dL (11.5-17.4); pH(98.6) 7.31 (7.35-7.45)
[2018-05-19 04:37] LABS: MODALITY VENTIMASK; PCO2(98.6) 58 mmHg (35-45)
[2018-05-19 05:49] LABS: HEMATOCRIT 30.1 % (42.0-52.0); HEMOGLOBIN 9.3 g/dL (14.0-18.0); MCH 24.8 PG (27-31); MCHC 30.9 g/dL (33-37); MCV 80.3 FL (81-99); MPV 10.2 FL (7.4-10.4); RBC 3.75 XMIL (4.7-6.1); RDW 17.2 % (11.5-14.5); WBC 6.74 X1000 (4.8-10.8)
[2018-05-19] MEDS: HUMALOG SUBQ SCH ×4 (06:07→21:11)
[2018-05-19 06:39] LABS: ALB/GLOB RATIO 0.6; CALCIUM 9.1 mg/dL (8.8-10.2); POTASSIUM 4.2 mmol/L (3.5-5.1); TOTAL BILIRUBIN 0.73 mg/dL (0.20-1.00)
--- NOTE | 2018-05-19 07:37 | Diag Imaging Result Doc PS360 ---
CHEST-PORTABLE - 05/19/2018 INDICATION: respiratory failure COMPARISON: 05/18/2018 FINDINGS: Stable right-sided dialysis catheter. Lung volumes are even lower, severely low. Stable complete opacification of the left lung base. Stable cardiomegaly and pulmonary vascular congestion. No new infiltrates. IMPRESSION: Lower lung volumes but otherwise no change from prior. Electronically signed by Mirza Baker 05/19/2018 7:35 AM
[2018-05-19] MEDS: MUCOMYST 20% INH SCH ×2 (08:09→19:14)
--- NOTE | 2018-05-19 09:11 | PROGRESS NOTE ---
DATE: 05/19/2018 SUBJECTIVE: Mr. oNrton is feeling fair. Patient does have, at times, confusion, disorientation, and agitation, trying to pull his IV and central line. The patient is on BiPAP at night. His blood gas results reviewed. The patient is still on broad-spectrum antibiotics. He denied any chest pain. His history part was limited. OBJECTIVE: Vital Signs: Noted. Neck: Supple. No JVD. Lungs: Bibasilar crepitation. Decreased air entry, left lung. CVS: S1 and S2 heard. Abdomen: Soft, globular. Bowel sounds present. MANAGER MEETING: Alert, awake, and able to move all 4 limbs. LABORATORY DATA: Lab data done today: Hemoglobin 9.3, hematocrit 30.1, WBC count 6.74, platelet count 248,000. Blood gas results reviewed. BUN 46. Creatinine 4. ASSESSMENT: 1. The patient does have [id number] kidney disease, getting dialysis. 2. Chronic respiratory failure. 3. Anemia of chronic disease. 4. Diabetes mellitus. 5. Hypertension. 6. Possible pneumonia. PLAN: We are going to continue antibiotics. His medication noted. Continue current treatment. Close observation. I am going to discuss with Dr. Delgado about further planning. cc: Hayden Alejandre MD
[2018-05-19] MEDS: ZOSYN 2.25 GM in NS 50 ML IV SCH ×2 (10:51→17:40)
[2018-05-19] MEDS: SINGULAIR PO SCH (10:52)
[2018-05-19] MEDS: ASPIRIN PO SCH (10:52)
[2018-05-19] MEDS: CELEXA PO SCH (10:52)
[2018-05-19] MEDS: NORVASC PO SCH (10:52)
[2018-05-19] MEDS: ZEBETA PO SCH (10:52)
[2018-05-19] MEDS: APRESOLINE PO SCH ×3 (10:53→21:16)
[2018-05-19] MEDS: LOVENOX SUBQ SCH (10:53)
[2018-05-19] MEDS: HYDROPHOR OINTMENT TOP SCH ×2 (13:00→23:37)
[2018-05-19] MEDS: PROTONIX IV SCH (21:17)
[2018-05-19] MEDS: DIFLUCAN 100 MG/NS 100 MG/50 ML IVPB IV SCH (21:17)
[2018-05-20] MEDS: ZOSYN 2.25 GM in NS 50 ML IV SCH ×3 (01:43→16:38)
--- NOTE | 2018-05-20 02:03 | NEPHROLOGY PROGRESS NOTE ---
DATE: 05/19/2018 SUBJECTIVE: He is less short of breath. No new complaints. OBJECTIVE: Vital Signs: Blood pressure 118/44, heart rate 59, respirations 17, afebrile. General: No acute distress. Skin: Warm and dry. Conjunctivae are pink. Neck: Neck veins are not visible. Heart: Regular. No gallops. Lungs: Equal, shallow. No crackles. Abdomen: Soft, nontender. Bowel sounds present. Extremities: 1+ edema. No clubbing or cyanosis. IMPRESSION: Acute kidney injury. Perhaps some improvement in his urine output. No dialysis today. Electrolytes, acid-base, and volume status all acceptable. cc: MD Hayden Lui MD
[2018-05-20] MEDS: DUONEB (A & A) INH SCH ×6 (03:30→23:04)
[2018-05-20 05:06] LABS: HEMATOCRIT 29.7 % (42.0-52.0); HEMOGLOBIN 9.2 g/dL (14.0-18.0); MCH 24.8 PG (27-31); MCV 80.1 FL (81-99); MPV 10.1 FL (7.4-10.4); RBC 3.71 XMIL (4.7-6.1); RDW 17.5 % (11.5-14.5); WBC 5.74 X1000 (4.8-10.8)
[2018-05-20 05:29] LABS: ALB/GLOB RATIO 0.5; ALBUMIN 2.8 g/dL (3.5-5.0); CALCIUM 8.9 mg/dL (8.8-10.2); CREATININE 5.2 mg/dL (0.7-1.2); POTASSIUM 4.3 mmol/L (3.5-5.1); TOTAL BILIRUBIN 0.81 mg/dL (0.20-1.00); TOTAL PROTEIN 7.9 g/dL (6.3-8.3)
[2018-05-20 05:47] LABS: ALLEN TEST YES; BLOOD TYPE ARTERIAL; HCO3-(ACT) 25.7 mmoll (20.0-26.0); METHB 0.7 % (0.0-1.5); O2(CT) 7.1 mL/dL (15.0-23.0); O2HB 96.6 % (95.0-99.0); PO2(98.6) 91 mmHg (60-100); SAMPLE BLOOD; THB 5.1 g/dL (11.5-17.4); pH(98.6) 7.33 (7.35-7.45)
[2018-05-20 05:49] LABS: MODALITY VENTIMASK; PCO2(98.6) 51 mmHg (35-45)
[2018-05-20] MEDS: HUMALOG SUBQ SCH ×4 (06:33→20:34)
[2018-05-20] MEDS: MUCOMYST 20% INH SCH ×2 (07:55→19:35)
--- NOTE | 2018-05-20 08:27 | Diag Imaging Result Doc PS360 ---
EXAM: CHEST-PORTABLE INDICATION: respiratory failure TECHNIQUE: One view COMPARISON: 05/19/2018 FINDINGS: The right Vas-Cath is in stable position. At the lung volumes remain low. There has been interval complete opacification of the left hemithorax pulmonary venous congestion is approximately stable. The cardiac silhouette is partially obscured by the opacification on the left. Otherwise, it is grossly stable. IMPRESSION: Interval complete opacification of the left hemithorax. Right lung is essentially stable. Electronically signed by Tremaine Barajas 05/20/2018 8:25 AM
[2018-05-20] MEDS: NORVASC PO SCH (08:28)
[2018-05-20] MEDS: ASPIRIN PO SCH (08:28)
[2018-05-20] MEDS: ZEBETA PO SCH (08:28)
[2018-05-20] MEDS: SINGULAIR PO SCH (08:28)
[2018-05-20] MEDS: LOVENOX SUBQ SCH (08:28)
[2018-05-20] MEDS: HYDROPHOR OINTMENT TOP SCH ×2 (08:28→20:44)
[2018-05-20] MEDS: APRESOLINE PO SCH ×3 (08:28→20:43)
[2018-05-20] MEDS: CELEXA PO SCH (08:28)
[2018-05-20] MEDS ORDERED: NS 2,000 ML MISC PRN (09:43)
[2018-05-20] MEDS ORDERED: TIGHT: 0.2 ML/HR FOR DIALYSIS MISC PRN (09:43)
[2018-05-20] MEDS ORDERED: HEPARIN IV PRN (09:43)
[2018-05-20] MEDS: MORPHINE IV PRN ×2 (13:01→23:54)
--- NOTE | 2018-05-20 15:25 | PROGRESS NOTE ---
DATE: 05/20/2018 SUBJECTIVE: A 73-year-old white gentleman, patient of Dr. Alejandre, admitted on 04/29/2018. He was admitted in [place] and subsequently transferred to [facility]. Initial diagnosis was congestive heart failure. PAST MEDICAL HISTORY: Reviewed. PAST SURGICAL HISTORY: Reviewed. MEDICINES: Reviewed. ALLERGIES: Not known. The patient was seen in dialysis. He is getting dialysis this afternoon. He is asking some pain meds.He looks comfortable. He is on Venti mask. No complaints. PHYSICAL EXAMINATION: He is heavy set. On exam, temperature is 97, pulse is 60 , blood pressure 122/44 on Ventimask 50%. Decreased breath sounds on the left side. Distant heart sounds. Belly soft, nontender. He had a Vas-Cath present on the right side of the neck. Kessler was placed. Extremities: Chronic dry skin. Able to move all the extremities. LABORATORY DATA: CBC: White cell count 5.7, hematocrit 29, platelets 248,000. ABG: pH is 7.33, pCO2 of 51, PO2 of 91 on 50% Ventimask. SMA-7: Sodium 139, potassium 4.3, chloride 98. BUN 62, creatinine 5.2. LFTs were normal. Chest x-ray: Left side is completely opacified. Vas-Cath present on the right side of the neck. IV vancomycin as well as IV Zosyn. If no better, consider CT of the chest on the left lung. Based on that, further recommendations will be followed. ASSESSMENT AND PLAN: 1. Acute respiratory failure with the left side completely mayela out. Basically endobronchial obstruction or fluid. If no improvement, get a CT of the chest. Continue on BiPAP and Dr. Kumar is on-call this weekend. He is not decompensating. 2. End-stage kidney disease, on dialysis. 3. Sputum cultures showing Staph aureus and Loly albicans. Treating as methicillin-resistant Staphylococcus aureus pneumonia with superimposed Candidiasis. Currently, he is receiving IV vancomycin and also Diflucan. 4. Living will, DNR. 5. Hypertension. On Norvasc 5 mg daily. 6. Zebeta 5 mg daily. 7. Depression; on Celexa 40 mg daily. 8. Deep venous thrombosis prophylaxis with Lovenox 30 subcu Q 24 hours. 9. Diabetes, on insulin sliding scale with insulin protocol. Level of Documentation: 35 minutes. cc: MD Hayden Hankins MD MTDD
--- NOTE | 2018-05-20 15:42 | NEPHROLOGY PROGRESS NOTE ---
DATE: 05/20/2018 SUBJECTIVE: He states he is "alright." He is still coughing. Some positive sputum production. OBJECTIVE: Blood pressure 122/44, heart rate 60, respiratory rate 16 and afebrile. General: No acute distress. Skin: Warm and dry. HEENT: Conjunctivae are pink. Neck: Neck veins are not appreciated. Heart: Regular. Lungs: Equal with rhonchi. Abdomen: Soft, obese and nontender. Bowel sounds present. Extremities: 1+ edema. No clubbing or cyanosis. IMPRESSION: Acute kidney injury. No recovery though his urine output has modestly improved, 400 mL in the last 24 hours. Dialysis today with a goal of 2 L. Ultrafiltration as his blood pressure allows. Electrolytes, acid base, anemia, hypertension all acceptable. No changes. cc: MD Hayden Lui MD
[2018-05-20] MEDS ORDERED: VANCOMYCIN 1 GM/NS 1 GM/250 ML IVPB IV ONE (17:00)
[2018-05-20] MEDS: DIFLUCAN 100 MG/NS 100 MG/50 ML IVPB IV SCH (20:43)
[2018-05-20] MEDS: PROTONIX IV SCH (20:43)
[2018-05-21] MEDS: ZOSYN 2.25 GM in NS 50 ML IV SCH ×3 (01:18→17:24)
[2018-05-21] MEDS: DUONEB (A & A) INH SCH ×6 (02:54→23:41)
[2018-05-21] MEDS: MORPHINE IV PRN ×3 (03:41→20:49)
[2018-05-21 05:49] LABS: ALLEN TEST YES; BE 1.8 mmoll (-3.0-3.0); BLOOD TYPE ARTERIAL; HCO3-(ACT) 26.3 mmoll (20.0-26.0); METHB 0.4 % (0.0-1.5); O2(CT) 13.1 mL/dL (15.0-23.0); O2HB 95.3 % (95.0-99.0); PO2(98.6) 85 mmHg (60-100); SAMPLE BLOOD; SAO2 96.8 % (95.0-100.0); THB 9.7 g/dL (11.5-17.4); pH(98.6) 7.29 (7.35-7.45)
[2018-05-21 05:51] LABS: MODALITY VENTIMASK; PCO2(98.6) 61 mmHg (35-45)
[2018-05-21 05:52] LABS: BASO# 0.08 X1000 (0.0-0.2); BASO% 1.2 % (0.0-0.8); EOS# 0.32 X1000 (0.0-0.7); EOS% 4.9 % (0.0-10.0); HEMATOCRIT 30.3 % (42.0-52.0); HEMOGLOBIN 9.2 g/dL (14.0-18.0); IMM GRAN# 0.04 X1000 (0.0-0.04); IMM GRAN% 0.6 % (0.0-0.5); LYMPH# 0.78 X1000 (1.2-3.4); MCH 24.3 PG (27-31); MCHC 30.4 g/dL (33-37); MCV 80.2 FL (81-99); MONO# 0.64 X1000 (0.11-0.59); MONO% 9.8 % (1.7-9.3); MPV 10.3 FL (7.4-10.4); NEUT# 4.66 X1000 (1.4-6.5); NEUT% 71.5 % (42.2-75.2); PLT 275 X1000 (130-400); RBC 3.78 XMIL (4.7-6.1); WBC 6.52 X1000 (4.8-10.8)
[2018-05-21 06:02] LABS: ALB/GLOB RATIO 0.6; CALCIUM 8.9 mg/dL (8.8-10.2); CREATININE 4.5 mg/dL (0.7-1.2); TOTAL BILIRUBIN 0.76 mg/dL (0.20-1.00)
[2018-05-21] MEDS: HUMALOG SUBQ SCH ×4 (06:28→20:57)
--- NOTE | 2018-05-21 08:19 | Diag Imaging Result Doc PS360 ---
EXAM: CHEST-PORTABLE INDICATION: respiratory failure TECHNIQUE: One view COMPARISON: 05/20/2018 FINDINGS: Right central line is in stable position. There is stable complete opacification of the left hemithorax. Pulmonary venous congestion is approximately stable. No new consolidation is identified. Cardiac silhouette is stable. IMPRESSION: Grossly stable chest. Electronically signed by Tremaine Barajas 05/21/2018 8:17 AM
[2018-05-21] MEDS: MUCOMYST 20% INH SCH ×2 (08:25→19:10)
[2018-05-21] MEDS: SINGULAIR PO SCH (09:28)
[2018-05-21] MEDS: LOVENOX SUBQ SCH (09:28)
[2018-05-21] MEDS: ZEBETA PO SCH (09:28)
[2018-05-21] MEDS: APRESOLINE PO SCH ×3 (09:29→20:35)
[2018-05-21] MEDS: HYDROPHOR OINTMENT TOP SCH ×2 (09:29→23:40)
[2018-05-21] MEDS: ASPIRIN PO SCH (09:29)
[2018-05-21] MEDS: NORVASC PO SCH (09:29)
[2018-05-21] MEDS: CELEXA PO SCH (09:29)
--- NOTE | 2018-05-21 15:07 | PROGRESS NOTE ---
DATE: 05/21/2018 SUBJECTIVE: The patient had dialysis yesterday. Apparently, he is basically sleeping, not asking for any pain medicine. He is on Ventimask, off on Ventimask. Upon questioning no complaints, no obvious shortness of breath. EXAMINATION: General: He is heavy set. Vital Signs: Temp is 97.5, pulse is 64, blood pressure 120/55, on Ventimask 96%. HEENT: Within normal limits. Decreased breath sounds on the left side. Heart: Distant heart sounds. Abdomen: Belly is soft, nontender. Extremities: Very dry skin. LABORATORY: Chest x-ray: Right central line is stable in position. Complete opacification of left hemithorax. ASSESSMENT AND PLAN: 1. Acute respiratory failure with left side completely opacified on Ventimask. Patient is not in obvious distress. Discussed with Dr. Kumar. He wants to do chest physiotherapy, Dr. Delgado did a bronchoscopy. If not better, consider CT of the chest. Will defer the treatment with Dr. Delgado. 2. End-stage kidney disease, on dialysis. 3. Continue current treatment for Staph aureus and Loly albicans. 4. Living will, DNR. 5. Diabetes is stable. Continue present treatment. LEVEL OF DOCUMENTATION: 25 minutes. cc: MD Hayden Hankins MD
[2018-05-21] MEDS: DIFLUCAN 100 MG/NS 100 MG/50 ML IVPB IV SCH (20:35)
[2018-05-21] MEDS: PROTONIX IV SCH (20:35)
[2018-05-22] MEDS: MORPHINE IV PRN ×5 (00:35→18:37)
[2018-05-22] MEDS: ZOSYN 2.25 GM in NS 50 ML IV SCH ×3 (00:36→16:58)
[2018-05-22] MEDS: DUONEB (A & A) INH SCH ×6 (03:15→23:55)
[2018-05-22 05:23] LABS: ALLEN TEST YES; BE 1.5 mmoll (-3.0-3.0); BLOOD TYPE ARTERIAL; HCO3-(ACT) 26.1 mmoll (20.0-26.0); METHB 0.4 % (0.0-1.5); O2(CT) 7.9 mL/dL (15.0-23.0); O2HB 95.9 % (95.0-99.0); PO2(98.6) 97 mmHg (60-100); SAMPLE BLOOD; SAO2 97.4 % (95.0-100.0); THB 5.7 g/dL (11.5-17.4); pH(98.6) 7.26 (7.35-7.45)
[2018-05-22 05:32] LABS: MODALITY VENTIMASK; PCO2(98.6) 64 mmHg (35-45)
[2018-05-22] MEDS: HUMALOG SUBQ SCH ×4 (06:00→21:04)
[2018-05-22 06:13] LABS: BASO# 0.07 X1000 (0.0-0.2); BASO% 1.1 % (0.0-0.8); EOS# 0.45 X1000 (0.0-0.7); EOS% 6.8 % (0.0-10.0); HEMATOCRIT 32.8 % (42.0-52.0); HEMOGLOBIN 9.8 g/dL (14.0-18.0); IMM GRAN# 0.04 X1000 (0.0-0.04); IMM GRAN% 0.6 % (0.0-0.5); LYMPH% 16.6 % (20.5-51.1); MCH 24.3 PG (27-31); MCHC 29.9 g/dL (33-37); MCV 81.2 FL (81-99); MONO# 0.57 X1000 (0.11-0.59); MONO% 8.6 % (1.7-9.3); MPV 10.3 FL (7.4-10.4); NEUT# 4.39 X1000 (1.4-6.5); NEUT% 66.3 % (42.2-75.2); PLT 264 X1000 (130-400); RBC 4.04 XMIL (4.7-6.1); RDW 18.3 % (11.5-14.5); WBC 6.62 X1000 (4.8-10.8)
[2018-05-22 06:28] LABS: ALB/GLOB RATIO 0.6; ALBUMIN 3.1 g/dL (3.5-5.0); CALCIUM 9.7 mg/dL (8.8-10.2); CREATININE 5.8 mg/dL (0.7-1.2); POTASSIUM 4.6 mmol/L (3.5-5.1); TOTAL BILIRUBIN 0.74 mg/dL (0.20-1.00); TOTAL PROTEIN 8.4 g/dL (6.3-8.3)
[2018-05-22] MEDS ORDERED: MILK OF MAGNESIA PO ONE (06:36)
[2018-05-22] MEDS ORDERED: DULCOLAX PR ONE (06:37)
--- NOTE | 2018-05-22 06:58 | PROGRESS NOTE ---
DATE: 05/22/2018 SUBJECTIVE: Mr. Norton is doing fair. At times, patient complaining of generalized pain. No nausea or vomiting. Oral intake is fair. At times, patient tries to pull his IV and Ventimask. We had to put restraint. Nurses reported did not have bowel movement for many days. He seems to have abdominal cramps. I am going to get abdominal x-ray. Start him on bowel regimen. History part is limited. No high-grade fever or chills. The patient is on BiPAP at night. OBJECTIVE: Vital Signs: Vital signs reviewed. Neck: Supple. No JVD. Lungs: Bibasilar crepitation. Heart: S1 and S2 heard. A 2-3/6 systolic murmur at the apex. Abdomen: Soft, globular. Bowel sounds present. AUDIO VISUAL TECH: Alert, awake, able to move all 4 limbs. IMAGING: Chest x-ray done yesterday did reveal stable chest. PROBLEM LIST: 1. Respiratory failure, possible pneumonia. 2. Acute on chronic kidney disease on hemodialysis. 3. Decubitus ulcer. The patient is being followed up by a wound care nurse. 4. Constipation. 5. Diabetes mellitus. 6. Hypertension. PLAN: Continue current treatment. Prepare patient for possible discharge to rehab. Continue rest of the treatment. I discontinued his Diflucan. I am going to change his Zosyn to Augmentin. Continue rest of the treatment. Social Service consult for possible placement. cc: Hadyen Alejandre MD
--- NOTE | 2018-05-22 07:02 | Diag Imaging Result Doc PS360 ---
EXAM: CHEST-PORTABLE 05/22/2018 HISTORY: respiratory failure TECHNIQUE: AP portable at 0557 COMMENT: There has been marked improvement in the atelectasis of the left lung present on 05/21/2018. There is some blunting of the left costophrenic angle which may be due to fluid or atelectasis. The right lung remain stable. IMPRESSION: Improved left-sided atelectasis. Electronically signed by Terry Díaz 05/22/2018 6:59 AM
[2018-05-22] MEDS: MUCOMYST 20% INH SCH ×2 (07:16→19:40)
--- NOTE | 2018-05-22 07:59 | Diag Imaging Result Doc PS360 ---
EXAM: ABDOMEN FLAT/UPRIGHT 05/22/2018 HISTORY: pain TECHNIQUE: Flat and upright portable at 0743 COMMENT: There is stool throughout the colon. There are multiple calcified gallstones in the gallbladder. 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 The small bowel and stomach are not distended and there is no evidence organomegaly or mass. The pelvis is not included on the radiographs. IMPRESSION: Constipation. Cholelithiasis. Electronically signed by Terry Díaz 05/22/2018 7:57 AM
[2018-05-22] MEDS: SINGULAIR PO SCH (10:31)
[2018-05-22] MEDS: CELEXA PO SCH (10:32)
[2018-05-22] MEDS: ASPIRIN PO SCH (10:32)
[2018-05-22] MEDS: APRESOLINE PO SCH ×3 (10:32→21:04)
[2018-05-22] MEDS: LOVENOX SUBQ SCH (10:33)
[2018-05-22] MEDS: ZEBETA PO SCH (10:34)
[2018-05-22] MEDS: NORVASC PO SCH (10:34)
[2018-05-22] MEDS: HYDROPHOR OINTMENT TOP SCH ×2 (10:36→21:05)
--- NOTE | 2018-05-22 12:52 | NEPHROLOGY PROGRESS NOTE ---
DATE: 05/22/2018 SUBJECTIVE: Mr. Norton is resting quietly in bed. He is very lethargic today. No acute distress. OBJECTIVE: Vital Signs: Temperature 97.5 degrees, blood pressure 120/50, heart rate 84,respirations 13. He is on 15 L Venti mask, last recorded saturation is 100%. Intake and output he has had 200 in, 130 out with need for dialysis. LABS: Sodium is 140, potassium 4.6, chloride 97, CO2 26, BUN 62, creatinine 5.8 , glucose 95. Anion gap is 17, calcium 9.7, albumin 3.1. White count 6.62, hemoglobin 9.8, hematocrit 32.8, platelet count 264,000. PHYSICAL EXAMINATION: General: This is a 73-year-old white male. He is currently resting quietly in bed. He is a DNR. He has no complaints, though he appears chronically ill. Skin: Warm and dry. HEENT: Normocephalic, atraumatic. Conjunctiva is pale pink he has SALONI. Mucous membranes are dry. Neck: Supple, trachea midline. No evidence of JVD. Cardiovascular: He is regular rate and rhythm. He is without murmur or gallop. Lungs: Clear to auscultation bilaterally equal excursion on O2. Abdomen: Large, round, soft, nontender. Positive bowel sounds. Genitourinary: Not inspected. Patient has had minimal void with dialysis assist. Extremities: Have 1+ edema. Neurological: Somnolent. ASSESSMENT AND PLAN: 1. Acute kidney injury without recovery. Patient has a Vas-Cath to the right IJ. Secondary to a discussion with his primary care physician in regards with possible discharge early this week, we will request Dr. Dewey to exchange his Vas-Cath for a dialysis tunneled catheter. We will attempt to get placement for the patient at a dialysis unit once rehab is established. 2. Electrolytes and acid-base balance and anemia. These are all acceptable. I would like to thank you for allowing us to follow with this patient. Dictated by CAROLINE Charles for Benito Watson MD Face to face encounter, data reviewed, discussed with Ever Dallas on 05/22/18. I agree with the above assessment and plan of care. cc: CAROLINE Charles MD Hayden K. Vakharia, MD [facility] C[facility]ERSondra
[2018-05-22] MEDS: PROTONIX IV SCH (21:05)
--- NOTE | 2018-05-22 21:23 | PULMONOLOGY PROGRESS NOTE ---
DATE: 05/22/2018 SUBJECTIVE: The patient was sleeping upon arrival. With stimulation he does arouse. He denies pain. He has a fair cough effort. He has limited p.o. intake. OBJECTIVE: The patient has been afebrile for the last 24 hours. Blood pressure 119/55, heart rate 67, respiratory rate 18, oxygen saturation 97%.HEENT: Pupils are equal and reactive. Oropharynx is clear. Neck: Is supple. Chest: Reveals decreased breath sounds left base. Cardiac exam: S1-S2. Abdomen: Soft without hepatosplenomegaly. Extremities: Without edema. LABORATORIES: Chest x-ray reveals significant improvement in the left lung compared to yesterday. Arterial blood gas on Ventimask reveals pH 7.26, pCO2 of 64, PO2 of 97. IMPRESSION: 73-year-old with morbid obesity, acute hypoxemic respiratory failure, methicillin- resistant Staph aureus pneumonia, acute renal failure, diastolic heart failure. The patient's left lung is intermittently atelectatic but looks significantly improved today. His p.o. intake remains marginal. His performance status remains marginal. RECOMMENDATIONS: 1. Continue bronchial hygiene. 2. Cycle BiPAP at bedtime and p.r.n. 3. Hemodialysis under the direction of Nephrology. 4. Encourage patient to be mobilized to help with bronchial hygiene. 5. Overall prognosis is guarded and his end of life wishes have been addressed by Dr. Alejandre. cc: MD Hayden Epstein MD
--- NOTE | 2018-05-22 21:25 | GENERAL SURGERY PROGRESS NOTE ---
DATE: 05/22/2018 I placed a Vas-Cath in Mr. Norton while he was in the unit for acute dialysis. It appears that he is switched from acute to chronic and I have been asked to place a tunneled catheter. On exam today Mr. Norton is confused and does not understand what I am discussing. I can proceed tomorrow and if we get approval from his family or whoever has power of title attorney, on him. So we will tentatively schedule based on permission. cc: MD Hayden Cintron MD
[2018-05-23] MEDS: ZOSYN 2.25 GM in NS 50 ML IV SCH ×5 (00:14→17:46)
[2018-05-23] MEDS: DUONEB (A & A) INH SCH ×5 (03:26→23:08)
[2018-05-23 05:49] LABS: ALLEN TEST YES; BE -2.2 mmoll (-3.0-3.0); BLOOD TYPE ARTERIAL; HCO3-(ACT) 23.2 mmoll (20.0-26.0); O2(CT) 12.2 mL/dL (15.0-23.0); O2HB 95.4 % (95.0-99.0); PO2(98.6) 93 mmHg (60-100); SAMPLE BLOOD; pH(98.6) 7.29 (7.35-7.45)
[2018-05-23 05:51] LABS: MODALITY VENTIMASK; PCO2(98.6) 51 mmHg (35-45)
[2018-05-23 05:57] LABS: BASO# 0.06 X1000 (0.0-0.2); BASO% 0.8 % (0.0-0.8); EOS# 0.37 X1000 (0.0-0.7); EOS% 4.7 % (0.0-10.0); HEMATOCRIT 30.9 % (42.0-52.0); HEMOGLOBIN 9.3 g/dL (14.0-18.0); IMM GRAN# 0.02 X1000 (0.0-0.04); IMM GRAN% 0.3 % (0.0-0.5); LYMPH# 1.06 X1000 (1.2-3.4); LYMPH% 13.4 % (20.5-51.1); MCH 24.4 PG (27-31); MCHC 30.1 g/dL (33-37); MCV 81.1 FL (81-99); MONO# 0.57 X1000 (0.11-0.59); MONO% 7.2 % (1.7-9.3); MPV 10.1 FL (7.4-10.4); NEUT# 5.81 X1000 (1.4-6.5); NEUT% 73.6 % (42.2-75.2); PLT 234 X1000 (130-400); RBC 3.81 XMIL (4.7-6.1); RDW 18.3 % (11.5-14.5); WBC 7.89 X1000 (4.8-10.8)
[2018-05-23] MEDS: HUMALOG SUBQ SCH ×4 (06:11→21:22)
[2018-05-23 06:25] LABS: ALB/GLOB RATIO 0.5; ALBUMIN 2.8 g/dL (3.5-5.0); CALCIUM 9.6 mg/dL (8.8-10.2); CREATININE 6.9 mg/dL (0.7-1.2); POTASSIUM 4.7 mmol/L (3.5-5.1); TOTAL BILIRUBIN 0.89 mg/dL (0.20-1.00)
--- NOTE | 2018-05-23 06:37 | Diag Imaging Result Doc PS360 ---
EXAM: CHEST-PORTABLE HISTORY: respiratory failure TECHNIQUE: Portable chest single view COMPARISON: 05/22/2018 FINDINGS: No change in the right jugular line. The heart is enlarged. There is a small to moderate-sized left pleural effusion. Vascular distention persists. There is atelectasis or infiltrates in the lower left lung. IMPRESSION: No interval improvement. Electronically signed by Bobo Jennings 05/23/2018 6:35 AM
[2018-05-23] MEDS ORDERED: LINZESS PO ONE (06:54)
--- NOTE | 2018-05-23 07:14 | PROGRESS NOTE ---
DATE: 05/23/2018 SUBJECTIVE: Mr. Norton is doing fair. The patient does have confusion, at times agitation, trying to pull his oxygen mask and IV line, trying to get out of bed. We had to put on restraints. I am going to start him on small dose of Seroquel. I did discuss his condition and plan with his on the telephone yesterday. The patient is going for tunnel catheter today for dialysis. OBJECTIVE: His vital signs noted. Lungs: Bibasilar crepitations. Heart S1 and S2 heard. Abdomen soft, globular. Bowel sounds present. Extremities: No cyanosis, clubbing. Leg swelling improved. SPEECH THERAPY DIRECTOR: Alert, awake, able to move all 4 limbs but the patient does have confusion. Lab data done today: Hemoglobin 9.3, hematocrit 30.9, WBC count 7.89, platelet count 234,000. Blood gas results reviewed. Electrolytes noted. IMPRESSION: 1. Patient does have respiratory failure methicillin-resistant Staph aureus pneumonia. 2. Renal failure on hemodialysis. 3. Diastolic heart failure. 4. Diabetes mellitus. PLAN: Continue current treatment. Social Service consult for placement. Overall prognosis fair to guarded. Family is aware of the prognosis. cc: Hayden Alejandre MD
[2018-05-23] MEDS: MORPHINE IV PRN (07:32)
[2018-05-23] MEDS: MUCOMYST 20% INH SCH ×2 (07:58→19:54)
[2018-05-23] MEDS: SINGULAIR PO SCH (08:46)
[2018-05-23] MEDS: SEROQUEL PO SCH ×2 (08:46→21:22)
[2018-05-23] MEDS: NORVASC PO SCH (08:46)
[2018-05-23] MEDS: APRESOLINE PO SCH ×3 (08:46→21:53)
[2018-05-23] MEDS: ASPIRIN PO SCH (08:47)
[2018-05-23] MEDS: CELEXA PO SCH (08:47)
[2018-05-23] MEDS: LOVENOX SUBQ SCH (08:47)
[2018-05-23] MEDS: ZEBETA PO SCH (08:47)
[2018-05-23] MEDS: HYDROPHOR OINTMENT TOP SCH ×2 (09:33→23:18)
[2018-05-23] MEDS ORDERED: XYLOCAINE 1%/EPI 1:100,000 ONE (15:19)
[2018-05-23] MEDS ORDERED: FENTANYL ONE (15:19)
[2018-05-23] MEDS ORDERED: HEPARIN ONE ×2 (15:19→15:20)
[2018-05-23] MEDS ORDERED: NS 250 ML ONE (15:20)
[2018-05-23] MEDS ORDERED: KETAMINE ONE (15:20)
[2018-05-23] MEDS: PROTONIX IV SCH (21:35)
--- NOTE | 2018-05-23 23:08 | NEPHROLOGY PROGRESS NOTE ---
DATE: 05/23/2018 TIME SEEN: 0808 hours. SUBJECTIVE: Mr. Norton is confused today. He is attempting to get out of bed. OBJECTIVE: Most recent vital signs: Temperature 98 degrees, blood pressure 113 /94, heart rate 64, respirations 21. He is currently on 5 L nasal cannula. Last recorded saturation 100%. He has had 510 in, he has had 0 recorded out. LABORATORIES: Sodium 140, potassium 4.7, chloride 98, CO2 of 22, BUN 76, creatinine 6.9, glucose 95, anion gap is 20, calcium 9.6, albumin 2.8. White count 7.89, hemoglobin 9.3 , hematocrit 30.9, platelet count 234,000. ABGs: pH 7.29, CO2 of 51, pO2 of 93, bicarb 23.2 on 50 % Ventimask 5 L. PHYSICAL EXAMINATION: General: This is a 73-year-old white male who is currently resting quietly in bed. He is slightly agitated secondary to his confusion. Skin: Warm and dry. HEENT: Normocephalic, atraumatic. Conjunctivae are pale pink. He has SALONI. Mucous membranes are dry. Neck: Supple. Trachea midline. Unable to determine JVD. Cardiovascular: Regular rate and rhythm. He is without murmur or gallop. Lungs: Clear to auscultation bilaterally. Equal excursion on O2. Abdomen: Large, round, soft, nontender. Positive bowel sounds. Genitourinary: Not inspected. He has minimal void with dialysis assist. Extremities: Have 1+ lower extremity edema. Neurological: As mentioned above. ASSESSMENT AND PLAN: 1. Acute kidney injury without recovery. No urine output recorded. The patient has Vas-Cath to the right IJ. We have requested a dialysis tunnel catheter to be exchanged for his Vas-Cath in the next [address] Dewey has been consulted. We will plan for dialysis in the a.m. 2. Electrolytes, acid-base balance, and anemia. These all remain fairly acceptable. I would to thank you for allowing us to follow with this patient. Dictated by CAROLINE Charles for Benito Watson MD Face to face encounter, data reviewed, discussed with Christa Dallas on 05/23/18. I agree with the above assessment and plan of care. cc: CAROLINE Charles MD Bharat K. Vakharia, MD MTDD
[2018-05-24] MEDS: ZOSYN 2.25 GM in NS 50 ML IV SCH ×4 (00:14→23:12)
--- NOTE | 2018-05-24 00:52 | OPERATIVE NOTE ---
PROCEDURE DATE: 05/23/2018 PROCEDURE PERFORMED: 1. Placement of left internal jugular vein tunneled dialysis catheter (24 cm precurved) with ultrasound and fluoroscopic guidance. 2. Removal of right internal jugular vein Vas-Cath. SURGEON: Dr. Dewey. OCCUPATIONAL THERAPY AIDES TEACHER: Rita. PREOPERATIVE DIAGNOSIS: Chronic kidney disease 5. POSTOP DIAGNOSIS: Chronic kidney disease 5. DESCRIPTION OF PROCEDURE: Satisfactory monitoring anesthesia care was established. IV sedation accomplished. The left upper anterior chest and neck were prepped and draped in a sterile fashion. We imaged the left side of the neck and identified the internal jugular vein. It was somewhat flattened. We anesthetized the skin, made a stab incision and accessed the vein and initial attempt we could not pass the guidewire. We re-stuck it x2 and the final time we got into the vein and were able to pass the guidewire for a ways. We then used a dilator and passed it over the wire and when we did so the wire advanced on into the innominate vein. So we had already decided about a 24 cm precurved so we anesthetized the skin in the left subclavian area, made a stab incision there and then tunneled the catheter from the subclavian incision the neck incision. We went to the next size dilator over the wire and then passed the dilator and introducer sheath over the wire and removed the dilator and guidewire and introduced the hemodialysis catheter through the sheath into the innominate vein. We peeled the sheath away. The catheter was appropriate position and not kinked. We were able to aspirate and irrigate easily using some Hep- Lock solution. We then secured the flange to the skin with nylon stitches, we closed the skin of the neck incision with a 4-0 Polysorb subcuticular stitch. We then flushed each lumen with strong heparin that is 5000 units/mL, that is 1.9 mL in 1 lumen and 1.9 mL in the other lumen. We then used Telfa and OpSite over the neck incision well as the exit site of the upper anterior chest. We then exposed the right side of the neck and I cut the stitches and removed Vas-Cath. We held pressure until hemostasis was achieved and a sterile dressing was applied. He tolerated it well. Was sent to the recovery room in satisfactory condition. cc: Heriberto MD Hayden Armijo MD
[2018-05-24] MEDS: MORPHINE IV PRN ×3 (01:01→10:46)
[2018-05-24] MEDS: SEROQUEL PO SCH (02:55)
--- NOTE | 2018-05-24 03:19 | PULMONOLOGY PROGRESS NOTE ---
DATE: 05/23/2018 SUBJECTIVE: The patient was agitated earlier today and by report was yelling at the nursing staff and trying to remove his oxygen and his IV lines. He has been initiated on low-dose Seroquel. He is currently sedated. He is arousable. OBJECTIVE: Vital Signs: Blood pressure 100/49, heart rate 59, respiratory rate 18, oxygen saturation 96% on supplemental oxygen. HEENT: Pupils are equal and reactive. Oropharynx is clear. Neck: Supple. Chest: Reveals diminished breath sounds, left base. Cardiac Examination: S1-S2. Abdomen: Soft and obese. Extremities: Reveal trace edema. Laboratories: Arterial blood gas reveals a pH of 7.29, pCO2 of 51, PO2 of 93 on 50% Ventimask. Sodium 140, potassium 4.7, chloride 98, bicarbonate 22, BUN 76, creatinine 6.9. Chest x-ray reveals pleural effusion and atelectasis at the left base without change. IMPRESSION: A 73-year-old with morbid obesity, acute hypoxemic respiratory failure, methicillin- resistant Staphylococcus aureus, acute renal failure, diastolic heart failure, and generalized poor performance status. With the patient's weight and mental status, it has been difficult to clear his airways. He has continued to have intermittent atelectasis in the left lung. His overall prognosis is poor. RECOMMENDATIONS: 1. Continue BiPAP at bedtime and p.r.n. 2. Continue augmented bronchial hygiene. 3. Hemodialysis under the direction of nephrology. 4. Overall prognosis is poor. His end of life discussions have been performed by Dr. Alejandre. If he has a downhill course, he will be allowed to have a natural . cc: MD Hayden Epstein MD
[2018-05-24] MEDS: DUONEB (A & A) INH SCH ×5 (03:33→23:57)
[2018-05-24 04:20] LABS: ALLEN TEST YES; BE -1.6 mmoll (-3.0-3.0); BLOOD TYPE ARTERIAL; HCO3-(ACT) 23.7 mmoll (20.0-26.0); METHB 1.3 % (0.0-1.5); O2(CT) 11.4 mL/dL (15.0-23.0); O2HB 96.1 % (95.0-99.0); PCO2(98.6) 36 mmHg (35-45); PO2(98.6) 135 mmHg (60-100); SAMPLE BLOOD; SAO2 98.1 % (95.0-100.0); THB 8.2 g/dL (11.5-17.4); pH(98.6) 7.41 (7.35-7.45)
[2018-05-24 04:21] LABS: MODALITY VENTIMASK
[2018-05-24 05:37] LABS: HEMATOCRIT 29.1 % (42.0-52.0); HEMOGLOBIN 8.9 g/dL (14.0-18.0); MCH 24.7 PG (27-31); MCHC 30.6 g/dL (33-37); MCV 80.8 FL (81-99); MPV 10.2 FL (7.4-10.4); RBC 3.6 XMIL (4.7-6.1); RDW 18.7 % (11.5-14.5); WBC 7.5 X1000 (4.8-10.8)
[2018-05-24 06:50] LABS: ALB/GLOB RATIO 0.6; ALBUMIN 3.1 g/dL (3.5-5.0); CALCIUM 9.1 mg/dL (8.8-10.2); CREATININE 7.3 mg/dL (0.7-1.2); POTASSIUM 5.2 mmol/L (3.5-5.1); TOTAL BILIRUBIN 0.89 mg/dL (0.20-1.00); TOTAL PROTEIN 8.3 g/dL (6.3-8.3)
[2018-05-24] MEDS: HUMALOG SUBQ SCH ×3 (06:50→23:01)
[2018-05-24] MEDS ORDERED: HEPARIN IV PRN (07:06)
[2018-05-24] MEDS ORDERED: NS 2,000 ML MISC PRN (07:06)
[2018-05-24] MEDS ORDERED: TIGHT: 0.2 ML/HR FOR DIALYSIS MISC PRN (07:06)
--- NOTE | 2018-05-24 07:28 | PROGRESS NOTE ---
DATE: 05/24/2018 SUBJECTIVE: Mr. Norton is doing fair. The patient is still trying to pull his IV and oxygen mask. At times, he is uncooperative for activity of daily living. Oral intake is poor. No nausea or vomiting. The patient did have one loose bowel movement. No further history available. OBJECTIVE: His vital signs noted blood pressure 125/68, pulse 60, pulse 65, respirations 24 and temperature 98.2 degrees.Lungs: Decreased air entry at both bases. CVS: S1 and S2 heard. Abdomen: Soft, globular. Bowel sounds present. Extremities: No cyanosis or clubbing. BANDING MACHINE OPERATOR: Patient is sleeping but arousable. Able to move all 4 limbs. LABORATORY DATA: Hemoglobin 8.9, hematocrit 29.1, WBC count 7.5 and platelet count 210,000. Blood gas results reviewed. PCO2 was 36, PO2 was 135. The pH 7.41, BUN 94, creatinine 7.3, and potassium 5.2. PROBLEMS: 1. The patient does have multiple medical problems including atelectasis with possible aspiration. Oral intake is poor. 2. Kidney failure. Patient is getting dialysis. 3. Possible aspiration pneumonia. 4. Diabetes mellitus. 5. Overall prognosis is poor. I am going to discharge patient to a telemetry bed. Continue rest of the treatment. cc: Hayden Alejandre MD
--- NOTE | 2018-05-24 08:01 | Diag Imaging Result Doc PS360 ---
EXAM: CHEST-PORTABLE INDICATION: respiratory failure TECHNIQUE: One view COMPARISON: 05/23/2018 FINDINGS: There has been interval placement of a left Vas-Cath. The tip projects over the region of the lower SVC. No pneumothorax is appreciated. The left pleural effusion with adjacent atelectasis and/or infiltrate has improved. No new consolidation is identified. Cardiac silhouette is stable. IMPRESSION: Interval placement of Vas-Cath and improvement of the left pleural effusion with adjacent atelectasis and/or infiltrate. Electronically signed by Tremaine Barajas 05/24/2018 7:59 AM
[2018-05-24] MEDS: MUCOMYST 20% INH SCH ×2 (08:04→20:40)
[2018-05-24] MEDS ORDERED: SEROQUEL PO SCH (09:00)
--- NOTE | 2018-05-24 09:43 | NEPHROLOGY PROGRESS NOTE ---
DATE: 05/24/2018 SUBJECTIVE: Mr. Norton is resting quietly. Head of the bed is elevated. He remains on Ventimask. He is aware of person though he remains slightly confused. OBJECTIVE: VITAL SIGNS: Temperature 98.2 degrees, blood pressure 125/60, heart rate 55, respirations 24. He is on 50% Ventimask. Last recorded saturation 98%. He has had 500 in, 165 out. LABS: [id number], potassium 5.2, chloride 99, CO2 21, BUN 94, creatinine 7.3, glucose 85. Anion gap of 23. Calcium 9.1. Albumin 3.1. White count 7.5. Hemoglobin 8, hematocrit 29.1 , platelet count 210,000. Arterial blood gases, pH 7.41, CO2 36, PO2 135, bicarb 23.7 on 50% Ventimask. GENERAL: This is a 73-year-old white male resting quietly in bed. Head of the bed is elevated. He remains on O2 support. SKIN: Warm and dry. HEENT: Normocephalic, atraumatic. Conjunctivae pale. He has SALONI. Mucous membranes dry. NECK: Supple. Trachea midline. He has no JVD. CARDIOVASCULAR: Regular rate and rhythm without murmurs, rubs or gallops. LUNGS: Clear to auscultation bilateral though he does have coarse breath sounds. Remains on O2. Equal excursion in the upright position. ABDOMEN: Large, round, soft, nontender. Positive bowel sounds. GENITOURINARY: Not inspected. Minimal void with dialysis assist. EXTREMITIES: Tract edema. No clubbing or cyanosis. NEUROLOGICAL: As mentioned above. ASSESSMENT AND PLAN: 1. Acute kidney injury without recovery. Patient has minimum urine output. His Vas-Cath has been removed. He has a left tunneled catheter to the left chest wall. This is dry and intact. We will plan for dialysis today. He is to be placed on a 2K bath. He is to dialyze for 3 hours. We will attempt to pull 3-4 L of ultrafiltration as tolerated. 2. Electrolytes and acid based balance. These are stable. 3. Anemia. This remains low but stable. I would like to thank you for allowing us to follow with this patient. Dictated by CAROLINE Charles for Benito Watson MD Face to face encounter, data reviewed, discussed with Ever Dallas on 05/24/18. I agree with the above assessment and plan of care. cc: CAROLINE Charles MD Bharat K. Vakharia, MD MTDD
[2018-05-24] MEDS: ZEBETA PO SCH ×2 (10:27→10:43)
[2018-05-24] MEDS: ASPIRIN PO SCH (10:27)
[2018-05-24] MEDS: LOVENOX SUBQ SCH (10:27)
[2018-05-24] MEDS: SINGULAIR PO SCH (10:29)
[2018-05-24] MEDS: APRESOLINE PO SCH ×4 (10:29→23:01)
[2018-05-24] MEDS: NORVASC PO SCH ×3 (10:29→10:42)
[2018-05-24] MEDS: CELEXA PO SCH (10:29)
[2018-05-24] MEDS: HYDROPHOR OINTMENT TOP SCH (10:43)
[2018-05-24] MEDS ORDERED: VANCOMYCIN 1 GM/NS 1 GM/250 ML IVPB IV ONE (17:00)
[2018-05-24] MEDS: PROTONIX IV SCH (22:58)
[2018-05-25] MEDS: HYDROPHOR OINTMENT TOP SCH ×3 (00:05→21:32)
--- NOTE | 2018-05-25 03:49 | PROGRESS NOTE ---
DATE: 05/24/2018 SUBJECTIVE: Mr. Norton is not doing well. The patient is poorly responsive. This morning, his respiratory rate was low. Blood pressure was low normal. No fever or chills. We informed the patient's family about his condition and poor prognosis. PHYSICAL EXAMINATION: I evaluated the patient this evening in dialysis. The patient is not doing well, poorly responsive. He was not able to recognize me. Vital signs noted. Neck supple. Decreased air entry, both the bases. Cardiovascular: S1 and S2. Bradycardia. A 2/6 systolic murmur at the apex. Abdomen: Soft, globular. Bowel sounds present. Central nervous system: The patient is awake, uncooperative for detailed exam. LABORATORY DATA: Done today, hemoglobin 8.9, hematocrit 29.1. Blood gas and electrolytes result reviewed. Chest x-ray did show some improvement of the left pleural effusion with adjacent atelectasis and/or infiltrate. IMPRESSION: Overall prognosis is fair to guarded. I did talk to the patient's this morning and explained the prognosis, and she is aware. cc: Hayden Alejandre MD
[2018-05-25] MEDS: DUONEB (A & A) INH SCH ×8 (04:15→23:05)
[2018-05-25] MEDS: ZOSYN 2.25 GM in NS 50 ML IV SCH ×2 (05:18→14:03)
[2018-05-25 05:34] LABS: ALLEN TEST YES; BE -1.4 mmoll (-3.0-3.0); BLOOD TYPE ARTERIAL; HCO3-(ACT) 23.8 mmoll (20.0-26.0); O2(CT) 12.8 mL/dL (15.0-23.0); O2HB 96.2 % (95.0-99.0); PO2(98.6) 126 mmHg (60-100); SAMPLE BLOOD; SAO2 98.2 % (95.0-100.0); THB 9.3 g/dL (11.5-17.4); pH(98.6) 7.25 (7.35-7.45)
[2018-05-25 05:37] LABS: MODALITY VENTIMASK; PCO2(98.6) 60 mmHg (35-45)
[2018-05-25] MEDS: MORPHINE IV PRN ×3 (05:47→14:01)
--- NOTE | 2018-05-25 05:53 | PULMONOLOGY PROGRESS NOTE ---
DATE: 05/24/2018 SUBJECTIVE: The patient continues to have periods of agitation, requiring some sedation. He is currently on a Venturi mask. He is asleep and does have some evidence of obstruction. OBJECTIVE: Vital Signs: The patient has been afebrile for the last 24 hours. Blood pressure 105/44, heart rate 60, respiratory rate 18, and oxygen saturation 100%. HEENT: Pupils are equal and reactive. Oropharynx is clear. Neck: Supple. Chest: Reveals better airflow on the left. Cardiac: S1, S2. Abdomen: Soft and obese. Extremities: Reveal trace edema. LABORATORIES: Chest x-ray reveals improvement in the left chest with decreased atelectasis and decreased pleural effusion. Arterial blood gas on Venturi mask this morning: pH 7.41, pCO2 of 36, and pO2 of 135. IMPRESSION: A 73-year-old with morbid obesity, acute hypoxemic respiratory failure, pleural effusions, atelectasis, and altered mental status. His arterial blood gas, and his chest x-ray have improved. It will be difficult to maintain a continued improvement in his pulmonary status if his mental status remains poor. RECOMMENDATIONS: 1. Continue dialysis under the direction Dr. Watson for acute on chronic renal failure. 2. Continue bronchial hygiene. 3. Continue antibiotics. 4. Continue oxygen. 5. Overall prognosis is poor, but he has had some clinical improvement. cc: MD Hayden Epstein MD
[2018-05-25] MEDS: HUMALOG SUBQ SCH ×5 (06:29→21:31)
--- NOTE | 2018-05-25 07:08 | Diag Imaging Result Doc PS360 ---
EXAM: CHEST-PORTABLE 05/25/2018 HISTORY: respiratory failure TECHNIQUE: AP portable at 0626 COMMENT: There is a left internal jugular central venous catheter with its tip at the confluence of the innominate veins. There is atelectasis or pneumonia in the left lower lobe. Considering differences in technique there has been no significant change since 05/24/2018. There is worsened left lower lobe atelectasis since 05/23/2018. IMPRESSION: Atelectasis versus pneumonia left lower lobe. Electronically signed by Terry Díaz 05/25/2018 7:05 AM
--- NOTE | 2018-05-25 07:24 | PROGRESS NOTE ---
DATE: 05/25/2018 SUBJECTIVE: Mr. Norton is doing fair. Oral intake is poor. The patient slept last night. When he woke up, the patient was yelling. No nausea or vomiting. The patient had dialysis yesterday. His history part was limited. OBJECTIVE: Vital signs: Noted. Neck: Supple. No JVD. Lungs: Bilateral good air entry present. CVS: S1 and S2 heard. Abdomen: Soft, globular. Bowel sounds present. POWER NUT RUNNER OPERATOR: Alert, awake. Able to move all 4 limbs, but uncooperative for detailed exam. The patient does have confusion and disorientation. LABORATORY DATA: Done yesterday noted. Blood gas done today: pH 7.25, pCO2 was 60, pO2 was 126. This was done on FiO2 of 50%. Blood sugar results reviewed. PATIENT'S PROBLEMS: 1. Hypoxemic respiratory failure. 2. Diabetes mellitus on sliding scale insulin. 3. Acute on chronic kidney disease on hemodialysis status post respiratory failure. OVERALL PROGNOSIS: Fair to guarded. Family is aware of the prognosis. We will continue current treatment and close observation. cc: Hayden Alejandre MD
[2018-05-25 07:36] LABS: HEMATOCRIT 29.8 % (42.0-52.0); HEMOGLOBIN 9.1 g/dL (14.0-18.0); MCH 24.7 PG (27-31); MCHC 30.5 g/dL (33-37); MPV 10.3 FL (7.4-10.4); RBC 3.68 XMIL (4.7-6.1); RDW 18.8 % (11.5-14.5); WBC 6.91 X1000 (4.8-10.8)
[2018-05-25 07:45] LABS: ALB/GLOB RATIO 0.6; ALBUMIN 3.1 g/dL (3.5-5.0); CALCIUM 8.6 mg/dL (8.8-10.2); CREATININE 5.9 mg/dL (0.7-1.2); POTASSIUM 4.9 mmol/L (3.5-5.1); TOTAL BILIRUBIN 1.05 mg/dL (0.20-1.00)
[2018-05-25] MEDS: MUCOMYST 20% INH SCH ×2 (07:50→19:15)
--- NOTE | 2018-05-25 10:32 | Diag Imaging Result Doc PS360 ---
EXAM: ABDOMEN FLAT/UPRIGHT 05/25/2018 HISTORY: pain TECHNIQUE: Flat and upright abdomen COMMENT: There is a Kessler catheter in the bladder. There is stool in the descending colon. There is no evidence of gastric or small bowel dilatation. There is no evidence organomegaly or mass. IMPRESSION: Nonspecific abdomen. Electronically signed by Terry Díaz 05/25/2018 10:29 AM
[2018-05-25] MEDS: SINGULAIR PO SCH ×2 (10:44→10:53)
[2018-05-25] MEDS: CELEXA PO SCH ×2 (10:44→10:54)
[2018-05-25] MEDS: APRESOLINE PO SCH ×4 (10:45→21:32)
[2018-05-25] MEDS: ZEBETA PO SCH ×2 (10:45→10:53)
[2018-05-25] MEDS: ASPIRIN PO SCH ×2 (10:45→10:55)
[2018-05-25] MEDS: NORVASC PO SCH ×2 (10:45→10:54)
[2018-05-25] MEDS: LOVENOX SUBQ SCH (10:54)
[2018-05-25] MEDS: ATIVAN IM PRN ×2 (11:07→17:06)
[2018-05-25] MEDS ORDERED: ATIVAN ONE (11:18)
[2018-05-25] MEDS ORDERED: ATIVAN IV ONE (11:52)
--- NOTE | 2018-05-25 14:54 | NEPHROLOGY PROGRESS NOTE ---
DATE: 05/25/2018 DATE AND TIME: Date seen 05/25/2018, time seen 824. SUBJECTIVE: Mr. Norton is sitting up in bed. Head of the bed is elevated. He is very confused today. He is in bilateral restraints. He is on a 50% Venti mask and he is crying aloud for help. OBJECTIVE: Vital Signs: Temperature is 99.1, blood pressure 140/51, heart rate 85, respirations 18. He is on 50% Ventimask. Last recorded saturation 98%. He has had 350 in, 3400 out, with 3.3 L removed on dialysis yesterday. LABS: Sodium 139, potassium 4.9, chloride 95, CO2 23, BUN 66, creatinine 5.9, glucose 86. His anion gap is 21, calcium is 8.6, albumin is 3.1. White count 6.91, hemoglobin 9.1, hematocrit 29.8, with a platelet count of 205,000. PHYSICAL EXAMINATION: General: This is a 73-year-old white male who is currently resting in bed. He is in moderate distress. He has been restrained. He is confused. HEENT: Normocephalic, atraumatic. Conjunctiva is pale. He has SALONI. Mucous membranes are dry. Neck : Supple, trachea midline. No JVD in the upright position. Cardiovascular: He is regular rate and rhythm. He is without murmur or gallop. Lungs: Coarse breath sounds bilateral. He remains on O2. Abdomen: Large, round, soft, nontender. Positive bowel sounds. Genitourinary: Not inspected. Patient has been voiding with dialysis assist. Extremities: He has trace edema. No clubbing or cyanosis. Neurologic: As above. ASSESSMENT AND PLAN: 1. Acute kidney injury without recovery. Patient has a dialysis tunneled catheter to the left chest wall. This remains intact. No indications for treatment today. We will plan for dialysis again tomorrow per routine of Tuesday, Tuesday, Tuesday. 2. Electrolytes, acid-base balance. These are fairly stable. 3. Anemia. This is low, but stable. 4. Encephalopathy. Patient remains confused. He is in mild distress secondary to his confusion. He has bilateral restraints in place. I would like to thank you for allowing us to follow with this patient. Discussed with staff. Going to hospice. rg Dictated by CAROLINE Charles for Benito Watson MD Face to face encounter, data reviewed, discussed with Ever Dallas on 05/25/18. I agree with the above assessment and plan of care. cc: CAROLINE Charles MD Bharat K. Vakharia, MD [facility]ONS[facility] HOSPITALS[facility]ra
[2018-05-25] MEDS ORDERED: STERILE WATER INJ. INJ ONE (17:26)
[2018-05-25] MEDS ORDERED: GEODON IM ONE (17:26)
[2018-05-25] MEDS: DILAUDID IV PRN ×2 (17:51→21:25)
--- NOTE | 2018-05-25 18:04 | PROGRESS NOTE ---
DATE: 05/25/2018 SUBJECTIVE: Mr. Norton is not doing well. The patient was constantly yelling, uncomfortable. came, she was concerned. According to , she is much more interested in comfort care than anything else. She also requested to stop dialysis. I did talk to palliative care nurse. requested hospice. She wants to stop all other medication. I called again this evening, discussed with her patient's condition and plan, and again requested comfort care. I am going to start comfort care only. understood by doing, her goal is to keep the patient comfortable. Not to worry about anything else. I re-evaluated the patient. I am going to stop his antibiotics, keep oxygen, pain medicine and we are going to stop dialysis. By doing that, the understood end of life is closer, prognosis is poor and she is in agreement. cc: Hayden Alejandre MD
[2018-05-25] MEDS: ATIVAN IV PRN (21:22)
[2018-05-25] MEDS: PROTONIX IV SCH (21:23)
--- NOTE | 2018-05-26 01:41 | PULMONOLOGY PROGRESS NOTE ---
DATE: 05/25/2018 SUBJECTIVE: The patient is currently sleeping but arousable. He will not follow commands. He was agitated earlier today. OBJECTIVE: Vital Signs: Maximum temperature in the last 24 hours 99.3 degrees, BP 116/58, heart rate 77, respiratory rate 20, oxygen saturation 97% on Venturi mask. HEENT: Pupils are equal and reactive. Oropharynx is dry but clear. Neck: Supple. Chest: Reveals diminished breath sounds left base with scattered rhonchi. Cardiac: S1 and S2. Abdomen: Obese and soft. Extremities: Reveal trace edema. LABORATORIES: White blood count 6.91, hemoglobin 9.1, platelet count 205,000. Arterial blood gas, pH 7.25, pCO2 of 60, PO2 of 126. Chest x-ray reveals continued atelectasis/pneumonia/effusion at the left base. IMPRESSION: A 73-year-old male who has been in the hospital for 26 days and continues to do poorly. He has acute hypoxemic and acute hypercapnic respiratory failure, pleural effusion, pneumonia, delirium, with acute renal failure. I have reviewed Dr. Alejandre's notes from this morning and this evening. Mr. Norton' has requested comfort measures. Given his age and comorbidities, his prognosis is extremely poor. He is a candidate for hospice and comfort measures. RECOMMENDATIONS: 1. Continue oxygen or BiPAP as needed for comfort. 2. Agree with initiation of comfort measures as per Dr. Alejandre's note. cc: MD Hayden Epstein MD
[2018-05-26] MEDS: DUONEB (A & A) INH SCH ×6 (03:35→23:50)
[2018-05-26] MEDS: ATIVAN IV PRN ×4 (04:57→23:44)
[2018-05-26] MEDS: DILAUDID IV PRN ×4 (05:00→21:58)
--- NOTE | 2018-05-26 07:34 | PROGRESS NOTE ---
DATE: 05/26/2018 SUBJECTIVE: Mr. Norton is sleeping comfortably. He does not seem to be in any pain. No fever or chills. No nausea or vomiting. The patient is not yelling. After discussing with his , I decided to do comfort care. His 's main concern was to keep the patient comfortable. Overall prognosis was poor. Vital signs noted. Decreased air entry in both lower lung field. CVS: S1 and S2 heard. Abdomen soft, globular. Bowel sounds present. WELDER 2ND SHIFT: The patient is sleeping, responding to painful stimuli only. PATIENT PROBLEMS: 1. [id number] respiratory failure. 2. Diabetes mellitus. 3. Pneumonia. 4. Morbid obesity. PLAN: Our goal is to keep the patient comfortable, stress free. Currently, the patient is not in any distress. We will continue current treatment. I appreciate Dr. Delgado's help managing this patient and recommendation. Dr. Delgado's note from yesterday evening reviewed. cc: Hayden Alejandre MD
[2018-05-26] MEDS: MUCOMYST 20% INH SCH ×2 (08:39→19:25)
[2018-05-26] MEDS: LOVENOX SUBQ SCH (08:59)
[2018-05-26] MEDS: HYDROPHOR OINTMENT TOP SCH ×2 (08:59→22:02)
[2018-05-26] MEDS: HUMALOG SUBQ SCH ×4 (08:59→22:01)
[2018-05-26] MEDS: APRESOLINE PO SCH ×2 (09:00→15:12)
[2018-05-26] MEDS: CELEXA PO SCH (09:00)
[2018-05-26] MEDS: NORVASC PO SCH (09:00)
[2018-05-26] MEDS: ZEBETA PO SCH (09:01)
[2018-05-26] MEDS: PROTONIX IV SCH (22:01)
[2018-05-27] MEDS: DILAUDID IV PRN ×4 (01:02→19:52)
[2018-05-27] MEDS: DUONEB (A & A) INH SCH ×2 (05:44→08:57)
[2018-05-27] MEDS: APRESOLINE PO SCH ×4 (07:04→23:52)
[2018-05-27] MEDS: HUMALOG SUBQ SCH ×4 (07:05→23:52)
[2018-05-27] MEDS: ATIVAN IV PRN ×3 (07:30→15:21)
[2018-05-27] MEDS: CELEXA PO SCH (08:23)
[2018-05-27] MEDS: ZEBETA PO SCH (08:24)
[2018-05-27] MEDS: NORVASC PO SCH (08:24)
[2018-05-27] MEDS: MUCOMYST 20% INH SCH (08:57)
[2018-05-27] MEDS: HYDROPHOR OINTMENT TOP SCH ×2 (10:56→23:53)
[2018-05-27] MEDS: LOVENOX SUBQ SCH (10:56)
--- NOTE | 2018-05-27 11:12 | PROGRESS NOTE ---
DATE: 05/27/2018 SUBJECTIVE: Mr. Norton is doing fair. The patient is on comfort care. The patient is comfortable. No high-grade fever, chills. Vital signs stable. Yesterday, family requested not to do even Accu-Chek, which I stopped today. The patient does not seem to be in any pain. OBJECTIVE: Vital Signs: Vital signs reviewed. Lungs: Decreased air entry in the lower lung field. Heart: S1 and S2 heard. Abdomen: Soft, globular. Bowel sounds hypoactive. Extremities: No acute DVT. NURSE CARE MANAGER: Patient is sleeping and sedated. Overall prognosis fair to guarded. As per family's request, I am trying to keep the patient as comfortable as possible. cc: Hayden Alejandre MD
--- NOTE | 2018-05-27 20:46 | PULMONOLOGY PROGRESS NOTE ---
DATE: 05/27/2018 SUBJECTIVE: The patient was resting quietly when I came in. He does not respond when I call his name. He has no increased work of breathing. OBJECTIVE: The patient has been afebrile for the last 24 hours. Blood pressure 103/52, heart rate 79, oxygen saturation 81%. HEENT: Pupils are equal and reactive. Oropharynx is clear. Neck: Is supple. Chest: Reveals diminished breath sounds throughout the left chest. Cardiac: S1-S2. Abdomen: Obese and soft. Extremities: Reveal +1 edema. IMPRESSION: A 73-year-old male with prolonged hospital course without improvement. He has continued to have hypoxemic respiratory failure with progression along with renal failure. His mental status continues to decline. Patient's family has requested no Accu- Cheks and are requesting comfort measures only. According to the respiratory therapist, they would also like the nebulizer medications discontinued and it does not appear that they are providing comfort. RECOMMENDATIONS: 1. Continue comfort medications. 2. End-of-life issues have been addressed. He will be allowed to have a natural if he has a cardiac arrest. cc: MD Hayden Epstein MD MTDD
[2018-05-27] MEDS: PROTONIX IV SCH (22:54)
[2018-05-28] MEDS: DILAUDID IV PRN ×4 (00:55→14:06)
[2018-05-28] MEDS: ATIVAN IV PRN ×3 (03:53→17:05)
[2018-05-28] MEDS: HUMALOG SUBQ SCH ×3 (06:04→17:04)
[2018-05-28] MEDS: LOVENOX SUBQ SCH (08:40)
[2018-05-28] MEDS: HYDROPHOR OINTMENT TOP SCH ×2 (08:40→22:30)
[2018-05-28] MEDS: APRESOLINE PO SCH ×2 (08:48→14:31)
[2018-05-28] MEDS: CELEXA PO SCH (08:48)
[2018-05-28] MEDS: ZEBETA PO SCH (08:49)
[2018-05-28] MEDS: NORVASC PO SCH (08:49)
--- NOTE | 2018-05-28 10:30 | PROGRESS NOTE ---
DATE: 05/28/2018 SUBJECTIVE: Mr. Norton is resting quietly. He had a temperature of 99.6 degrees. At times, patient seems to be in pain and we have to give him pain medicine. We are giving him Ativan for stress. Patient is most of the time comfortable. No high-grade fever, chills, nausea, vomiting. OBJECTIVE: Vital signs: Noted. Lungs: Decreased air entry both the bases. Neck: Supple. Abdomen: Soft, globular. Bowel sounds present. CVS: S1 and S2 heard. ASSESSMENT: 1. Patient does have multiple medical problems, including chronic kidney disease. His dialysis is on hold. 2. Possible aspiration pneumonia. 3. History of hypertension. PLAN: To continue comfort care as per family's request. cc: Hayden Alejandre MD
[2018-05-28 20:59] VITALS: BP 140/52
[2018-05-28] MEDS: PROTONIX IV SCH (22:35)
[2018-05-29] MEDS: DILAUDID IV PRN (01:25)
[2018-05-29] MEDS: HUMALOG SUBQ SCH (01:32)
[2018-05-29] MEDS: APRESOLINE PO SCH (01:33)
--- NOTE | 2018-05-30 05:51 | DISCHARGE SUMMARY ---
ADMISSION DATE: 04/29/2018 DISCHARGE DATE: 05/29/2018 FINAL DISCHARGE DIAGNOSES: 1. Acute hypoxemic respiratory failure. 2. Aspiration pneumonia. 3. Congestive heart failure. 4. Atrial fibrillation. 5. Cirrhosis of the liver. 6. Uncontrolled diabetes mellitus. 7. Pressure sore on the leg. 8. Osteoarthritis sleep apnea. 9. History of hypothyroidism. 10. Depression. 11. Morbid obesity. 12. Benign prostatic hypertrophy. 13. Acute on chronic kidney disease requiring hemodialysis. HISTORY OF PRESENT ILLNESS: Mr. Norton, 73-year-old white gentleman, morbidly obese, initially presented with shortness of breath, chest congestion, and leg swelling. The patient also had 101.4 fever, evidence of fluid overload. Patient found to have a pleural effusion, evidence of chronic kidney disease. The patient was admitted to [facility] [place]. The patient was transferred to [facility] for further evaluation. In [facility], patient found to have near-complete opacifications of his left hemithorax. Pulmonary consult obtained. The patient had CT scan done. There was possibility of aspiration. The patient was treated with IV antibiotics, pulmonary toilet, bronchodilator treatment, close observation. The patient underwent a bronchoscopy. Patient developed significant hypoxemia requiring intubation and mechanical ventilation. Patient, later on, extubated successfully. Hospital course was complicated by atrial fibrillation with rapid ventricular response, pneumonia, acute on chronic kidney disease requiring hemodialysis. Family requested DNR. The patient was transferred to [facility]. The patient did have some confusion and agitation. The patient's clinical condition continued to deteriorate. The patient's plan was to send him to [facility] for [facility]hab, but his clinical condition continued to deteriorate. At times, patient was agitated and more confused requiring restraints. Family requested comfort care only. They requested to stop dialysis, even Accu-Chek. We stopped all heroic measures, and tried to keep the patient comfortable. Patient remained comfortable. Clinical condition continued to deteriorate, and the patient on May 29 at 1:45 a.m. Family was aware of poor prognosis. Last blood work done on May 25: Hemoglobin 9.1, hematocrit 29.8, WBC count 6.91, platelet count was 205,000. Blood gas: pH 7.25, pCO2 was 60, pO2 126. This was done with Ventimask at 50% of FiO2. Lab done on May 25: BUN 66, creatinine 5.9. The patient was on hemodialysis at this time. Potassium 4.9. The patient had hepatitis panel done, and it was benign. Patient's last chest x-ray done on May 25: Atelectasis versus pneumonia left lower lobe. cc: Hayden Alejandre MD
--- NOTE | 2018-06-02 20:27 | DISCHARGE SUMMARY ---
ADMISSION DATE: 04/29/2018 DISCHARGE DATE: 05/29/2018 DISCHARGE SUMMARY ADDENDUM: I reviewed Mr. Norton' record. The patient does not qualify for sepsis due to osteomyelitis. cc: Hayden Alejandre MD
== END 2018-05-29 01:45 | disposition expired | DRG 207 ==
LOC: P.ED 17:33 → P.ICU 19:24 → SUATTDRO 19:24 → ICU 04-30 16:47 → 3S 05-18 10:40 → 3N 05-24 15:03
PROVIDERS: ADMIT Internal Medicine; ATTEND Internal Medicine
CPT/HCPCS: 71010; 71045; 71250; 73660; 74000; 74018; 74019; 74020; 76770; 77001; 80048; 80053; 80069; 80074; 80076; 80202; 81001; 82550; 82570; 82805; 82948; 83605; 83735; 83880; 84100; 84156; 84300; 84484; 85025; 85027; 85610; 85730; 87015; 87040; 87070; 87077; 87102; 87116; 87147; 87186; 87205; 87206; 88112; 88300; 92610; 93005; 93010; 93306; 94002; 94003; 94640; 94660; 94667; 94668; 94761; 94762; 96365; 96368; 96375; 97110; 97162; 97530; 99283; 99285; 99291; A9270; C1750; C8929; C9113; J0131; J0171; J1170; J1450; J1644; J1650; J1815; J1940; J2060; J2250; J2270; J2543; J3010; J3370; J3475; J3486; J7030; J7040; J7050; Q9957; S0164; XXXXX